=== PATIENT | male | born 1955 | race Two or more races ===

== ENCOUNTER 2024-05-13 08:08 | Outpatient (REF) | payer OTHER, SELFPAY ==
--- NOTE | 2024-05-13 08:13 | EMG_ITS ---
Bilateral median and ulnar motor and sensory studies were performed. Bilateral radial sensory study was performed and paraspinal muscles were tested with a needle. IMPRESSION: Mild bilateral ulnar neuropathy across cubital tunnel. There is no evidence of median neuropathy. MD RACHEL Herman/BENNY / [phone]
== END 2024-05-13 08:09 | disposition home or self-care (01) ==
LOC: HO.NEURO 08:08
PROVIDERS: PCP Internal Medicine; Visit Provider Internal Medicine
DX: Z13.89 Encounter for screening for other disorder (principal)

== ENCOUNTER 2024-07-16 10:49 | Outpatient (AMB) | payer OTHER, SELFPAY ==
--- NOTE | 2024-07-16 11:01 | HO.NEPHOV ---
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 Accompanied by: Self / Same As Patient Allergies azithromycin Allergy (Unknown, Verified 07/16/24 11:17) Rash levofloxacin Allergy (Unknown, Verified 07/16/24 11:17) rash metoprolol Allergy (Unknown, Verified 07/16/24 11:17) Rash penicillin G Allergy (Unknown, Verified 07/16/24 11:17) rash rifaximin [Xifaxan] Allergy (Unknown, Verified 07/16/24 11:17) Rash risperidone Allergy (Unknown, Verified 07/16/24 11:17) Rash Sulfacet-R Allergy (Unknown, Uncoded 07/16/24 11:17) Rash Medication List - Last Reviewed 07/16/24 by Mare Warner [place] apixaban (Eliquis) 5 mg PO BID divalproex ER 500 mg PO TID fluocinolone acetonide oil 0.01% drps otic (ears) lisinopril 40 mg PO DAILY lorazepam 1 mg PO DAILY PRN propranolol 60 mg PO BID quetiapine (Seroquel) 100 mg PO DAILY quetiapine mg PO DAILY rosuvastatin 20 mg PO BEDTIME HPI Comments Details: 68-year-old man with a history of hypertension has been referred for evaluation of hyponatremia. Few months ago he was hospitalized. He had diarrhea and was diagnosed with hypovolemic hyponatremia. Serum sodium was 121 at time admission. Subsequently improved to 131. Recent sodium was 132 and hence the referral. Of note he is on divalproex and lisinopril. He admits to drinking plenty of water. No specific urinary complaints. No polyuria polydipsia. History of renal cyst He has been followed by Dr. Durant. Underwent cystoscopy which was essentially unremarkable. [facility] Medical History GERD (gastroesophageal reflux disease) Polyp of colon Anxiety and depression Stenosis, cervical spine HLD (hyperlipidemia) H/O bipolar disorder Insomnia HTN (hypertension) Microscopic hematuria (~2016) Surgical History History of total knee replacement Family History Father CAD (coronary artery disease) Brother CAD (coronary artery disease) Review of Systems Const Denies fever(s) and Denies weight loss Card Denies chest pain Resp Denies cough and Denies hemoptysis GI Denies abdominal pain, Denies diarrhea and Denies nausea Musc Denies back pain Neuro Denies focal weakness Physical Exam Vital Signs: Last Vital Signs Pulse 60 07/16/24 11:15 BP 114/68 07/16/24 11:15 Pulse Ox 96 07/16/24 11:15 Oxygen Delivery Method Room Air 07/16/24 11:15 Const General: comfortable; No acute distress Orientation/consciousness: patient oriented x3 Eyes General: appearance normal, both eyes and all related structures Visual Red[place]: normal visual redding by confrontation Neck Neck: Yes supple and Yes no JVD Resp Effort & Inspection: normal respiratory effort and respiratory effort not decreased Auscultation: rhonchi Cardio Palpation: no palpable S3 and no palpable S4 Heart sounds: no rubs GI Inspection: Yes normal to inspection Palpation (GI): Soft to palpation Percussion: Yes normal to percussion Auscultation: normal bowel sounds General: Yes no CVA tenderness Back/Spine/Pelvis Back: no CVA tenderness Skin General skin exam: no petechiae and no purpura Neuro General: patient oriented x3 and no focal motor deficits Extrem General: No clubbing and No edema Results Reviewed Results Reviewed: Sodium 132 Magnesium 2.8 in 02/25/2024. Serum creatinine was 0.56 Nephrology Results: No Data to Display Assessment & Plan Assessment & Plan (1) HTN (hypertension): Code(s): I10 - Essential (primary) hypertension Category: Medical (2) Hyponatremia: Code(s): E87.1 - Hypo-osmolality and hyponatremia Category: Medical Plan 68-year-old man with history of hypertension and hyponatremia. Blood pressure is well controlled. Hyponatremia most likely due to decreased free water clearance. He has been drinking excess free water which could be a contributing factor. Both divalproex and lisinopril could be contributing to decreased free water clearance. I have initiated a workup for hyponatremia including urine studies. In the meantime encouraged him to limit free water intake. Switch lisinopril to valsartan and recheck serum sodium. Goal is to maintain serum sodium more than 130 millimoles. Magnesium was elevated in 02/25/2024. Recheck magnesium calcium phosphorus and PTH today. . Orders: Orders Creatinine Urine Today E87.1 - Hypo-osmolality and hyponatremia, I10 - Essential (primary) hypertension Osmolality, Serum Today E87.1 - Hypo-osmolality and hyponatremia, I10 - Essential (primary) hypertension Parathyroid Hormone Intact Today E87.1 - Hypo-osmolality and hyponatremia, I10 - Essential (primary) hypertension Basic Metabolic Panel Today E87.1 - Hypo-osmolality and hyponatremia, I10 - Essential (primary) hypertension TSH reflex Free T4 Today E87.1 - Hypo-osmolality and hyponatremia, I10 - Essential (primary) hypertension Sodium Urine Random Today E87.1 - Hypo-osmolality and hyponatremia, I10 - Essential (primary) hypertension Osmolality Urine Today E87.1 - Hypo-osmolality and hyponatremia, I10 - Essential (primary) hypertension Magnesium Today E87.1 - Hypo-osmolality and hyponatremia, I10 - Essential (primary) hypertension Phosphorus Today E87.1 - Hypo-osmolality and hyponatremia, I10 - Essential (primary) hypertension Medications: New valsartan 80 mg PO DAILY 30 tabs 1RF Coding Level of Care Code New Pt Level 4 (42145) Diagnoses HTN (hypertension) I10 Hyponatremia E87.1
[2024-07-16 11:15] VITALS: BP 114/68; PULSE 60; O2SAT 96
== END 2024-07-16 11:47 | disposition home or self-care (01) ==
PROVIDERS: PCP Internal Medicine; Referring Provider Internal Medicine; Visit Provider Internal Medicine Hypertension Specialist
DX: I10 Essential (primary) hypertension (principal); E87.1 Hypo-osmolality and hyponatremia
CPT/HCPCS: 99204

== ENCOUNTER → 2024-07-16 10:49 | Outpatient (BNVA) | payer OTHER, SELFPAY | PROVIDERS: PCP Internal Medicine; Referring Provider Internal Medicine; Visit Provider Internal Medicine Hypertension Specialist ==

== ENCOUNTER 2024-07-16 11:33 | Outpatient (REF) | payer OTHER, SELFPAY ==
[2024-07-16 18:47] LABS: Anion Gap 12 (12-20); Blood Urea Nitrogen 11 mg/dL (9-16); Calcium 9.6 mg/dL (8.4-10.2); Carbon Dioxide 27 mmol/L (22-29); Chloride 101 mmol/L (96-108); Estimated Glomerular Filt Rate > 60; Glucose Random 105 mg/dL (60-115); Magnesium 2.1 mg/dL (1.6-2.6); Potassium 4.6 mmol/L (3.3-5.1); Sodium 135 mmol/L (135-145); TSH reflex Free T4 1.19 uIU/mL (0.32-4.0)
[2024-07-16 18:53] LABS: Osmolality, Serum 281 mosm/kg (281-305)
[2024-07-16 19:01] LABS: Sodium Urine Random < 20.0 mmol/L
[2024-07-16 19:12] LABS: Osmolality Urine 628 mosm/kg (373-1093)
[2024-07-17 05:26] LABS: Parathyroid Hormone Intact 39.2 pg/mL (8.7-77.1)
== END 2024-07-16 11:34 | disposition home or self-care (01) ==
LOC: HO.HKASLDS 11:33
PROVIDERS: Visit Provider Internal Medicine Hypertension Specialist
DX: E87.1 Hypo-osmolality and hyponatremia (principal); I10 Essential (primary) hypertension
CPT/HCPCS: 36415; 80048; 82570; 83735; 83930; 83935; 83970; 84300; 84443; 99202

== ENCOUNTER 2024-07-30 09:18 | Outpatient (AMB) | payer OTHER, SELFPAY ==
[2024-07-30 09:32] VITALS: BP 122/66; PULSE 61; O2SAT 95; BMI 36.0
--- NOTE | 2024-07-30 09:32 | HO.NEPHOV ---
Vital Signs 07/30/24 09:32 Height 5 ft 6 in Weight 223 lb BMI 36.0 BP 122/66 Blood Pressure Location Lt brachial Position Sitting Pulse 61 Pulse Source Pulse Oximeter Pulse Oximetry (%) 95 Oxygen Delivery Method Room Air Intake Visit Reasons: 3 weeks follow up/ Conf Director Software Quality Assurance Required: No Accompanied by: Self / Same As Patient Allergies azithromycin Allergy (Unknown, Verified 07/30/24 09:36) Rash levofloxacin Allergy (Unknown, Verified 07/30/24 09:36) rash metoprolol Allergy (Unknown, Verified 07/30/24 09:36) Rash penicillin G Allergy (Unknown, Verified 07/30/24 09:36) rash rifaximin [Xifaxan] Allergy (Unknown, Verified 07/30/24 09:36) Rash risperidone Allergy (Unknown, Verified 07/30/24 09:36) Rash Sulfacet-R Allergy (Unknown, Uncoded 07/16/24 11:17) Rash Medication List - Last Reconciled 07/30/24 by Cyrus Messina MD apixaban (Eliquis) 5 mg PO BID divalproex ER 500 mg PO TID fluocinolone acetonide oil 0.01% drps otic (ears) lorazepam 1 mg PO DAILY PRN propranolol 60 mg PO BID quetiapine (Seroquel) 100 mg PO DAILY quetiapine mg PO DAILY rosuvastatin 20 mg PO BEDTIME valsartan 80 mg PO DAILY HPI Comments Details: 68-year-old man with a history of hypertension has been referred for evaluation of hyponatremia. Few months ago he was hospitalized. He had diarrhea and was diagnosed with hypovolemic hyponatremia. Serum sodium was 121 at time admission. Subsequently improved to 131. Recent sodium was 132 and hence the referral. Of note he is on divalproex and lisinopril. He admits to drinking plenty of water. No specific urinary complaints. No polyuria polydipsia. History of renal cyst He has been followed by Dr. Durant. Underwent cystoscopy which was essentially unremarkable. [facility] Medical History (Updated 07/16/24 @ 11:27 by Cyrus Messina MD) GERD (gastroesophageal reflux disease) Polyp of colon Anxiety and depression Stenosis, cervical spine HLD (hyperlipidemia) H/O bipolar disorder Insomnia HTN (hypertension) Microscopic hematuria (~2016) Surgical History History of total knee replacement Family History Father CAD (coronary artery disease) Brother CAD (coronary artery disease) Physical Exam Vital Signs: Last Vital Signs Pulse 61 07/30/24 09:32 BP 122/66 07/30/24 09:32 Pulse Ox 95 07/30/24 09:32 Oxygen Delivery Method Room Air 07/30/24 09:32 BMI result Body Mass Index 36.0 Const General: comfortable; No acute distress Orientation/consciousness: patient oriented x3 Eyes General: appearance normal, both eyes and all related structures Visual [place]: normal visual redding by confrontation Neck Neck: Yes supple and Yes no JVD Resp Effort & Inspection: normal respiratory effort and respiratory effort not decreased Auscultation: rhonchi Cardio Palpation: no palpable S3 and no palpable S4 Heart sounds: no rubs GI Inspection: Yes normal to inspection Palpation (GI): Soft to palpation Percussion: Yes normal to percussion Auscultation: normal bowel sounds General: Yes no CVA tenderness Back/Spine/Pelvis Back: no CVA tenderness Skin General skin exam: no petechiae and no purpura Neuro General: patient oriented x3 and no focal motor deficits Extrem General: No clubbing and No edema Results Reviewed Nephrology Results: Sodium 135 mmol/L (135-145) 07/16/24 Potassium 4.6 mmol/L (3.3-5.1) 07/16/24 Chloride 101 mmol/L (96-108) 07/16/24 Carbon Dioxide 27 mmol/L (22-29) 07/16/24 BUN 11 mg/dL (9-16) 07/16/24 Creatinine 0.66 mg/dL (0.5-1.4) 07/16/24 Calcium 9.6 mg/dL (8.4-10.2) 07/16/24 PTH Intact 39.2 pg/mL (8.7-77.1) 07/16/24 Urine Creatinine 158.50 mg/dL 07/16/24 Assessment & Plan Assessment & Plan (1) HTN (hypertension): Code(s): I10 - Essential (primary) hypertension Category: Medical (2) Hyponatremia: Code(s): E87.1 - Hypo-osmolality and hyponatremia Category: Medical Plan 68-year-old man with history of hypertension and hyponatremia. Blood pressure is well controlled. Hyponatremia most likely due to decreased free water clearance. He has been drinking excess free water which could be a contributing factor. Both divalproex and lisinopril could be contributing to decreased free water clearance. In the meantime encouraged him to limit free water intake. Switched lisinopril to valsartan Tolerating well Goal is to maintain serum sodium more than 133 millimoles. . Orders: Orders Magnesium 6 Months E87.1 - Hypo-osmolality and hyponatremia Basic Metabolic Panel 6 Months E87.1 - Hypo-osmolality and hyponatremia Phosphorus 6 Months E87.1 - Hypo-osmolality and hyponatremia Coding Level of Care Code Est Pt Level 4 (17138) Diagnoses HTN (hypertension) I10 Hyponatremia E87.1
== END 2024-07-30 10:05 | disposition home or self-care (01) ==
PROVIDERS: PCP Internal Medicine; Visit Provider Internal Medicine Hypertension Specialist
DX: I10 Essential (primary) hypertension (principal); E87.1 Hypo-osmolality and hyponatremia
CPT/HCPCS: 99214

== ENCOUNTER → 2024-07-30 09:18 | Outpatient (BNVA) | payer OTHER, SELFPAY | PROVIDERS: PCP Internal Medicine; Visit Provider Internal Medicine Hypertension Specialist | DX: I10 Essential (primary) hypertension (principal); E87.1 Hypo-osmolality and hyponatremia | CPT/HCPCS: 99212 ==

== ENCOUNTER 2025-01-13 09:41 | Outpatient (AMB) | payer OTHER, SELFPAY ==
--- NOTE | 2025-01-13 10:14 | HO.NEPHOV ---
Vital Signs 01/13/25 10:16 Height 5 ft 6 in Weight 231 lb 4 oz BMI 37.3 BP 132/70 Blood Pressure Location Lt brachial Position Sitting Pulse 68 Pulse Source Pulse Oximeter Pulse Oximetry (%) 98 Oxygen Delivery Method Room Air Intake Visit Reasons: Dr Messina pt- Rt side pain Hand Ii Blocker Required: No Accompanied by: Self / Same As Patient Allergies azithromycin Allergy (Unknown, Verified 01/13/25 10:16) Rash levofloxacin Allergy (Unknown, Verified 01/13/25 10:16) rash metoprolol Allergy (Unknown, Verified 01/13/25 10:16) Rash penicillin G Allergy (Unknown, Verified 01/13/25 10:16) rash rifaximin [Xifaxan] Allergy (Unknown, Verified 01/13/25 10:16) Rash risperidone Allergy (Unknown, Verified 01/13/25 10:16) Rash Sulfacet-R Allergy (Unknown, Uncoded 07/16/24 11:17) Rash HPI Comments Details: I had the privilege of seeing Imer as an urgent visit . He is a 68-year-old man with a history of hypertension as well as H/O hyponatremia. He is on divalproex and lisinopril. He has been having right flank pain without radiation. He denies hematuria, dysuria, fever, nausea, vomiting or diarrhea. He has a history of renal cyst and has seen Dr. Durant. He had cystoscopy in the past and apparently had been essentially unremarkable. He denies fever or any other systemic complaints [facility] Medical History (Updated 01/13/25 @ 10:33 by Mook Paris MD) GERD (gastroesophageal reflux disease) Polyp of colon Anxiety and depression Stenosis, cervical spine HLD (hyperlipidemia) H/O bipolar disorder Insomnia HTN (hypertension) Microscopic hematuria (~2015) Surgical History History of total knee replacement Family History Father CAD (coronary artery disease) Brother CAD (coronary artery disease) Review of Systems Const All systems reviewed & are unremarkable except as noted in HPI and below Physical Exam Vital Signs: Last Vital Signs Pulse 68 01/13/25 10:16 BP 132/70 01/13/25 10:16 Pulse Ox 98 01/13/25 10:16 Oxygen Delivery Method Room Air 01/13/25 10:16 BMI result Body Mass Index 37.3 Const General: comfortable and no acute distress Orientation/consciousness: patient oriented x3 HEENT Head: Yes normocephalic Mouth: Normal oral and palatal mucosa present Eyes EOM: EOMs intact bilaterally Neck Neck: Yes supple Resp Auscultation: clear to auscultation bilaterally Cardio Jugular venous distension: no JVD Rate: regular rate GI Palpation (GI): Soft to palpation Auscultation: normal bowel sounds General: Yes no CVA tenderness Back/Spine/Pelvis Back: no CVA tenderness Skin General skin exam: no rashes or lesions noted Neuro General: patient oriented x3 and moves all extremities Extrem General: Yes no pedal edema Assessment & Plan Assessment & Plan (1) Acute flank pain: Code(s): R10.9 - Unspecified abdominal pain Category: Medical (2) HTN (hypertension): Code(s): I10 - Essential (primary) hypertension Category: Medical Qualifiers: Hypertension type: primary hypertension Qualified Code(s): I10 - Essential (primary) hypertension Plan Flank pain - acute- needs to R/O renal stone; USS/ Labs/Urine studies ordered Blood pressure is well controlled. Tolerating current BP medications Further management is pending data.Most of visit time spent-- -- discussing differential diagnosis and management strategies Answered all questions. Has a F/U with Dr Mayuri YOU Orders: Orders UA and rflx microscopic Today I10 - Essential (primary) hypertension, R10.9 - Unspecified abdominal pain Creatinine Today I10 - Essential (primary) hypertension, R10.9 - Unspecified abdominal pain US renal BI 1 Week I10 - Essential (primary) hypertension, R10.9 - Unspecified abdominal pain Blood Urea Nitrogen Today I10 - Essential (primary) hypertension, R10.9 - Unspecified abdominal pain Electrolytes Today I10 - Essential (primary) hypertension, R10.9 - Unspecified abdominal pain Calcium Today I10 - Essential (primary) hypertension, R10.9 - Unspecified abdominal pain Coding Level of Care Code Est Pt Level 4 (11927) Diagnoses Acute flank pain R10.9 Primary hypertension I10 Hypertension type: primary hypertension
[2025-01-13 10:16] VITALS: BP 132/70; PULSE 68; O2SAT 98; BMI 37.3
--- OUTSIDE RECORDS SUMMARY | 2025-01-13 11:03 | XMS_ITS | Data Portability ---
Author Organization [employer] [place] [employer] Address [address] [place] [phone] Care Team Providers Care Tube Repairer Name Role Phone MIRIAM BUCHANAN Primary Care Provider [phone] [facility] OTHER Assessment Encounter Date Assessment Date Assessment LastModified by Organization Details LastModified Time 05/23/2024 05/23/2024 service called for abd pain found 68 yom with hx GERD, HTN, DM, IBS, bipolar and asthma c/o > 6 months LLQ abd pain, sensation of bloating able continue regular PO solid and fluid intake no n/v/d able continue regular activities reports 4 month prior colonscopsy with polyp bx at , unsuccessful attempts to obtain records unable to visualize records of colonsopsy or biopsy via HIE function VSS +LLQ tendenress, no guarding/no rebound #Chronic LLQ Pain pt to continue f/up with outpatient evaluation attempt PHR access for records otherwise return to primary team vkudesia Not available 05/24/2024 00:30:59 Plan of Treatment Reminders Order Date Submit Date Provider Last Modified By Organization Details Last Modified Time Details Appointments None record ed. Lab None record ed. Referral None record ed. Procedures None record ed. Surgeries None record ed. Imaging None record ed. Medication Orders None record ed. Patient TargetsNo targets recorded. Patient InstructionsNo instructions recorded. Reason for Referral None Reported. Medical Equipment None Reported. Allergies Allergen ID Allergen Name Allergen Category Reaction Reaction Severity Criticality Documentation Date Start Date Code Code System Note Provider Name and Address Organization Details Recorded Time 7731 Product containin g penicilli n (product) medicatio n Not available Not available Not available 08/05/2024 71737 8001 SNOMED Not Available [facility] - production 03:39:25 7732 metoprolo l Not available Not available Not available Not available 08/05/2024 6918 RxNorm Not Available [facility] - production 4 03:39:25 Medications Name Sig Start Date Stop Date Status Note LastModified by Organization Details LastModified Time neomycin-polymy verónica-hydrocort 3.5 mg/mL-10,000 unit/mL-1 % ear solution active Not Available Not Available Not Available trazodone 50 mg tablet active Not Available Not Available Not Available sucralfate 100 mg/mL oral suspension active Not Available Not Available N ot Available prednisone 20 mg tablet active Not Available Not Available No t Available clindamycin HCl 150 mg capsule active Not Available Not Availab le Not Available propranolol 60 mg tablet active Not Available Not Available No t Available amlodipine 5 mg tablet active Not Available Not Available Not Available doxycycline monohydrate 100 mg tablet active Not Available Not Available No t Available triamcinolone acetonide 0.1 % topical cream active Not Available Not Availabl e Not Available oxycodone-aceta minophen 5 mg-325 mg tablet active Not Available Not Available Not Available cephalexin 500 mg capsule active Not Available Not Available N ot Available tacrolimus 0.1 % topical ointment active Not Available Not Available Not Available prednisone 50 mg tablet TAKE 1 TABLET BY MOUTH EVERY DAY FOR 5 DAYS active Not Available Not Available No t Available divalproex ER 500 mg tablet,extended release 24 hr active Not Available Not Availabl e Not Available lorazepam 1 mg tablet active Not Available Not Available Not Available albuterol sulfate HFA 90 mcg/actuation aerosol inhaler INHALE 2 PUFFS BY MOUTH EVERY 4 TO 6 HOURS NEEDED FOR DYSPNEA active Not Available Not Available No t Available lisinopril 40 mg tablet active Not Available Not Available No t Available fluticasone propionate 50 mcg/actuation nasal spray,suspensio n active Not Available Not Available Not Available clotrimazole 1 % topical cream APPLY TWO TIMES A DAY FOR 14 DAYS active Not Available Not Available No t Available neomycin 3.5 mg/g-polymyxin B 10,000 unit/g-dexameth 0.1 % eye oint APPLY TO THE RIGHT EYE TWICE DAILY FOR 7 DAYS active Not Available Not Available No t Available Allergy Relief (loratadine) 10 mg tablet active Not Available Not Available No t Available ciprofloxacin 0.3 %-dexamethasone 0.1 % ear drops,suspensio n active Not Available Not Available Not Available rosuvastatin 20 mg tablet active Not Available Not Available No t Available alfuzosin ER 10 mg tablet,extended release 24 hr active Not Available Not Availabl e Not Available fluocinolone acetonide oil 0.01 % ear drops active Not Available Not Available Not Available quetiapine 50 mg tablet active Not Available Not Available No t Available Vitals Date Recorded Heart rate Oxygen saturation Oxygen saturation in Arterial blood by Pulse oximetry Body height Respiratory rate Body temperature Body weight Systolic blood pressure Diastolic blood pressure Provider Name and Address Organization Details Last Updated DateTime 4 72 /min 98 % 98 % 167.64 cm 16 /min 98.7 [degF] 958034. 16 g 138 mm[Hg] 88 mm[Hg] Not Available [facility] production 4 21:34:05 Social History None recorded. Functional Status None recorded. Mental Status None recorded. Family History Nothing Reported. Medical History No medical history recorded. Past Encounters Encounter ID Performer Location Encounter Start Date Encounter Closed Date Diagnosis/Indication Diagnosis SNOMED-CT Code Diagnosis ICD10 Code Diagnosis Note [id number] Marcin Alberto MD [facility] [address] [place] [phone] 05/23/2024 20:34:02 05/24/2024 18:49:08 Abdominal pain 94567066 R10.9 Health Concerns Section Related Observation LastModified by Organization Detai ls LastModified Time None Recorded Concern Status LastModified by Organization Details LastModified Time None Recorded Advance Directives Directive None Recorded Payers Encounter Date Sequence Insurance Name Policy Number Policy Michelle Covered Member ID Michelle Member ID Guarantor Name 05/23/2024 1 [facility] - DOS ON OR AFTER 2023 - DUAL ELIGIBLE - JAIL OPTIONS AND ONE CARE (MEDICARE REPLACEMENT/ADV ANTAGE - HMO) Imer Bennett [id number] Imer Bennett Notes Date Note Type Note Provider Name and Address Organization Details Recorded Time 05/23/2024 text/html HPI: PT's CP Mariah reporting abdominal pain.Members CP calling in to place a referral, member identified via name and . Per CP member has been up until about 2a with abdominal pain, BM x1 with blood noted on the toilet paper with wiping, no n/v, no bloating or tenderness, no fever/chills, no chest pain or sob, however, member reports that his legs are swollen. Member agreeable to an [facility] visit. ................... ................... ................... ................... ................... ................... ................... ........ [facility] Nurse Triage Notes (Elzbieta Mackenzie): Chief Complaints: Abdominal Pain PMH: Hypertension, Diabetes, COPD/Asthma Allergies: Penicillin, Metoprolol Other Allergies: PCN, metoprolol, risperdal, sulfa and levaquin Comments: [facility] RN did not require any additional information to process this visit. PMHx GERD, HTN, DM, IBS, bipolar and asthma. ALLERGIES- PCN, metoprolol, risperdal, sulfa and levaquin ................... ................... ................... ................... ................... ................... ................... ........ Conventional Mortgage Underwriter Note From Wellington Giles: [facility] makes pt contact, a 68 YO M w/ a CC of LLQ pain.PT explains a lengthy HX of pre existing illness. PT vitals obtained and WNL. PT describes 20 years ago began seeing blood w/ bowel movement. PTs doctor continually brushed him off over all the years. Eventually pt has a colonoscopy in january at [facility] where they found 2 polyps and took them for biopsy. PT explains he never received the results but his symptoms have been slowly getting worse. PT now has a new doctor, Dr. Patton in the [facility] who wants to repeat the colonoscopy and endoscopy but has no paperwork from the [facility]. [facility] contacts [facility] and explains the above mentioned. [facility] confirms that the pts medical documentation is fairly confusing. [facility] recommends PT somehow make a mychart account which would then give him access to the appropriate medical documents and then give them to to have the procedure done. [facility] explains [place] not have the means to immediately fix this issue with documentation. PT LLQ pain noted on palpation, although is recurring pain and symptoms of bloating. PT does have a prescribed stool softener that he explains works well but without it he would be in a lot of pain. [facility] confirms with PT the need for my chart to try and retrieve the documentation for his new [facility] doctor. [facility] explains if his pain gets suddenly worse or he cant have a bowel movement at all that he should seek a higher level of care. And to try and follow up with his PCP and . ................... ................... ................... ................... ................... ................... ................... ........ Disposition: Fulfilled Marcin Alberto MD [address] [facility], [place], [phone], [employer] 05/24/2024 00:31:11
--- OUTSIDE RECORDS SUMMARY | 2025-01-13 11:03 | XMS_ITS | Data Portability ---
Author Organization [place] [facility], Allergy Address [address] [address] Care Team Providers Care Burlap Spreader Name Role Phone MIRIAM BUCHANAN Primary Care Provider Assessment Encounter Date Assessment Date Assessment LastModified by Organization Details LastModified Time 11/25/2024 11/25/2024 Patient presents for evaluation of the left ear and the nose. Physical exam reveals intact TM with well-aerated middle ear space. Nasal mucosa is dry without evidence of bleeding. Agree with provider who recommended saline spray. Patient to use this QID. Also recommend saline gel at bedtime and a cool mist humidifier. Audiometric testing today reveals some advancement of his hearing loss on the left. Asymmetry previously worked up with MRI of IACs in 2019, which was reviewed today and was negative for acoustic neuroma. Suspect there is little utility in repeating the scan. Tympanometry today confirms no effusion. Maxillofacial sinus CT dated 10/24/24 reviewed today - no sinusitis. Reviewed with patient no evidence of infection in the ear or nose and no treatment required. Patient would like to return for nasal and throat evaluation, and this has been arranged. Also recommend he discuss this symptom with his PCP again and consider re-evaluation by pulmonology. We discussed that he should try not to clear the throat so forcefully. [email or web address] Not available 11/25/2024 10:27:10 01/01/2025 01/01/2025 69-year-old male presents for reevaluation of facial pain and blood-tinged mucus. Fiberoptic laryngoscopy today was benign and was without evidence of bleeding or purulence. Left upper dental extraction site is erythematous, but no alejandro purulence. We discussed that his symptoms are likely due to underlying dental infection. He had a CT maxilloface with contrast 10/24/2024 at [facility] which was personally reviewed. CT did not show any evidence of sinusitis. Incidental finding of right mucous retention cyst in the right maxillary sinus. There is also a small periapical lucency in the left cuspid differential including apical periodontitis, small periapical abscess, or cyst. I recommended that he follow-up with his dentist, but patient reports that he has followed-up with several dentists and this has not been beneficial. We discussed consult with an oral surgeon which he is very eager to proceed with. Referral was placed. I also recommended treatment for dental infection with antibiotics which patient declined. He may follow up with our office as needed. Patient with epistaxis. We discussed basic epistaxis precautions including avoidance of nose blowing, nose picking, straining, heavy lifting, exertion, bending forward, and sneezing with the mouth open for 1-2 weeks. I recommended use of nasal saline spray 5-6 times daily and a water-based lubricant, such as KY Jelly, intranasally 3 times a day. If the bleeding continues or worsens, the patient was instructed to call the office for reevaluation. [email or web address] Not available 01/01/2025 16:49:50 Plan of Treatment Reminders Order Date Submit Date Provider Last Modified By Organization Details Last Modified Time Details Appointments None recorded. Lab None recorded. Referral oral surgery/d entist referral 2024 025 [facility], [address] [place], [address], 08:54:37 Procedures None recorded. Surgeries None recorded. Imaging None recorded. Medication Orders None recorded. Patient TargetsNo targets recorded. Patient InstructionsNo instructions recorded. Reason for Referral Oral Surgery/dentist Referra l for Infection of tooth Referring Physician: Neri Pierce, Otolaryngology, Encounter Date: 01/01/2025 Results Created Date Observation Date Name Description Value Unit Range Abnormal Flag Note LastModifiedBy Organization Detail LastModifiedTime 11/25/19 audio gram No observ ation record ed. BARCODE Not Available 2024 11:27:09 01/03/2010/24/2024 CT, maxil lofac ial, w/ contr ast No observ ation record ed. Not Available 12/07 13:45:34 Result Notes None recorded. Problems Name Problem SNOMED Code Status Onset Date Resolution Date Notes Provider Name and Address Organization Details Recorded Time Bilateral tinnitus [id number] 02 Active 2018 Tinnitus, bilateral ; Note: Date Diagnosed : 07/09/2019 3:39 PM (H93.13) Not Available [facility] 4 02:25:38 Deviated nasal septum 038030549 Active 2015 Deviated nasal septum; Note: Date Diagnosed : 09/15/2016 3:35 PM (J34.2) Not Available [facility] 4 02:25:38 Obstructi ve sleep apnea syndrome 90601786 Active 2018 Obstructi ve sleep apnea (adult) (pediatri c); Note: Date Diagnosed : 07/09/2019 3:39 PM (G47.33) Not Available [facility] 4 02:25:29 Hypertrop hy of nasal turbinate s 72843716 Active 2015 Hypertrop hy of nasal turbinate s; Note: Date Diagnosed : 09/15/2016 3:40 PM (J34.3) Not Available [facility] 4 02:25:22 Pain of left temporoma ndibular joint 95143485029 814733 Active 2018 Arthralgi a of left temporoma ndibular joint; Note: Date Diagnosed : 11/05/2018 3:34 PM (M26.622) Not Available [facility] 4 02:25:24 Impacted cerumen in left ear 05083076817 96910 Active 2019 Impacted cerumen, left ear; Note: Date Diagnosed : 05/03/2020 10:11 AM (H61.22) Not Available [facility] 4 02:25:38 Impacted cerumen of bilateral ears 76316769812 62805 Active 2017 Impacted cerumen, bilateral ; Note: Date Diagnosed : 8 11:12 AM (H61.23) Not Available [facility] 4 02:25:33 Allergic rhinitis 55068581 Active 2017 Perennial allergic rhinitis; Note: Date Diagnosed : 09/09/2018 12:47 PM (J30.89) Not Available [facility] 4 02:25:32 Otalgia of left ear 3161352034 Active 2018 Otalgia, left ear; Note: Date Diagnosed : 11/05/2018 3:34 PM (H92.02) Not Available [facility] 4 02:25:20 Tinnitus of left ear 77447916018 06 Active 2017 Tinnitus, left ear; Note: Date Diagnosed : 8 11:28 AM (H93.12) Not Available [facility] 4 02:25:30 Nasal congestio n 01027017 Active 2015 Nasal congestio n; Note: Date Diagnosed : 09/15/2016 3:35 PM (R09.81) Not Available [facility] 4 02:25:29 Hemoptysi s 00442436 Active 2018 Hemoptysi s; Note: Date Diagnosed : 11/22/2018 12:51 PM (R04.2) Not Available [facility] 4 02:25:36 Sensorine ural hearing loss of bilateral ears 061646515 Active 2017 Sensorine ural hearing loss, bilateral ; Note: Date Diagnosed : 8 11:28 AM (H90.3) Not Available [facility] 4 02:25:42 Non-toxic uninodula r goiter 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 Active 2018 Nontoxic uninodula r goiter; Note: Date Diagnosed : 9 3:26 PM (E04.1) Not Available [facility] 4 02:25:39 Bleeding from nose 374376761 Active 2024 BINTA BADILLO PA-C [address] [facility] [address], [place], [address] , [place] [facility] 5 10:27:14 Nasal mucosa dry 56551086 Active 2024 BINTA BADILLO PA-C [address], [facility] [place] [place], [address] , [place] - [facility] 10:27:27 Infection of tooth 244630586 Active 2024 NERI PIERCE PA-C [address], [facility] [place] [place], [address] , [place] - [facility] 16:39:52 Pain in face 51921578 Active 2024 NERI PIERCE PA-C [address], [facility] [place] [place], [address] , [place] [facility] 16:39:57 Atypical facial pain 43506666 Active 2024 NERI PIERCE PA-C [address], [facility] [place], [address] , [place] - [facility] 16:40:10 Anterior epistaxis 589821809 Active 2024 NERI PIERCE PA-C [address], [facility] [place] [place], [address] , [place] - [facility] 16:40:20 Problem Notes None recorded. Procedures Surgical History Date Name Laterality Status Provider Name and Address Organization Details Recorded Time 01/01/2025 FOL_DP completed NERI PIERCE [facility]C [address] [facility] [address] [address], [place], [address], [place] - [facility] 01/01/2025 16:45:05 11/25/2024 Comp Audio with Tymps (20672 & 36148) completed Larry VALDERRAMA [address], [place], [address], [place] - [facility] 11/25/2024 09:59:04 Imaging Results Imaging Date Name Status LastModified by Organiz ation Details LastModified Time 11/25/2024 audiogram completed BARCODE Information no t available 11/25/2024 11:27:09 10/24/2024 CT, maxillofacial, w/ contrast completed [email or web address] Information not available 01/02/2025 13:45:34 Procedure Notes None recorded. Medical Equipment None Reported. Allergies Allergen ID Allergen Name Allergen Category Reaction Reaction Severity Criticality Documentation Date Start Date Code Code System Note Provider Name and Address Organization Details Recorded Time 30636 levofloxa demetria medicatio n other Not available Not available 02/19/2024 60830 RxNorm React ion: unkno wn, unspe cifie d;; Not Available [facility] 4 00:55:46 19988 penicilli n V potassium medicatio n other Not available Not available 02/19/2024 60540 5 RxNorm React ion: unkno wn, unspe cifie d;; Not Available [facility] 4 00:55:48 35812 Substance with sulfonami de structure and antibacte rial mechanism of action (substanc e) medicatio n other Not available Not available 02/19/2024 77203 8003 SNOMED React ion: unkno wn, unspe cifie d;; Not Available [facility] 4 00:55:54 Medications Name Sig Start Date Stop Date Status Note LastModified by Organization Details LastModified Time quetiapin e 25 mg tablet 11/25 completed Medicati on ID: [id number] D uration Value: 90 Brand Name: quetiapi ne Send Method: E-Prescr ibed Sub s Allowed: subs OK Medic ationGen ericName : quetiapi ne Not Available Not Available Not Available amoxicill in 500 mg capsule 11/25 completed Not Available Not Available Not Available neomycin- polymyxin -hydrocor t 3.5 mg/mL-10, 000 unit/mL-1 % ear solution 05/03 completed Medicati on ID: [id number] D uration Value: 10 Reason: () Brand Name: neomycin -polymyx in-HC Se nd Method: E-Prescr ibed Sub s Allowed: subs OK Medic ationGen ericName : neomycin -polymyx in-HC Not Available Not Available Not Available acetic acid 2 % ear solution 11/25 completed Not Available Not Available Not Available prednison e 10 mg tablet 12/08 completed Medicati on ID: [id number] D uration Value: 5 Brand Name: predniso ne Send Method: E-Prescr ibed Sub s Allowed: subs OK Medic ationGen ericName : predniso ne Not Available Not Available Not Available doxycycli ne hyclate 100 mg capsule 09/15 completed Medicati on ID: [id number] D uration Value: 10 Brand Name: doxycycl ine hyclate Send Method: E-Prescr ibed Sub s Allowed: subs OK Medic ationGen ericName : doxycycl ine hyclate Not Available Not Available Not Available cefuroxim e axetil 250 mg tablet 05/03 completed Medicati on ID: [id number] D uration Value: 10 Reason: () Brand Name: cefuroxi me axetil S end Method: E-Prescr ibed Sub s Allowed: subs OK Medic ationGen ericName : cefuroxi me axetil Not Available Not Available Not Available clindamyc in HCl 300 mg capsule 11/25 completed Not Available Not Available Not Available Vitamin C 500 mg tablet 2018 active Medicati on ID: [id number] D uration Value: 100 Brand Name: Vitamin C Send Method: E-Prescr ibed Sub s Allowed: subs OK Medic ationGen ericName : Vitamin C Not Available Not Available Not Available trazodone 50 mg tablet active Not Available Not Available Not Available ibuprofen 800 mg tablet active Not Available Not Available Not Available sucralfat e 100 mg/mL oral suspensio n active Not Available Not Available Not Available prednison e 20 mg tablet 11/25 completed Not Available Not Available Not Available quetiapin e 200 mg tablet active Not Available Not Available Not Available clonazepa m 1 mg tablet 05/03 completed Medicati on ID: [id number] P rescribe d By Name: Mateusz Dowell nd Name: clonazep am Send Method: E-Prescr ibed Sub s Allowed: subs OK Speci al Instruct ion: Take 1 tablet 1 hour prior to MRI, may take second one if needed M edicatio nGeneric Name: clonazep am Not Available Not Available Not Available clindamyc in HCl 150 mg capsule active Not Available Not Available Not Available valsartan 80 mg tablet active Not Available Not Available Not Available Zyrtec 10 mg tablet 10/20/ 2020 active Medicati on ID: [id number] D uration Value: 90 Prescri bed By Name: Tarun richey M.D. Bra nd Name: Zyrtec S end Method: E-Prescr ibed Sub s Allowed: subs OK Speci al Instruct ion: TAKE 1 TABLET BY MOUTH EVERY DAY Medi cationGe nericNam e: Zyrtec Not Available Not Available Not Available propranol ol 60 mg tablet active Not Available Not Available Not Available quetiapin e 100 mg tablet 11/29 completed Medicati on ID: [id number] D uration Value: 30 Reason: () Brand Name: quetiapi ne Send Method: E-Prescr ibed Sub s Allowed: subs OK Medic ationGen ericName : quetiapi ne Not Available Not Available Not Available alprazola m 0.5 mg tablet 05/03 completed Medicati on ID: [id number] D uration Value: 1 Reason: () Brand Name: alprazol am Send Method: E-Prescr ibed Sub s Allowed: subs OK Medic ationGen ericName : alprazol am Not Available Not Available Not Available lorazepam 0.5 mg tablet 2018 active Medicati on ID: [id number] D uration Value: 30 Brand Name: lorazepa m Send Method: E-Prescr ibed Sub s Allowed: subs OK Medic ationGen ericName : lorazepa m Not Available Not Available Not Available trazodone 100 mg tablet 11/25 completed Not Available Not Available Not Available Ponaris nasal solution 2 puff into both nostrils 11/25 completed Medicati on ID: [id number] B rand Name: Ponaris Send Method: E-Prescr ibed Sub s Allowed: subs OK Medic ationGen ericName : Ponaris Not Available Not Available Not Available triamcino lone acetonide 0.1 % topical ointment 11/25 completed Not Available Not Available Not Available clotrimaz ole-betam ethasone 1 %-0.05 % topical cream 12/08 completed Medicati on ID: [id number] D uration Value: 15 Brand Name: clotrima zole-bet amethaso ne Send Method: E-Prescr ibed Sub s Allowed: subs OK Medic ationGen ericName : clotrima zole-bet amethaso ne Not Available Not Available Not Available divalproe x ER 500 mg tablet,ex tended release 24 hr active Not Available Not Available Not Available omeprazol e 20 mg capsule,d elayed release 11/25 completed Medicati on ID: [id number] D uration Value: 30 Brand Name: omeprazo le Send Method: E-Prescr ibed Sub s Allowed: subs OK Medic ationGen ericName : omeprazo le Not Available Not Available Not Available gabapenti n 100 mg capsule 12/08 completed Medicati on ID: [id number] D uration Value: 90 Brand Name: gabapent in Send Method: E-Prescr ibed Sub s Allowed: subs OK Medic ationGen ericName : gabapent in Not Available Not Available Not Available lorazepam 1 mg tablet active Not Available Not Available Not Available azelastin e 137 mcg (0.1 %) nasal spray 2 spray into both nostrils 12/08 completed Medicati on ID: [id number] P marline d By Name: Mateusz Le nd Name: azelasti ne Send Method: E-Prescr ibed Sub s Allowed: subs OK Medic ationGen ericName : azelasti ne Not Available Not Available Not Available ibuprofen 600 mg tablet 11/25 completed Not Available Not Available Not Available polyethyl abena glycol 3350 17 gram/dose oral powder active Not Available Not Available Not Available lisinopri l 40 mg tablet active Not Available Not Available Not Available ondansetr on 4 mg disintegr ating tablet DISSOLVE 1 TABLET ON THE TONGUE EVERY 8 HOURS NEEDED FOR NAUSEA AND VOMITING 11/25 completed Not Available Not Available Not Available fluticaso ne propionat e 50 mcg/actua tion nasal spray,jamarcus pension 2 puff once a day active Not Available Not Available No t Available dicyclomi ne 10 mg capsule 05/03 completed Medicati on ID: [id number] D uration Value: 30 Reason: () Brand Name: dicyclom ine Send Method: E-Prescr ibed Sub s Allowed: subs OK Medic ationGen ericName : dicyclom ine Not Available Not Available Not Available ipratropi um bromide 21 mcg (0.03 %) nasal spray 2 spray into both nostrils 05/03 completed Medicati on ID: [id number] P marline [place] By Name: Mateusz Le nd Name: ipratrop ium bromide Send Method: E-Prescr ibed Sub s Allowed: subs OK Medic ationGen ericName : ipratrop ium bromide Not Available Not Available Not Available naproxen 500 mg tablet 11/25 completed Not Available Not Available Not Available esomepraz ole magnesium 20 mg capsule,d elayed release active Not Available Not Available Not Available Allergy Relief (loratadi ne) 10 mg tablet 11/25 completed Not Available Not Available Not Available rosuvasta tin 20 mg tablet active Not Available Not Available Not Available alfuzosin ER 10 mg tablet,ex tended release 24 hr active Not Available Not Available Not Available chlorhexi dine gluconate 0.12 % mouthwash active Not Available Not Available No t Available fluocinol one acetonide oil 0.01 % ear drops INSTILL 5 DROPS INTO AFFECTED EAR TWICE A DAY FOR 7 DAYS active Not Available Not Available No t Available quetiapin e 50 mg tablet 11/25 completed Not Available Not Available Not Available peg 3350 240 gram-elec trolytes 22.72 gram-6.72 g-5.84 g powdr kendra wade 2018 active Medicati on ID: [id number] D uration Value: 1 Brand Name: peg 3350-charlette ctrolyte s Send Method: E-Prescr ibed Sub s Allowed: subs OK Medic ationGen ericName : peg 3350-charlette ctrolyte s Not Available Not Available Not Available FeroSul 325 mg (65 mg iron) tablet 11/25 completed Medicati on ID: [id number] D uration Value: 100 Brand Name: ferrous sulfate Send Method: E-Prescr ibed Sub s Allowed: subs OK Medic ationGen ericName : ferrous sulfate Not Available Not Available Not Available diclofena c 1 % topical gel 05/03 completed Medicati on ID: [id number] D uration Value: 14 Reason: () Brand Name: diclofen ac sodium S end Method: E-Prescr ibed Sub s Allowed: subs OK Medic ationGen ericName : diclofen ac sodium Not Available Not Available Not Available GaviLyte- G 236 gram-22.7 4 gram-6.74 gram-5.86 gram oral solution 05/03 completed Medicati on ID: [id number] D uration Value: 1 Reason: () Brand Name: GaviLyte -G Send Method: E-Prescr ibed Sub s Allowed: subs OK Medic ationGen ericName : GaviLyte -G Not Available Not Available Not Available Xifaxan 550 mg tablet 12/08 completed Medicati on ID: [id number] D uration Value: 14 Brand Name: Xifaxan Send Method: E-Prescr ibed Sub s Allowed: subs OK Medic ationGen ericName : Xifaxan Not Available Not Available Not Available sodium,po tassium,m ag sulfates 17.5 gram-3.13 gram-1.6 gram oral soln active Not Available Not Available Not Available naproxen sodium 220 mg capsule 2 capsule by mouth 2018 active Medicati on ID: [id number] P marline d By Name: Mateusz Dowell nd Name: naproxen sodium S end Method: E-Prescr ibed Sub s Allowed: subs OK Medic ationGen ericName : naproxen sodium Not Available Not Available Not Available Allergy Relief (fexofena dine) 180 mg tablet 1 tablet by mouth active Not Available Not Available No t Available [facility] 60 mg tablet 1 tablet by mouth 11/25 completed Medicati on ID: [id number] D uration Value: 30 Brand Name: [facility]ha [facility]ergy Send Method: E-Prescr ibed Sub s Allowed: subs OK Medic ationGen ericName : [facility] Not Available Not Available Not Available Eliquis 5 mg tablet TAKE 2 TABLETS BY MOUTH TWO TIMES A DAY FOR 6 DAYS THEN DECREASE TO 1 TABLET TWO TIMES A DAY THEREAFT ER active Not Available Not Available No t Available Eliquis 2.5 mg tablet active Not Available Not Available Not Available Vitals Date Recorded Body height Body mass index (BMI) Body weight Provider Name and Address Organization Details Last Updated DateTime 01/01/2025 167.64 cm 36.8 kg/m2 100729.06 g Miguel Katie [place] [facility] 01/01/2025 14:36:35 Date Recorded Body height Body mass index (BMI) Body weight Provider Name and Address Organization Details Last Updated DateTime 11/25/2024 167.64 cm 36.8 kg/m2 370772.06 g Sienna Ortiz [facility] 11/25/2024 09:17:02 Social History None recorded. Functional Status None recorded. Mental Status None recorded. Family History Nothing Reported. Medical History No medical history recorded. Past Encounters Encounter ID Performer Location Encounter Start Date Encounter Closed Date Diagnosis/Indication Diagnosis SNOMED-CT Code Diagnosis ICD10 Code Diagnosis Note [id number] PALAK BUCHANAN MD [facility] [address] [address] 11/25/2024 09:05:46 11/25/2024 10:17:30 Sensorineural hearing loss of bilateral ears [id number] H90.3 Audiologic al evaluation results: Right ear: {{Normal N ormal through 2 kHz Mild* Moderate M oderately- severe Sev ere Profou nd}} {{hearing sloping to a mild slopi ng to a moderate s loping to moderately severe slo ping to severe slo ping to profound f lat high frequency* low frequency mid frequency cookie bite garcia curve}} {{with sen sorineural hearing loss with* cond uctive hearing loss with mixed hearing loss with}} {{excellen t* good fa ir poor no measurable }} word recognitio n. Left ear: {{Normal N ormal through 2 kHz Mild M oderate Mo derately-s evere* Sev ere Profou nd}} {{hearing sloping to a mild slopi ng to a moderate s loping to moderately severe slo ping to severe slo ping to profound f lat high frequency* low frequency mid frequency cookie bite garcia curve}} {{with sen sorineural hearing loss with* cond uctive hearing loss with mixed hearing loss with}} {{excellen t* good fa ir poor no measurable }} word recognitio n. Tympanomet ry: Right Ear:{{Type A* Type As Type Ad Type C Type C, shallow & rounded Ty pe B Type B with large volume Cou ld not maintain a hermetic seal}} Left Ear:{{Type A* Type As Type Ad Type C Type C, shallow & rounded Ty pe B Type B with large volume Cou ld not maintain a hermetic seal}} Bleeding from nose 25427 6005 R04.0 Nasal mucosa dry 7770506 2 J34.89 [id number] BRENDON ROSSI MD [facility] [address] [address] 01/01/2025 14:23:08 01/01/2025 15:19:01 Infection of tooth 869312553 K04.7 Atypical facial pain 713 46267 G50.1 Anterior epistaxis 65282 4002 R04.0 Health Concerns Section Related Observation LastModified by Organization Detai ls LastModified Time None Recorded Concern Status LastModified by Organization Details LastModified Time None Recorded Advance Directives Directive None Recorded Payers Encounter Date Sequence Insurance Name Policy Number Policy Michelle Covered Member ID Michelle Member ID Guarantor Name 11/25/2024 1 [facility] - DOS ON OR AFTER 2023 - ALF OPTIONS AND ONE CARE (MEDICARE REPLACEMENT/ADV ANTAGE - PPO) Imer Bennett [id number] Imer Bennett 01/01/2025 1 [facility] - DOS ON OR AFTER 2023 - DUAL ELIGIBLE - ALF OPTIONS AND ONE CARE (MEDICARE REPLACEMENT/ADV ANTAGE - HMO) Imer Bennett [id number] Imer Bennett Notes Date Note Type Note Provider Name and Address Organization Details Recorded Time 11/25/2024 text/html 69 year old male presents for evaluation of ears. Reports 3-4 weeks ago he was diagnosed with a dental infection. He now feels he has an infection in the nose and the left ear. He was given a course of clindamycin, which he completed. Currently he reports pain at the upper aspect of both maxillary sinuses, and the left ear. He is unable to tell me whether his hearing seems changed or whether his nasal drainage is purulent. He does note that he gets some blood from the nose when he blows forcefully or uses tissue inside the nose. No alejandro epistaxis. Saw urgent care for this several days ago and was advised to use saline spray, cannot tell me whether he has had bleeding since then. Also reports coughing up blood when he clears the throat forcefully. This has been ongoing for years. He has previously seen disability representative. PALAK BUCHANAN MD [address] [place] [address], [phone], [facility] 11/25/2024 21:43:24 01/01/2025 text/html 69-year-old male presents for reevaluation of facial pain. He recently had root canal about a month ago. He has been having left upper dental pain radiating to the face and ear. He reports he has been on several rounds of antibiotics. He reports that he coughs up blood and notes blood from the extracted tooth site. He also notes blood-tinged mucus from the nose. He is on Eliquis. Has been using saline spray. He was seen by pulmonology for hemoptysis but was started on clindamycin for concern about sinusitis and referred back to our practice for further evaluation. He did not take the clindamycin. Patient is quite frustrated as he has been evaluated by several dentists and reports it is unclear if he has a persistent dental infection or if the infection has resolved. He reports recent CT scan at [facility]. BRENDON ROSSI MD [address] [place] [address],[address], [phone], [facility] 01/01/2025 17:12:27
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
--- OUTSIDE RECORDS SUMMARY | 2025-01-13 11:03 | XMS_ITS | Clinical Summary ---
Author Organization [facility] Address [address] [place] [address] Care Team Providers Care Range Ecologist Name Role Phone Unavailable Primary Care Provider Unavailabl e Social History Tobacco Use Types Packs/Day Years Used Date Smoking Tobacco: Never Assessed Sex and Gender Information Value Date Recorded Sex Assigned at Not on file Legal Sex Male 7:27 AM EDT Gender Identity Not on file Sexual Orientation Not on file Plan of Treatment Health Maintenance Due Date Last Done Comments Hepatitis C Screening 1955 DTaP/Tdap/Td (1 - Tdap) 1973 Pneumococcal 50+ years (1 of 1 - PCV) 2005 Zoster (Shingrix) (1 of 2) 2005 COVID-19 Vaccine ( - 2023-2 5 season) 2024 Influenza (#1) 2024 RSV (1 - 1-dose 75+ series) 2030 Abdominal Aorta Imaging Discontinued HPV Vaccine Aged Out No longer eligi ble based on patient's age to complete this topic Hep A Aged Out No longer eligi ble based on patient's age to complete this topic Hep B Aged Out No longer eligi ble based on patient's age to complete this topic Hib Aged Out No longer eligi ble based on patient's age to complete this topic Meningococcal ACWY Aged Out No longer eligible based on patient's age to complete this topic Zoster (Zostavax) Discontinued
--- OUTSIDE RECORDS SUMMARY | 2025-01-13 11:03 | XMS_ITS | Clinical Summary ---
Author Organization [facility] Address [address] [place] [address] Care Team Providers Care Riveter Pneumatic Name Role Phone Ezequiel Mena DO Primary Care Provider [phone] Allergies Active Allergy Reactions Criticality Noted Date Comments Azithromycin 12/27/2018 Metoprolol 11/27/2017 Penicillins 11/27/2017 Sulfa Antibiotics 11/27/2017 Medications Medication Sig Dispensed Refills Start Date End Date Status rosuvastatin (CRESTOR) tablet 20 mg Take 1 tablet (20 mg total) by mouth daily. 0 Active propranolol (INDERAL LA) 60 MG 24 hr capsule Take 1 capsule (60 mg total) by mouth 2 (two) times a day. 0 Active Multiple Vitamin (MULTI VITAMIN DAILY PO) Take by mouth. 0 Active QUEtiapine (SEROQUEL) 25 MG tabletIndications:5 0 am and 100 in pm Take 6 tablets (150 mg total) by mouth. 50 mg afternoon, 100 mg nightime 0 Active Loratadine (CLARITIN) 10 MG CAPS Take by mouth. 0 Active divalproex (DEPAKOTE) 500 MG EC tablet Take 1 tablet (500 mg total) by mouth. 500mg in am/1000mg in pm 0 Active alfuzosin (UROXATRAL) 10 MG 24 hr tablet Take 1 tablet (10 mg total) by mouth daily. 0 Active lisinopril (PRINIVIL,ZESTRIL) tablet 10 mg Take 4 tablets (40 mg total) by mouth daily. 0 Active Glucosamine-Chondro itin (GLUCOSAMINE CHONDR COMPLEX PO) Take by mouth. 0 Ac tive clindamycin (CLEOCIN) 150 MG capsule Take 1 capsule (150 mg total) by mouth continuous prn. 0 Active apixaban (ELIQUIS) 2.5 MG TABS tablet Take 1 tablet (2.5 mg total) by mouth every 12 (twelve) hours. 60 tablet 9 07/09/2024 Active Active Problems No known active problems Family History Medical History Relation Name Comments Cancer Father Relation Name Status Comments Father Social History Tobacco Use Types Packs/Day Years Used Date Smoking Tobacco: Never Smokeless Tobacco: Never Tobacco Cessation:Counseling Given: Not Answered Alcohol Use Standard Drinks/Week Comments Not Currently 0 (1 standard drink = 0.6 oz pur e alcohol) Sex and Gender Information Value Date Recorded Sex Assigned at Male 05/01/2024 12:27 PM EDT Gender Identity Not on file Sexual Orientation Not on file Job Start Date Occupation Industry Not on file Not on file Not on file Last Filed Vital Signs Vital Sign Reading Time Taken Comments Blood Pressure 141/75 07/09/2024 10:01 AM EDT Pulse 70 07/09/2024 10:01 AM EDT Temperature 36.5 ??C (97.7 ??F) 07/09/2024 1 0:01 AM EDT Respiratory Rate - - Oxygen Saturation 99% 07/09/2024 10: 01 AM EDT Inhaled Oxygen Concentration - - Weight 103.2 kg (227 lb 9.6 oz) 024 10:01 AM EDT Height 167.6 cm (5' 6 ) 05/20/2024 1:32 PM EDT Body Mass Index 36.74 05/20/2024 1:32 PM EDT Plan of Treatment Health Maintenance Due Date Last Done Comments Hepatitis C Screening 1955 Depression Screening 1967 BMI Counseling 1973 Preventative Health Evaluation 1973 DTap / Tdap / Td (1 - Tdap) 1974 Colon Cancer Screening (Colonoscopy) 2000 Shingrix-Zoster Vaccine (1 o f 2) 2005 Fall Risk Assessment 2020 Pneumococcal Vaccine (2 of 2 - PCV) 2020 02/06/2019, 05/07/2009 COVID-19 Vaccine (3 - 2023-2 5 season) 2024 02/15/2021, 01/25/2021 Influenza Vaccine (#1) 2024 08/06/2018 RSV Adult > 60+ Yrs or (1 - 1-dose 75+ series) 2030 Hepatitis B Vaccines Aged Out No long er eligible based on patient's age to complete this topic RSV Ped < 20 months Aged Out No longe r eligible based on patient's age to complete this topic Care Teams Riveter Pneumatic Relationship Specialty Start Date End Date Ezequiel Mena DO [address] [place] [address] [address] [place] [address] PCP - General Internal Medicine 05/01/24
--- OUTSIDE RECORDS SUMMARY | 2025-01-13 11:03 | XMS_ITS | Encounter Summary ---
Author Organization [facility] Address [address] [place] [address] Care Team Providers Care High School Academic Coach Name Role Phone Ezequiel Mena DO Primary Care Provider [phone] Encounter Details Date Type Department Care Team ([facility] st Contact Info) Description 07/09/2024 9:29 AM EDT Hospital Encounter TH HISTORIC ENCOUNTERS [facility]AST[facility] CONVERSION ONLY Zia Dunn MD [address] [place] [id number] Social History Tobacco Use Types Packs/Day Years [...] is a 68 y.o. male. HPI: 68-year-old English speaking man, who initially had pulmonary embolism [...] thrombosis (HCC) RECURRENT DEEP VEIN THROMBOSIS 68-year-old English speaking man, who has multiple medical issues, [...] documented in this encounter Plan of Treatment Not on file documented as of this encounter Procedures Procedure Name Priority Date/Time Associated Diagnosis Comments ..MISCELLANEOUS REFERENCE LAB TEST 07/09/2024 ..MISCELLANEOUS REFERENCE LAB TEST 07/09/2024 ..MISCELLANEOUS REFERENCE LAB TEST 07/09/2024 documented in this encounter Results * Miscellaneous reference lab test (07/09/2024) us Provider Onbase MD LAB BLOOD ORDERABLES Final Re sult * Miscellaneous reference lab test (07/09/2024) us Provider Onbase MD LAB BLOOD ORDERABLES Final Re sult * Miscellaneous reference lab test (07/09/2024) us Provider Onbase MD LAB BLOOD ORDERABLES Final Re sult documented in this encounter Visit Diagnoses Not on filedocumented in this encounter Care Teams High School Academic Coach Relationship Specialty Start Date End Date Ezequiel Mena DO [address] [place] [id number] PCP - General Internal Medicine 12/27/20 documented as of this encounter
== END 2025-01-13 10:35 | disposition home or self-care (01) ==
LOC: HO.HKAS 09:41
PROVIDERS: PCP Internal Medicine; Visit Provider Internal Medicine Nephrology
DX: R10.9 Unspecified abdominal pain (principal); I10 Essential (primary) hypertension
CPT/HCPCS: 99214

== ENCOUNTER → 2025-01-13 09:41 | Outpatient (BNVA) | payer OTHER, SELFPAY | PROVIDERS: PCP Internal Medicine; Visit Provider Internal Medicine Nephrology | DX: R10.9 Unspecified abdominal pain (principal); I10 Essential (primary) hypertension | CPT/HCPCS: 99212 ==

== ENCOUNTER 2025-01-21 09:17 | Outpatient (REF) | payer OTHER, SELFPAY ==
--- NOTE | ~2025-01-21 | US_ITS ---
EXAMINATION: US KIDNEY BILATERAL HISTORY: R10.9 - Unspecified abdominal pain TECHNIQUE: Real-time grayscale ultrasound imaging of the kidneys was performed and images were reviewed. COMPARISON: There are no prior studies for comparison. FINDINGS: Right kidney: The right kidney measures 12.8 x 6.7 x 6.3 cm. Renal parenchymal echotexture and thickness are normal. There are no masses. There is no hydronephrosis or renal calculi. Left Kidney: The left kidney measures 13.4 x 6.7 x 6.6 cm. Renal parenchymal echotexture and thickness are normal. There is a 3.9 x 3.1 x 3.4 cm cyst at the upper pole. There is no hydronephrosis or renal calculi. US/US renal BI IMPRESSION: 3.9 x 3.1 x 3.4 cm left upper pole renal cyst. Otherwise unremarkable renal ultrasound. Electronically signed by: Arnoldo Mcneill MD 01/21/2025 09:46 AM EDT
--- OUTSIDE RECORDS SUMMARY | 2025-01-21 10:08 | XMS_ITS | Clinical Summary ---
Author Organization [facility] Address [address] [place] [address] Care Team Providers Care Dielectric Machine Operator Name Role Phone Unavailable Primary Care Provider [...]
--- OUTSIDE RECORDS SUMMARY | 2025-01-21 10:08 | XMS_ITS | Clinical Summary ---
Author Organization [facility] Address [address] [id number] Care Team Providers Care Clinical Specialist Vascular Name Role Phone Ezequiel Mena DO Primary Care Provider [phone] Allergies Active Allergy Reactions Criticality Noted Date [...] age to complete this topic Care Teams Clinical Specialist Vascular Relationship Specialty Start Date End Date Ezequiel Mena DO [address] [place] [address] [address] [place] [address] PCP - General Internal Medicine 05/01/24
--- OUTSIDE RECORDS SUMMARY | 2025-01-21 10:08 | XMS_ITS | Continuity of Care Document ---
Author Organization [facility] Address [address] [place] [id number] Care Team Providers Care Tile Mason Name Role Phone MIRIAM BUCHANAN Primary Care Provider HIM [facility] OTHER Assessment Encounter Date Assessment Date Assessment LastModified by Organization Details LastModified Time 01/19/2025 01/19/2025 As noted, we were called to see this patient regarding concerns of dental pain. Evaluation in the field was performed by my textile cutting machine operator colleague, as noted above, I provided real-time direction and supervision for this visit. The evaluation revealed a 69 y/o male with hx of dental problems. Pt has hx of dental infections and gingivitis. No fever or SOB. Pt says he has been treated by a dentist in the past with multiple rounds of clindamycin. Pt declined Clindamycin. On exam pt has redness and swelling to the Gingiva Impression: acute gingivitis Plan: 1) Chlorhexadine mouth wash sent to the pharmacy 2) f/u with dentist Primary care, consider make sure he sees his dentist Disposition: stay at home We discussed the diagnostic uncertainty of home visits and the risk associated with this. In this case, the patient and I felt this to be an acceptable and reasonable amount of risk given the benefit of avoiding an ED visit. We discussed the need to seek care urgently/emergen tly in the setting of any new or worsening serious symptoms, particularly fever, worsening pain [id number] Not available 01/19/2025 18:41:57 Plan of Treatment Reminders Order Date Submit Date Provider Last Modified By Organization Details Last Modified Time Details Appointments None recorded. Lab None recorded. Referral None recorded. Procedures None recorded. Surgeries None recorded. Imaging None recorded. Medication Orders chlorhexidi ne gluconate 0.12 % mouthwash 2024 025 [facility], [address] [place] [address], [address], [place], [address], 5 18:25:09 Patient TargetsNo targets recorded. Patient InstructionsNo instructions recorded. Reason for Referral None Reported. Medical Equipment None Reported. Allergies Allergen ID Allergen Name Allergen Category Reaction Reaction Severity Criticality Documentation Date Start Date Code Code System Note Provider Name and Address Organization Details Recorded Time 7731 Product containin g penicilli n (product) medicatio n Not available Not available Not available 08/05/2024 91952 8001 SNOMED Not Available [facility] - production 4 03:39:25 7732 metoprolo l Not available Not available Not available Not available 08/05/2024 6918 RxNorm Not Available [facility] - production 4 03:39:25 Medications Name Sig Start Date Stop Date Status Note LastModified by Organization Details LastModified Time neomycin-polym yxin-hydrocort 3.5 mg/mL-10,000 unit/mL-1 % ear solution active Not Available Not Available Not Available trazodone 50 mg tablet active Not Available Not Available No t Available sucralfate 100 mg/mL oral suspension active Not Available Not Available N ot Available prednisone 20 mg tablet active Not Available Not Available No t Available clindamycin HCl 150 mg capsule active Not Available Not Available Not Available propranolol 60 mg tablet active Not Available Not Available No t Available amlodipine 5 mg tablet active Not Available Not Available No t Available doxycycline monohydrate 100 mg tablet active Not Available Not Availabl e Not Available triamcinolone acetonide 0.1 % topical cream active Not Available Not Available Not Available oxycodone-acet aminophen 5 mg-325 mg tablet active Not Available Not Available Not Available cephalexin 500 mg capsule active Not Available Not Available N ot Available tacrolimus 0.1 % topical ointment active Not Available Not Available Not Available prednisone 50 mg tablet TAKE 1 TABLET BY MOUTH EVERY DAY FOR 5 DAYS active Not Available Not Available No t Available divalproex ER 500 mg tablet,extende d release 24 hr active Not Available Not Available Not Available lorazepam 1 mg tablet active Not Available Not Available Not Available albuterol sulfate HFA 90 mcg/actuation aerosol inhaler INHALE 2 PUFFS BY MOUTH EVERY 4 TO 6 HOURS NEEDED FOR DYSPNEA active Not Available Not Available No t Available lisinopril 40 mg tablet active Not Available Not Available No t Available fluticasone propionate 50 mcg/actuation nasal spray,suspensi on active Not Available Not Available Not Available clotrimazole 1 % topical cream APPLY TWO TIMES A DAY FOR 14 DAYS active Not Available Not Available No t Available neomycin 3.5 mg/g-polymyxin B 10,000 unit/g-dexamet h 0.1 % eye oint APPLY TO THE RIGHT EYE TWICE DAILY FOR 7 DAYS active Not Available Not Available No t Available Allergy Relief (loratadine) 10 mg tablet active Not Available Not Available Not Available ciprofloxacin 0.3 %-dexamethason e 0.1 % ear drops,suspensi on active Not Available Not Available Not Available rosuvastatin 20 mg tablet active Not Available Not Available Not Available alfuzosin ER 10 mg tablet,extende d release 24 hr active Not Available Not Available Not Available chlorhexidine gluconate 0.12 % mouthwash Place 15 mL twice a day by mucous membrane route. 2024 active Not Available Not Available Not Avai lable fluocinolone acetonide oil 0.01 % ear drops active Not Available Not Available Not Available quetiapine 50 mg tablet active Not Available Not Available No t Available Vitals Date Recorded Respiratory rate Body temperature Oxygen saturation Oxygen saturation in Arterial blood by Pulse oximetry Heart rate Systolic blood pressure Diastolic blood pressure Provider Name and Address Organization Details Last Updated DateTime 16 /min 98.6 [degF] 98 % 98 % 72 /min 163 mm[Hg] 88 mm[Hg] Not Available [facility] 18:10:56 Social History None recorded. Functional Status None recorded. Mental Status None recorded. Family History Nothing Reported. Medical History No medical history recorded. Past Encounters Encounter ID Performer Location Encounter Start Date Encounter Closed Date Diagnosis/Indication Diagnosis SNOMED-CT Code Diagnosis ICD10 Code Diagnosis Note [id number] CHRISTINE OLMOS MD [facility] [address] [place] [phone] 01/19/2025 18:10:52 01/19/2025 19:02:13 Infection of tooth 472266692 K04.7 Acute gingivitis 5603085 5 K05.00 Health Concerns Section Related Observation LastModified by Organization Detai ls LastModified Time None Recorded Concern Status LastModified by Organization Details LastModified Time None Recorded Payers Encounter Date Sequence Insurance Name Policy Number Policy Michelle Covered Member ID Michelle Member ID Guarantor Name 01/19/2025 1 [facility] - DOS ON OR AFTER 2023 - DUAL ELIGIBLE - USP OPTIONS AND ONE CARE (MEDICARE REPLACEMENT/ADV ANTAGE - HMO) Imer Bennett [id number] Imer Bennett Notes Date Note Type Note Provider Name and Address Organization Details Recorded Time 01/19/2025 text/html [facility] Nurse Triage Notes (Cristhian Guerra): Reason For Request: Patient feels confused, and just in general feels bad every day, wants checked out. Mouth and maybe teeth pain. Denies: Sudden onset of dental pain, unable to manage own secretions Nosebleed lasting longer than one hour; unable to stop bleeding Throat swelling/difficult swallowing Dental pain and fever, able to maintain secretions Sinus infection Conjunctivitis External Ear concerns Chief Complaints: Dental Complaint PMH: Hypertension, COPD/Asthma PMH Reviewed at 01/19/2025:41 Allergies Reviewed at 01/19/2025:41 Comments: 69 y.o male with dental pain Pt reports feeling unwell - To many problems and I don't feel well. Mouth and teeth pain - Upper left/right teeth pain - Infection. No dental provider in place - Facial swelling - Denies fever - Recent blood work shows an infection in number 11. Seen by the dentist 2 months ago. Denies taking over the counter medication. Wellness check requested. Vague responses - even with redirection I provided information on the mobile health provider response time and advised the patient and/or caregiver to monitor reported signs and symptoms. I discussed the warning signs of when to seek emergency care. ................... ................... ................... ................... ................... ................... ................... ........ Car Whacker Note From Meng Wilkes: This 69-year-old male with a history including but not limited to HTN, COPD, DVT requested a visit today to address ongoing dental issues. Patient states is been to a variety of different dentists over the past year and believes they have removed the wrong teeth and caused him significant amount of stress. Patient states he last had upper left tooth extracted six or seven weeks ago and believes he now has an infection. Patient denies any severe pain, fevers, nausea, vomiting, diarrhea. Patient presents awake and alert, very anxious, in no acute distress and speaking full sentences. His vital signs are reasonably stable and he is afebrile. Nonfocal neurological exam. Normal gait. Pictures of his mouth and gums are uploaded, top gums appear red and swollen. Tenderness to palpation on left maxilla. We discussed the diagnostic uncertainty of home visits and the risk associated with this. In this case, the patient and I felt this to be an acceptable and reasonable amount of risk given the benefit of avoiding an ED visit. I advised him that we can prescribe clindamycin and chlorhexidine mouthwash, patient states he is tried clindamycin many times and it never works and he already has chlorhexidine mouthwash. I provided education that this is the treatment for his symptoms but he states his stomach cannot handle more clindamycin. I advised him that we are sending more chlorhexidine mouth rinse to his pharmacy. I recommend he follows up with a dentist and present to the emergency department for any new or worsening severe symptoms such as severe pain, high fever, altered mental status. The patient was given the opportunity to ask questions. ................... ................... ................... ................... ................... ................... ................... ........ [facility] [place] Consulted: Christine Olmos ................... ................... ................... ................... ................... ................... ................... ........ Disposition: Fulfilled CHRISTINE OLMOS MD [address] [facility],[address], [place], [phone], RO - LAMAR DAVIS 01/19/2025 18:43:05
--- OUTSIDE RECORDS SUMMARY | 2025-01-21 10:08 | XMS_ITS | Clinical Summary ---
Author Organization [facility] [address] [facility] Address [address] [place] [address] Phone Care Team Providers Care Autocutter Name Role Phone Ezequiel Mena DO Primary Care Provider [phone] Allergies Active Allergy Reactions Criticality Noted Date Comments Albuterol 12/23/2020 Azithromycin 12/27/2018 Cefuroxime 12/23/2020 Levofloxacin Other 12/13/2010 Metoprolol 11/27/2017 Penicillins 03/26/2015 Prednisone 12/23/2020 Rifaximin 12/23/2020 Risperidone 01/01/2019 Sulfa (Sulfonamide Antibiotics) 11/09 Triazolam Itching 12/13/2010 Medications glucosamine-cho ndroitin 500-400 mg capsule Take by mouth 1 (one) time each day. Active lisinopriL (PRINIVIL,ZESTR IL) 10 mg tablet Take 1 tablet (10 [...] by mouth 1 (one) time each day. 5 Active nizatidine (AXID) 150 mg capsule Take 1 capsule (150 mg total) by mouth 2 (two) times a day. 2 Active rosuvastatin (CRESTOR) 20 mg tablet Take 1 tablet (20 mg total) by mouth 1 (one) time each day. 4 Active sucralfate (CARAFATE) 100 mg/mL suspension Take 10 mL (1 g total) by mouth 4 (four) times a day. 3 Active traZODone (DESYREL) 50 mg tablet Take 1 tablet (50 mg total) by mouth at bedtime. 5 Active zinc oxide (BALMEX) 11.3 % cream cream Apply topically 2 (two) times a day. 8 Active fexofenadine (HAKEEM) 180 mg tablet Active QUEtiapine (SEROquel) 100 mg tablet Active QUEtiapine (SEROquel) 50 mg tablet 4 Active apixaban (ELIQUIS) 2.5 mg tablet Take 1 tablet (2.5 mg total) by mouth. 4 Active Active Problems Problem Noted Date Diagnosed Date [...] sleep apnea 12/25/2013 Overview (12/17/2023): Comments: dx'ed 2008 Bipolar 1 disorder (CMS/HCC V24, CMS/HCC V28) Hemorrhoids 12/11/2013 Microscopic hematuria 12/11/2013 Pulmonary nodule [...] Description 12/22/2024 11:15 AM EDT Office Visit [facility] Hematology Oncology [address] [place] [phone] Zia Dunn MD Recurrent deep venous thrombosis (CMS/HCC V24, CMS/HCC V28) (Primary Dx) 12/16/2024 Telephone [facility] Hematology Oncology [address] [place] [phone] Zia Dunn MD 12/01/2024 3:30 PM EST Office Visit Endocrinology - [address] [phone] Jyoti Iqbal MD Thyroid nodule (Primary Dx) 11/26/2024 4:39 PM EST - 11/26/2024 11:59 PM EST Hospital Encounter Radiology Department - [address] [phone] Thyroid nodule Discharge Disposition: Home or Self Care 11/26/2024 9:00 AM EST Office Visit Endocrinology - [address] [phone] Jyoti Iqbal MD Thyroid nodule (Primary Dx) 10/28/2024 Telephone [facility] Hematology Oncology [address] [place] [phone] Zia Dunn MD from Last 3 Months [...] initis Anxiety 03/26/2015 DX:Anxiety Bipolar 1 disorder (CMS/HCC V24, CMS/HCC V28) 12/11/2013 DX:Bipolar 1 disorder ([facility]) BPH without obstruction/lowe r urinary tract symptoms [...] DX:Obstr uctive sleep apnea; COMMENT: Comments: dx'ed 2008 Patent foramen ovale 12/13/2010 DX:Patent f oramen [...] Comments Zoster Vaccines (1 of 2) 2005 RSV Immunization Adult Patients (1 - Risk 60-74 years 1-dose series) 2015 Pneumococcal Vaccine: 50+ Years (2 of 2 - PCV) 02/07/2020 02/06/2019, 05/07/2009 Depression Screening 09/16/2022 Falls Risk Assessment 09/16/2022 Hepatitis C Screening 09/16/2022 Medicare Annual Wellness Visit 09/16/2022 Social Influencers of Health Screening 09/16/2022 COVID-19 Vaccine ( season) 2024 01/25/2022, 09/14/2021, 02/15/2021, Additional history exists Hypertension/CHF/CAD Annual BMP Blood Test 01/13/2026 01/13/2025, 01/20/2022, 01/16/2022 Cholesterol Screening (Lipid Panel) 07/27/2028 07/27/2023 Colorectal Cancer Screening: Colonoscopy 06/01/2030 06/01/2020 DTaP,Tdap,and Td Vaccines (3 - Td or [...] Procedure Name Priority Date/Time Associated Diagnosis Comments URINALYSIS WITH REFLEX MICROSCOPIC Routine 01/13/2025 10:57 AM EDT Stomach discomfort Essential hypertension, benign CALCIUM Routine 01/13/2025 10:57 AM EDT Stomach discomfort Essential hypertension, benign ELECTROLYTE PANEL Routine 01/13/2025 10: 57 AM EDT Stomach discomfort Essential hypertension, benign BUN Routine 01/13/2025 10:57 AM EDT Stomach discomfort Essential hypertension, benign CREATININE, SERUM Routine 01/13/2025 10: 57 AM EDT Stomach discomfort Essential hypertension, benign URINALYSIS WITH REFLEX MICROSCOPIC Routine 01/13/2025 10:57 AM EDT Stomach discomfort Essential hypertension, benign ANTITHROMBIN III ANTIGEN Routine 12/23/2024 1:10 PM EDT Numbness PROTEIN, TOTAL Routine 12/23/2024 1:10 PM EDT Numbness VITAMIN B12 Routine 12/23/2024 1:10 PM EDT Numbness CBC WITH AUTO DIFFERENTIAL Routine 12/22/2024 11:43 AM EDT Recurrent deep venous thrombosis (CMS/HCC V24, CMS/HCC V28) LACTATE DEHYDROGENASE Routine 12/22/2024 11:43 AM EDT Recurrent deep venous thrombosis (CMS/HCC V24, CMS/HCC V28) CBC AND DIFFERENTIAL Routine 12/22/2024 11:43 AM EDT Recurrent deep venous thrombosis (CMS/HCC V24, CMS/HCC V28) US HEAD NECK SOFT TISSUE Routine 11/26/2024 4:57 PM EST Thyroid nodule from Last 3 Months Results * Urinalysis with reflex microscopic (01/13/2025 10:57 AM EDT) Specific [place] Urine 1.004 1.003 - 1.030 LAB URINALYSIS - AUTOMATED METHOD 01/13/2025 1:01 PM [facility] pH, Urine 8.0 5.0 - 8.0 pH LAB URINALYSIS - AUTOMATED METHOD 01/13/2025 1:01 PM [facility] Leukocytes, Urine Negative Negative LAB URINALYSIS - AUTOMATED METHOD 01/13/2025 1:01 PM [facility] Nitrite, Urine Negative Negative LAB URINALYSIS - AUTOMATED METHOD 01/13/2025 1:01 PM [facility] Protein, Urine Negative <=Trace mg/dL LAB URINALYSIS - AUTOMATED METHOD 01/13/2025 1:01 PM EDT [facility] Glucose, Urine Negative Negative mg/dL LAB URINALYSIS - AUTOMATED METHOD 01/13/2025 1:01 PM EDT [facility] Ketones, Urine Negative Negative mg/dL LAB URINALYSIS - AUTOMATED METHOD 01/13/2025 1:01 PM EDT [facility] Urobilinogen, Urine 0.2 0.2 - 1.0 mg/dL LAB URINALYSIS - AUTOMATED METHOD 01/13/2025 1:01 PM EDT [facility] Bilirubin, Urine Negative Negative LAB URINALYSIS - AUTOMATED METHOD 01/13/2025 1:01 PM EDT [facility] Blood, Urine Negative Negative LAB URINALYSIS - AUTOMATED METHOD 01/13/2025 1:01 PM EDT [facility] Urine Urine specimen obtained by clean catch procedure / Unknown Non-blood Collection / Unknown 01/13/2025 10:57 AM EDT 01/13/2025 12:44 PM EDT us Mook Paris MD LAB URINE ORDERABLES Final Resul t [facility] [address] [place] [address], * (ABNORMAL) Creatinine (01/13/2025 10:57 AM EDT) Creatinine 0.50(L) 0.70 - 1.30 mg/dL LAB CHEMISTRY METHOD 01/13/2025 1:53 PM EDT [facility] eGFR 110 >=60 mL/min/1. 73m2 LAB CHEMISTRY METHOD 01/13/2025 1:53 PM EDT [facility] Comment:Calculation based on the??Chronic Kidney Disease Epidemiology Collaboration (CKD-EPI) equation refit??without adjustment for race. Blood Venous blood specimen / Unknown Venipuncture / Unknown 01/13/2025 10:57 AM EDT 01/13/2025 12:42 PM EDT us Mook Paris MD LAB BLOOD ORDERABLES Final Resul t Performing Organization Address [facility] Co de Phone Number [facility] [address] [place] [address], [place] [phone] * BUN (01/13/2025 10:57 AM EDT) BUN 9 5 - 25 mg/dL LAB CHEMISTRY METHOD 01/13/2025 1:53 PM EDT [facility] Blood Venous blood specimen / Unknown Venipuncture / Unknown 01/13/2025 10:57 AM EDT 01/13/2025 12:42 PM EDT us Mook Paris MD LAB BLOOD ORDERABLES Final Resul t Performing Organization Address [facility] de Phone Number [facility] [address] [place] [address], [place] [phone] * Calcium (01/13/2025 10:57 AM EDT) Calcium 9.7 8.5 - 10.5 mg/dL LAB CHEMISTRY METHOD 01/13/2025 1:53 PM EDT [facility] Blood Venous blood specimen / Unknown Venipuncture / Unknown 01/13/2025 10:57 AM EDT 01/13/2025 12:42 PM EDT us Mook Paris MD LAB BLOOD ORDERABLES Final Resul t Performing Organization Address City/[facility]/ZIP Co de Phone Number [facility] [address] [place] [address], [place] [phone] * Electrolyte panel (01/13/2025 10:57 AM EDT) Sodium 134 133 - 145 mmol/L LAB CHEMISTRY METHOD 01/13/2025 1:53 PM EDT [facility] Potassium 4.4 3.5 - 5.5 mmol/L LAB CHEMISTRY METHOD 01/13/2025 1:53 PM EDT [facility] Chloride 100 96 - 110 mmol/L LAB CHEMISTRY METHOD 01/13/2025 1:53 PM EDT [facility] CO2 29 21 - 32 mmol/L LAB CHEMISTRY METHOD 01/13/2025 1:53 PM EDT [facility] Anion Gap 5 3 - 11 LAB CHEMISTRY METHOD 01/13/2025 1:53 PM EDT [facility] Blood Venous blood specimen / Unknown Venipuncture / Unknown 01/13/2025 10:57 AM EDT 01/13/2025 12:42 PM EDT Mook Paris MD LAB BLOOD ORDERABLES Final Resul t [facility] [address] [place] [address], * Antithrombin III antigen (12/23/2024 1:10 PM EDT) [facility] Antithrombin III Antigen 90 80 - 120 % 12/26/2024 9:01 AM EDT [facility] Comment: Test performed at [facility], [address] , [place], [place] ??[address] ? [phone] Yenny Mariscal MD, PhD - Band Sewer Blood Venous blood specimen / Unknown Venipuncture / Unknown 12/23/2024 1:10 PM EDT 12/23/2024 2:28 PM EDT Gabriel WATERMAN LAB BLOOD ORDERABLES Final Result [facility] [address] [place] [address] * Protein, total (12/23/2024 1:10 PM EDT) [facility] Total Protein 6.8 6.0 - 8.0 g/dL LAB CHEMISTRY METHOD 12/23/2024 3:54 PM EDT [facility] Blood Venous blood specimen / Unknown Venipuncture / Unknown 12/23/2024 1:10 PM EDT 12/23/2024 2:28 PM EDT Gabriel WATERMAN LAB BLOOD ORDERABLES Final Result [facility] [address] [place] [address], [place] [phone] * Vitamin B12 (12/23/2024 1:10 PM EDT) [facility] Vitamin B-12 392 250 - 900 pcg/mL LAB CHEMISTRY METHOD 12/23/2024 3:54 PM EDT [facility] Blood Venous blood specimen / Unknown Venipuncture / Unknown 12/23/2024 1:10 PM EDT 12/23/2024 2:28 PM EDT Gabriel WATERMAN LAB BLOOD ORDERABLES Final Result [facility] [address] [place] [address], [place] [phone] * (ABNORMAL) CBC auto differential (12/22/2024 11:43 AM EDT) [facility] WBC 8.0 4.8 - 10.8 [facility] HEMET[facility]Y METHOD 12/22/2024 1:49 PM EDT [facility] RBC 4.70 4.50 - 5.50 [facility] HEMETOLOGY METHOD 12/22/2024 1:49 PM EDT [facility] Hemoglobin 15.0 13.5 - 17.5 g/dL LAB HEMETOLOGY METHOD 12/22/2024 1:49 PM EDT [facility] Hematocrit 44.7 42.0 - 54.0 % LAB HEMETOLOGY METHOD 12/22/2024 1:49 PM EDT [facility] MCV 94.3 79.0 - 98.0 FL LAB HEMETOLOGY METHOD 12/22/2024 1:49 PM EDT [facility] MCH 31.6 27.0 - 32.0 pcg LAB HEMETOLOGY METHOD 12/22/2024 1:49 PM EDT [facility] MCHC 33.6 32.0 - 37.0 g/dL LAB HEMETOLOGY METHOD 12/22/2024 1:[facility] RDW 13.0 11.0 - 15.0 % LAB HEMETOLOGY METHOD 12/22/2024 1:49 PM EDT [facility] Platelets 177 130 - 400 K/mcL LAB HEMETOLOGY METHOD 12/22/2024 1:49 [facility] MPV 12.6(H) 7.0 - 11.0 FL LAB HEMETOLOGY METHOD 12/22/2024 1:49 [facility] NRBC 0.0 <1.0 % LAB HEMETOLOGY METHOD 12/22/2024 1:49 PM EDT [facility] NRBC Absolute 0.00 <0.10 K/mcL LAB HEMETOLOGY METHOD 12/22/2024 1:49 PM EDT [facility] Neutrophils Relative 63.1 % LAB HEMETOLOGY METHOD 12/22/2024 1:49 PM EDT [facility] Lymphocytes Relative 25.1 % LAB HEMETOLOGY METHOD 12/22/2024 1:49 PM EDT [facility] Monocytes Relative 8.9 % LAB HEMETOLOGY METHOD 12/22/2024 1:49 PM EDT [facility] Eosinophils Relative 1.8 % LAB HEMETOLOGY METHOD 12/22/2024 1:49 PM EDT [facility] Basophils Relative 0.6 % LAB HEMETOLOGY METHOD 12/22/2024 1:49 PM EDT [facility] Immature Granulocytes Relative 0.5 % LAB HEMETOLOGY METHOD 12/22/2024 1:49 PM EDT [facility] Neutrophils Absolute 5.03 1.50 - 7.00 K/mcL LAB HEMETOLOGY METHOD 12/22/2024 1:49 PM EDT [facility] Lymphocytes Absolute 2.00 1.00 - 5.00 K/mcL LAB HEMETOLOGY METHOD 12/22/2024 1:49 PM EDT [facility] Monocytes Absolute 0.71 0.20 - 1.00 K/mcL LAB HEMETOLOGY METHOD 12/22/2024 1:49 PM EDT [facility] Eosinophils Absolute 0.14 0.00 - 0.50 K/mcL LAB HEMETOLOGY METHOD 12/22/2024 1:49 PM EDT [facility] Basophils Absolute 0.05 0.00 - 0.20 K/mcL LAB HEMETOLOGY METHOD 12/22/2024 1:49 PM EDT [facility] Immature Granulocytes Absolute 0.04(H) 0.00 - 0.03 K/mcL LAB HEMETOLOGY METHOD 12/22/2024 1:49 PM EDT [facility] Blood Venous blood specimen / Unknown Venipuncture / Unknown 12/22/2024 11:43 AM EDT 12/22/2024 1:36 PM EDT us Zia Dunn MD LAB BLOOD ORDERABLES Final R esult [facility] [address] [place] [address], [place] [phone] * Lactate dehydrogenase (12/22/2024 11:43 AM EDT) LDH 132 120 - 246 unit/L LAB CHEMISTRY METHOD 12/22/2024 3:11 PM EDT [facility] Blood Venous blood specimen / Unknown Venipuncture / Unknown 12/22/2024 11:43 AM EDT 12/22/2024 1:37 PM EDT us Zia Dunn MD LAB BLOOD ORDERABLES Final R esult [facility] ([facility]) [facility] [address] [place] [address], [place] [phone] * US Head Neck Soft Tissue (11/26/2024 [...] Signed Date: 11/26/2024 22:29 ET Workstation ID: [id number] Transcribed By: Self Edit Transcribed Date: 11/26/2024 [...] Signed Date: 11/26/2024 22:29 ET Workstation ID: [id number] Transcribed By: Self Edit Transcribed Date: 11/26/2024 22:27 ET us Jyoti Iqbal MD IMG US PROCEDURES Final Result from Last 3 Months Insurance [facility] [employer] [employer]IC[employer] Member Subscriber Plan / Payer (Ef fective 2021-Present) Name:Imer Bennett Relation to Subscriber:Self Name:Imer Bennett Payer ID:[id number] Group ID:[id number] Type:Not on file Address: [place] [address] [address] [id number] Care Teams Autocutter Relationship Specialty Start Date End Date Ezequiel Mena DO [address] [place] [phone] PCP - General Internal Medicine 12/27/20
--- OUTSIDE RECORDS SUMMARY | 2025-01-21 10:08 | XMS_ITS | Data Portability ---
Author Organization [facility], Ama Outpatient Address [address] [place] [address] Care Team Providers Care Management Professor Name Role Phone MIRIAM BUCHANAN Primary Care Provider Assessment Encounter Date Assessment Date Assessment LastModified by Organization Details LastModified Time 03/31/2022 03/31/2022 66-year-old male with osteoarthritis of the left knee and ankle. - Xray Knee 3 views demonstrate severe tibofemoral and patellofemoral disease with joint space narrowing and subchondral sclerosis consistent with osteoarthritis. There are several osteophytes throughout the joint. - X-ray imaging of the left ankle was obtained and reviewed today in clinic. There is mild degenerative disease throughout the foot and ankle without any evidence of acute fracture or dislocation. The ankle mortise is well aligned and the joint space is largely preserved. - The patient has requested a knee aspiration as this has helped him in the past. This was performed at today's visit without complication. His synovial fluid was sent for lab work. -He will follow-up with Dr. Alfaro for his ankle. Total visit time was 44 minutes in length including llzv-mh-axjq and wbe-perp-sd-face time. Not available 03/31/2022 13:06:26 03/13/2023 03/13/2023 Impression: 66-year-old male with osteoarthritis of the left knee and bilateral pes planus with left ankle pain. He has elected to proceed with knee aspiration but does not want to proceed with corticosteroid as he was told previously never to get a corticosteroid injection as it could elevate his blood sugar. He is not diabetic and does not have glycemic control issues, however, has elected to continue with this plan. As far as his ankle is concerned, he has pes planus bilaterally which is certainly contributing to his ankle pain. I would recommend custom insoles. He would like to proceed with a corticosteroid injection of his ankle at today's visit. - Xray Knee 3 views demonstrate severe tibofemoral and patellofemoral disease with joint space narrowing and subchondral sclerosis consistent with osteoarthritis. There are several osteophytes throughout the joint. - X-ray imaging of the left ankle was obtained and reviewed today in clinic. There is mild degenerative disease throughout the foot and ankle without any evidence of acute fracture or dislocation. The ankle mortise is well aligned and the joint space is largely preserved. Procedure: 1) Ultrasound-guided left knee aspiration. 2) Ultrasound guided left tibiotalar joint injection Plan: - Follow up with me as needed for his knee and ankle - Appointment scheduled with Marcella for custom orthotics. Pronation control shoes recommended to him. Total visit time was 45 minutes in length including thgt-fw-ayhf and frs-tnqc-up-face time. Not available 03/13/2023 16:08:39 Plan of Treatment Reminders Order Date Submit Date Provider Last Modified By Organization Details Last Modified Time Details Appointments None record ed. Lab None record ed. Referral None record ed. Procedures None record ed. Surgeries None record ed. Imaging XR, ankle, 3 or more view 022 03/31/[address], [address], [address], 2 14:43:17 XR, knee, 3 view 022 03/31/[address], [place] [address], [place], [address], 2 14:43:22 Medication Orders None record ed. Patient TargetsNo targets recorded. Patient InstructionsNo instructions recorded. Reason for Referral None Reported. Results Created Date Observation Date Name Description Value Unit Range Abnormal Flag Note LastModifiedBy Organization Detail LastModifiedTime 03/31/20 22 knee lt No observ ation record ed. [email or web address] [address], [address] 03/31/2022 11:17:38 03/31/20 22 XR, knee, 3 view No observ ation record ed. [email or web address] [address], [place], [address], 03/31/2022 11:17:07 03/31/20 22 XR, ankle , 3 or more view No observ ation record ed. [email or web address] [address], [place], [address], 03/31/2022 11:49:54 03/31/20 22 ankle lt No observ ation record ed. [email or web address] [address], [address] 03/31/2022 12:00:32 03/13/20 23 unk No observ ation record ed. [email or web address] [address], [address] 03/13/2023 16:56:04 Result Notes None recorded. Problems Name Problem SNOMED Code Status Onset Date Resolution Date Notes Provider Name and Address Organization Details Recorded Time Hypertens markel disorder 20297279 Active 2015 Recorded 6 11:43AM by Laura Navarro , Office Visit; Promoted; acuity set as * Not Available [facility] 7 02:18:13 Mood disorder Active 2015 Recorded 6 11:43AM by Laura Navarro , Office Visit; Promoted; acuity set as * Not Available [facility] 7 02:18:13 Clinical finding Active 2015 Recorded 6 11:43AM by Laura Navarro , Office Visit; Promoted; acuity set as * Not Available [facility] 7 02:18:13 Rheumatoi d arthritis 76456217 Active 2015 Recorded 6 11:43AM by Laura Navarro , Office Visit; Promoted; acuity set as * Not Available [facility] 7 02:18:13 Osteoarth ritis of knee 459338300 Active 2021 Reyna Stewart PA-C [address] [place], [address] , [facility] 2 13:05:25 Pain of left ankle joint 87591744731 444329 Active 2022 PAUL Tristan [place], [place], , [facility] 3 07:58:28 Acquired bilateral pes planus 51845015170 720988 Active 2022 PAUL Tristan [place], , [facility] 3 12:23:52 Problem Notes None recorded. Procedures Surgical History Date Name Laterality Status Provider Name and Address Organization Details Recorded Time 03/13/20 23 bc ultrasound guided arthrocentesis completed PAUL Tristan [place], , [facility] 03/13/2023 16:03:40 03/13/20 23 BC Ankle Injection completed PAUL Tristan [place], , [facility] 03/13/2023 16:03:08 03/31/20 22 PPE completed PAUL Tristan [place], , [facility] 03/31/2022 13:00:14 03/31/20 22 KANE- Knee Aspiration (right/left) completed PAUL Tristan [place], , [facility] 03/31/2022 13:01:19 total knee replacement completed Jaja Stevenson [facility] 03/13/2023 09:39:26 Imaging Results Imaging Date Name Status LastModified by Organiz ation Details LastModified Time 03/31/2022 knee lt completed [email or web address], [place], [address] 03/31/2022 11:17:38 03/31/2022 XR, knee, 3 view completed [email or web address] [facility] - [address], [place], [place], , 03/31/2022 11:17:07 03/31/2022 XR, ankle, 3 or more view completed [email or web address] [address], [place], [address], 03/31/2022 11:49:54 03/31/2022 ankle lt completed [email or web address] [facility] [address], [address] 03/31/2022 12:00:32 03/13/2023 unk completed [email or web address] [facility] [address], [address] 03/13/2023 16:56:04 Procedure Notes None recorded. Medical Equipment None Reported. Allergies Allergen ID Allergen Name Allergen Category Reaction Reaction Severity Criticality Documentation Date Start Date Code Code System Note Provider Name and Address Organization Details Recorded Time 680542 Product containin g penicilli n (product) medicatio n Not available Not available Not available 12/04/20162015 60803 8001 SNOMED Comme nt: Recor ded 06/19 11:43 AM by Shira Loves mith, Offic e Visit ; Promo lashell; Signi fican ce:*; Reaso n:Nelson giron aller gy; Not Available [facility] 7 21:53:33 553841 Substance with sulfonami de structure and antibacte rial mechanism of action (substanc e) medicatio n Not available Not available Not available 12/04/20162015 98984 8003 SNOMED Comme nt: Recor ded 06/19 11:43 AM by Shira Orellana mith, Offic e Visit ; Promo lashell; Signi fican ce:*; Reaso n:Nelson g aller gy; Not Available [facility] 7 21:53:33 222713 Levoxyl medicatio n Not available Not available Not available 12/04/20162015 43758 2 RxNorm Comme nt: Recor ded 06/19 11:43 AM by Shira Orellana mith, Offic e Visit ; Promo lashell; Signi fican ce:*; Reaso n:Nelson g aller gy; Not Available [facility] 7 21:53:34 028412 metoprolo l succinate medicatio n Not available Not available Not available 12/04/20162015 24538 4 RxNorm Comme nt: Recor ded 06/19 11:43 AM by Shira wesley, Offic e Visit ; Promo lashell; Shahzadi calli ce:*; Reaso n:Nelosn seth gy; Not Available [facility] 7 21:53:34 791544 doxycycli ne Not available Not available Not available Not available 03/13/2023 3640 RxNorm Sahar Graham valiente [facility] 3 09:43:38 520231 azithromy demetria medicatio n Not available Not available Not available 03/13/2023 03546 RxNorm Sahar Graham valiente [facility] 3 09:43:44 Medications Name Sig Start Date Stop Date Status Note LastModified by Organization Details LastModified Time neomycin- polymyxin -hydrocor t 3.5 mg/mL-10, 000 unit/mL-1 % ear solution 03/13 completed Not Available Not Available Not Available doxycycli ne hyclate 100 mg capsule TAKE 1 CAPSULE BY MOUTH TWICE A DAY 03/13 completed Not Available Not Available Not Available clindamyc in HCl 300 mg capsule active Not Available Not Available Not Available trazodone 50 mg tablet active Not Available Not Available Not Available cetirizin e 10 mg tablet active Not Available Not Available Not Available doxazosin 1 mg tablet active Not Available Not Available Not Available cimetidin e 400 mg tablet 03/13 completed Not Available Not Available Not Available sucralfat e 100 mg/mL oral suspensio n active Not Available Not Available Not Available meloxicam 15 mg tablet 03/13 completed Not Available Not Available Not Available prednison e 20 mg tablet active Not Available Not Available Not Available clindamyc in HCl 150 mg capsule active Not Available Not Available Not Available propranol ol 60 mg tablet active Not Available Not Available Not Available amlodipin e 5 mg tablet active Not Available Not Available Not Available aspirin 81 mg tablet,de layed release 03/13 completed Not Available Not Available Not Available doxycycli ne monohydra te 100 mg tablet 03/13 completed Not Available Not Available Not Available quetiapin e 100 mg tablet active Not Available Not Available Not Available triamcino lone acetonide 0.1 % topical cream 03/13 completed Not Available Not Available Not Available oxycodone -acetamin ophen 5 mg-325 mg tablet 03/13 completed Not Available Not Available Not Available terbinafi ne HCl 250 mg tablet 03/13 completed Not Available Not Available Not Available famotidin e 20 mg tablet 03/13 completed Not Available Not Available Not Available dicyclomi ne 20 mg tablet active Not Available Not Available Not Available desoximet asone 0.25 % topical ointment 03/13 completed Not Available Not Available Not Available hydrocort isone 1 % topical cream APPLY THREE TIMES DAILY FOR 7 DAYS 03/13 completed Not Available Not Available Not Available cephalexi n 500 mg capsule 03/13 completed Not Available Not Available Not Available tacrolimu s 0.1 % topical ointment 03/13 completed Not Available Not Available Not Available triamcino lone acetonide 0.1 % topical ointment active Not Available Not Available Not Available clotrimaz ole-betam ethasone 1 %-0.05 % topical cream 03/13 completed Not Available Not Available Not Available prednison e 50 mg tablet TAKE 1 TABLET BY MOUTH EVERY DAY FOR 5 DAYS 03/13 completed Not Available Not Available Not Available divalproe x ER 500 mg tablet,ex tended release 24 hr active Not Available Not Available Not Available triamcino lone acetonide 0.025 % topical ointment 03/13 completed Not Available Not Available Not Available betametha sone dipropion ate 0.05 % topical cream active Not Available Not Available Not Available omeprazol e 20 mg capsule,d elayed release 03/13 completed Not Available Not Available Not Available hydroxyzi ne HCl 25 mg tablet active Not Available Not Available No t Available mirtazapi ne 15 mg tablet 03/13 completed Not Available Not Available Not Available lorazepam 1 mg tablet active Not Available Not Available Not Available ibuprofen 600 mg tablet active Not Available Not Available Not Available polyethyl abena glycol 3350 17 gram/dose oral powder active Not Available Not Available Not Available albuterol sulfate HFA 90 mcg/actua tion aerosol inhaler INHALE 2 PUFFS BY MOUTH EVERY 4 TO 6 HOURS NEEDED FOR DYSPNEA 03/13 completed Not Available Not Available Not Available fluocinon alfred 0.05 % topical cream 03/13 completed Not Available Not Available Not Available lisinopri l 40 mg tablet active Not Available Not Available Not Available fluticaso ne propionat e 50 mcg/actua tion nasal spray,jamarcus pension active Not Available Not Available Not Available clotrimaz ole 1 % topical cream APPLY TWO TIMES A DAY FOR 14 DAYS 03/13 completed Not Available Not Available Not Available naproxen 500 mg tablet active Not Available Not Available Not Available neomycin 3.5 mg/g-poly myxin B 10,000 unit/g-de xameth 0.1 % eye oint APPLY TO THE RIGHT EYE TWICE DAILY FOR 7 DAYS 03/13 completed Not Available Not Available Not Available Allergy Relief (loratadi ne) 10 mg tablet active Not Available Not Available Not Available ciproflox acin 0.3 %-dexamet hasone 0.1 % ear drops,jamarcus pension 03/13 completed Not Available Not Available Not Available rosuvasta tin 20 mg tablet active Not Available Not Available Not Available alfuzosin ER 10 mg tablet,ex tended release 24 hr active Not Available Not Available Not Available Mucus Relief 400 mg tablet TAKE 1 TABLET BY MOUTH EVERY 4 HOURS 03/13 completed Not Available Not Available Not Available pregabali n 25 mg capsule active Not Available Not Available Not Available ibuprofen 03/13 completed Recorded 06/19/20 16 11:43AM by Jose Cruz ulloa, Office Visit Not Available Not Available Not Available gabapenti n 03/13 completed Recorded 06/19/20 16 11:43AM by Jose Cruz ulloa, Office Visit Not Available Not Available Not Available fluocinol one acetonide oil 0.01 % ear drops active Not Available Not Available Not Available quetiapin e 50 mg tablet active Not Available Not Available Not Available diclofena c 1 % topical gel 03/13 completed Not Available Not Available Not Available Allergy Relief (fexofena dine) 180 mg tablet active Not Available Not Available No t Available Vitals Date Recorded Body height Body mass index (BMI) Body weight Body temperature Provider Name and Address Organization Details Last Updated DateTime 03/31/2022 167.64 cm 37.4 kg/m2 453440.43 g 97 [degF] Rolando Aguilar [facility] 03/31/2022 11:26:19 Date Recorded Body height Body mass index (BMI) Body weight Pain severity - 0-10 verbal numeric rating [Score] - Reported Provider Name and Address Organization Details Last Updated DateTime 03/13/2023 167.64 cm 37.4 kg/m2 516988.43 g 9 Jaja Stevenson [facility] 03/13/2023 09:36:51 Social History None recorded. Functional Status None recorded. Mental Status None recorded. Family History Nothing Reported. Medical History Condition Response Coronary Artery Disease N Gout N Lung Disease N Depression N Pacemaker N Hearing Impairment N Anesthesia Complications N Headaches/Migraines N Deep Vein Thrombosis N Anxiety Disorder N Arthritis N Blood Clot N Acid Reflux (GERD) N Cancer N Stroke N Organ Transplant N Rheumatoid Arthritis N Fibromyalgia N Kidney Disease N Dyslipidemia N Artificial Joints N Thyroid Problems N Anemia N Back Pain N Heart Attack (NM) N Diabetes N Bleeding Disorder N Seizures/Epilepsy N Cardiac Stent N Tuberculosis N AIDS/HIV N Inflammatory Bowel Disease N Substance Abuse N Peripheral Vascular Disease N Asthma/COPD N Wears Glasses/Contacts N Hepatitis N Heart Disease N Pulmonary Embolism N Hypertension Y Stomach Ulcer N Osteoporosis N Past Encounters Encounter ID Performer Location Encounter Start Date Encounter Closed Date Diagnosis/Indication Diagnosis SNOMED-CT Code Diagnosis ICD10 Code Diagnosis Note [id number] PAUL Tristan [address] [place] [address] 03/31/2022 10:53:54 04/04/2022 15:52:15 Pain of left ankle joint 5661957308 1136825 M25.572 Osteoarthr itis of knee 126869777 M17.12 [id number] PAUL Tristan [place] [address] [place] [phone] 03/13/2023 09:32:51 03/15/2023 10:10:09 Pain of left ankle joint 2441718231 4625466 M25.572 Osteoarthr itis of knee 332221394 M17.12 Acquired b ilateral pes planus 3312806893 9665055 M21.41 M21.42 Health Concerns Section Related Observation LastModified by Organization Detai ls LastModified Time None Recorded Concern Status LastModified by Organization Details LastModified Time None Recorded Advance Directives Directive None Recorded Payers Encounter Date Sequence Insurance Name Policy Number Policy Michelle Covered Member ID Michelle Member ID Guarantor Name 03/31/2022 1 [facility] - DOS PRIOR TO 2023 - MEDICARE [place]VANTAGE [place] (MEDICARE REPLACEMENT/ADV ANTAGE - PPO) Imer Dnoald [id number] Imer Donald 03/13/2023 1 [facility] - DOS ON OR AFTER 2023 - ONE C[employer] (MEDICARE REPLACEMENT/ADV ANTAGE - HMO) Imer Bennett [id number] Imer Bennett Notes Date Note Type Note Provider Name and Address Organization Details Recorded Time 03/31/2022 text/html This is a 66-yea r-old male who presents to clinic for evaluation of left knee and ankle pain. He has chronic pain in both the knee and ankle with multiple aspirations of the knee in the past. He presents today with increasing ankle pain and swelling after he rolled the ankle causing pain and swelling. He has known primary osteoarthritis of the left knee. He has not had any treatment of the knee aside from aspiration. He is seeing a telemedicine physician per his report. He is a somewhat poor historian as there is a bit of a language barrier. He states that today his ankle is bothering him more than the knee. He is not currently taking anything PO for the pain. He has been prescribed voltaren gel in the past but is not using it. He would like the knee aspirated today but does not want any steroid or visco supplementation. He would also like to follow up with an ankle specialist. Reyna Stewart PA-C [address] [facility], [place], [address], [facility] 03/31/2022 13:07:26 03/13/2023 text/html Imer is a 66-year-old male who presents to clinic for follow up for his left knee and ankle. He continues to have pain in both. He has severe OA in his knee. He has elected to only have it aspirated in the past. He does not want corticosteroids nor a TKA due to a traumatic past experience with surgery. The ankle bothers him more than the knee. He has purchased soft OTC insoles which haven't helped him much. Most of the pain and swelling is over the medial part of the ankle. Reyna Stewart PA-C [address] [place] [address], [phone], [facility] 03/13/2023 16:09:39
--- OUTSIDE RECORDS SUMMARY | 2025-01-21 10:08 | XMS_ITS | Data Portability ---
Author Organization [place] - [facility], Allergy Address [address] [address] Care Team Providers Care Screening Nurse Name Role Phone MIRIAM BUCHANAN Primary Care Provider [phone] Assessment Encounter Date Assessment Date Assessment LastModified [...] a CT maxilloface with contrast 10/24/2024 at [facility] which was personally reviewed. CT did [...] Referral oral surgery/d entist referral 2024 025 [facility] Oral Surgery, [address] [place], [address], 08:54:37 Procedures None recorded. Surgeries None recorded. [...] contr ast No observ ation record ed. [email or web address] Not Available 12/07 13:45:34 Result Notes None recorded. Problems Name Problem SNOMED Code Status Onset Date Resolution Date Notes Provider Name and Address Organization Details Recorded Time Bilateral tinnitus 65685960239 02 Active 2018 Tinnitus, bilateral ; Note: Date Diagnosed : 07/09/2019 3:39 PM (H93.13) Not Available [facility] 4 02:25:38 Deviated nasal septum 844215837 Active 2015 Deviated nasal septum; Note: Date Diagnosed : 09/15/2016 3:35 PM (J34.2) Not Available [facility] 4 02:25:38 Obstructi ve sleep apnea syndrome 64423750 Active 2018 Obstructi ve sleep apnea (adult) (pediatri c); Note: Date Diagnosed : 07/09/2019 3:39 PM (G47.33) Not Available [facility] 4 02:25:29 Hypertrop hy of nasal turbinate s 25578960 Active 2015 Hypertrop hy of nasal turbinate s; Note: Date Diagnosed : 09/15/2016 3:40 PM (J34.3) Not Available [facility] 4 02:25:22 Pain of left temporoma ndibular joint 51240705826 963571 Active 2018 Arthralgi a of left temporoma ndibular joint; Note: Date Diagnosed : 11/05/2018 3:34 PM (M26.622) Not Available [facility] 4 02:25:24 Impacted cerumen in left ear 28192445978 77221 Active 2019 Impacted cerumen, left ear; Note: Date Diagnosed : 05/03/2020 10:11 AM (H61.22) Not Available [facility] 4 02:25:38 Impacted cerumen of bilateral ears 33501598320 98790 Active 2017 Impacted cerumen, bilateral ; Note: Date Diagnosed : 8 11:12 AM (H61.23) Not Available [facility] 4 02:25:33 Allergic rhinitis 73794781 Active 2017 Perennial allergic rhinitis; Note: Date Diagnosed : 09/09/2018 12:47 PM (J30.89) Not Available [facility] 4 02:25:32 Otalgia of left ear 0146774317 Active 2018 Otalgia, left ear; Note: Date Diagnosed : 11/05/2018 3:34 PM (H92.02) Not Available [facility] 4 02:25:20 Tinnitus of left ear 73765505146 06 Active 2017 Tinnitus, left ear; Note: Date Diagnosed : 8 11:28 AM (H93.12) Not Available [facility] 4 02:25:30 Nasal congestio n 23607368 Active 2015 Nasal congestio n; Note: Date Diagnosed : 09/15/2016 3:35 PM (R09.81) Not Available [facility] 4 02:25:29 Hemoptysi s 40665869 Active 2018 Hemoptysi s; Note: Date Diagnosed : 11/22/2018 12:51 PM (R04.2) Not Available [facility] 4 02:25:36 Sensorine ural hearing loss of bilateral ears 639007833 Active 2017 Sensorine ural hearing loss, bilateral ; Note: Date Diagnosed : 8 11:28 AM (H90.3) Not Available [facility] 4 02:25:42 Non-toxic uninodula r goiter 737534106 Active 2018 Nontoxic uninodula r goiter; Note: Date Diagnosed : 9 3:26 PM (E04.1) Not Available [facility] 4 02:25:39 Bleeding from nose 874914850 Active 2024 BINTA BADILLO PA-C 100 [facility] 100, [place], [address] , [place] - [facility] 5 10:27:14 Nasal mucosa dry 37731232 Active 2024 BINTA BADILLO PA-C [address], [place], [address] , [place] - [facility] 10:27:27 Infection of tooth 900097360 Active 2024 NERI PIERCE PA-C [address], [place], [address] , [place] - [facility] 16:39:52 Pain in face 33314252 Active 2024 NERI PIERCE PA-C [address] [facility], [place], [address] , [place] - [facility] 16:39:57 Atypical facial pain 00163911 Active 2024 NERI PIERCE PA-C [address] [facility] [address], [place], [address] , [place] - [facility] 16:40:10 Anterior epistaxis 790942787 Active 2024 NERI PIERCE PA-C [address] [facility] [address], [place], [address] , [place] - [facility] 16:40:20 Problem Notes None recorded. Procedures Surgical History Date Name Laterality Status Provider Name and Address Organization Details Recorded Time 01/01/2025 FOL_DP completed NERI PIERCE PA-C [address] [facility] [place] [address], [place], [address], [place] - [facility] 01/01/2025 16:45:05 11/25/2024 Comp Audio with Tymps (41111 & 18945) completed Larry VALDERRAMA [address], [place], [address], [place] - [facility] 11/25/2024 09:59:04 Imaging Results Imaging Date Name Status LastModified by Organiz ation Details LastModified Time 11/25/2024 audiogram completed BARCODE Information no t available 11/25/2024 11:27:09 10/24/2024 CT, maxillofacial, w/ contrast completed [email or web address] Information not available 01/02/2025 13:45:34 Procedure Notes None recorded. Medical Equipment None Reported. Allergies Allergen ID Allergen Name Allergen Category Reaction Reaction Severity Criticality Documentation Date Start Date Code Code System Note Provider Name and Address Organization Details Recorded Time 96243 levofloxa demetria medicatio n other Not available Not available 02/19/2024 11596 RxNorm React ion: unkno wn, unspe cifie d;; Not Available [facility] 4 00:55:46 02180 penicilli n V potassium medicatio n other Not available Not available 02/19/2024 15618 5 RxNorm React ion: unkno wn, unspe cifie d;; Not Available [facility] 4 00:55:48 40523 Substance with sulfonami de structure and antibacte rial mechanism of action (substanc e) medicatio n other Not available Not available 02/19/2024 32906 8003 SNOMED React ion: unkno wn, unspe cifie d;; Not Available [facility] 4 00:55:54 Medications Name Sig Start Date Stop Date Status Note LastModified by Organization Details LastModified Time quetiapin e 25 mg tablet 11/25 completed Medicati on ID: [id number] D uration Value: 90 Brand Name: quetiapi ne Send Method: E-Prescr ibed Sub s Allowed: subs OK Medic ationGen ericName : quetiapi ne Not Available Not Available Not Available amoxicill in 500 mg capsule 11/25 completed Not Available Not Available Not Available neomycin- polymyxin -hydrocor t 3.5 mg/mL-10, 000 unit/mL-1 % ear solution 05/03 completed Medicati on ID: [id number] D uration Value: 10 Reason: () Brand Name: neomycin -polymyx in-HC Se nd Method: E-Prescr ibed Sub s Allowed: subs OK Medic ationGen ericName : neomycin -polymyx in-HC Not Available Not Available Not Available acetic acid 2 % ear solution 11/25 completed Not Available Not Available Not Available prednison e 10 mg tablet 12/08 completed Medicati on ID: [id number] D uration Value: 5 Brand Name: predniso ne Send Method: E-Prescr ibed Sub s Allowed: subs OK Medic ationGen ericName : predniso ne Not Available Not Available Not Available doxycycli ne hyclate 100 mg capsule 09/15 completed Medicati on ID: [id number] D uration Value: 10 Brand Name: doxycycl ine hyclate Send Method: E-Prescr ibed Sub s Allowed: subs OK Medic ationGen ericName : doxycycl ine hyclate Not Available Not Available Not Available cefuroxim e axetil 250 mg tablet 05/03 completed Medicati on ID: [id number] D uration Value: 10 Reason: () Brand Name: cefuroxi me axetil S end Method: E-Prescr ibed Sub s Allowed: subs OK Medic ationGen ericName : cefuroxi me axetil Not Available Not Available Not Available clindamyc in HCl 300 mg capsule 11/25 completed Not Available Not Available Not Available Vitamin C 500 mg tablet 2018 active Medicati on ID: [id number] D uration Value: 100 Brand Name: Vitamin [...] mg tablet 05/03 completed Medicati on ID: [id number] P rescribe d By Name: Mateusz Dowell [...] tablet 10/20/ 2020 active Medicati on ID: [id number] D uration Value: 90 Prescri bed By [...] mg tablet 11/29 completed Medicati on ID: [id number] D uration Value: 30 Reason: () Brand Name: quetiapi ne Send Method: E-Prescr ibed Sub s Allowed: subs OK Medic ationGen ericName : quetiapi ne Not Available Not Available Not Available alprazola m 0.5 mg tablet 05/03 completed Medicati on ID: [id number] D uration Value: 1 Reason: () Brand Name: alprazol am Send Method: E-Prescr ibed Sub s Allowed: subs OK Medic ationGen ericName : alprazol am Not Available Not Available Not Available lorazepam 0.5 mg tablet 2018 active Medicati on ID: 339172 D uration Value: 30 Brand Name: lorazepa m Send Method: E-Prescr ibed Sub s Allowed: subs OK Medic ationGen ericName : lorazepa m Not Available Not Available Not Available trazodone 100 mg tablet 11/25 completed Not Available Not Available Not Available Ponaris nasal solution 2 puff into both nostrils 11/25 completed Medicati on ID: [id number] B rand Name: Ponaris Send Method: E-Prescr ibed Sub s Allowed: subs OK Medic ationGen ericName : Ponaris Not Available Not Available Not Available triamcino lone acetonide 0.1 % topical ointment 11/25 completed Not Available Not Available Not Available clotrimaz ole-betam ethasone 1 %-0.05 % topical cream 12/08 completed Medicati on ID: [id number] D uration Value: 15 Brand Name: clotrima zole-bet amethaso ne Send Method: E-Prescr ibed Sub s Allowed: subs OK Medic ationGen ericName : clotrima zole-bet amethaso ne Not Available Not Available Not Available divalproe x ER 500 mg tablet,ex tended release 24 hr active Not Available Not Available Not Available omeprazol e 20 mg capsule,d elayed release 11/25 completed Medicati on ID: [id number] D uration Value: 30 Brand Name: omeprazo le Send Method: E-Prescr ibed Sub s Allowed: subs OK Medic ationGen ericName : omeprazo le Not Available Not Available Not Available gabapenti n 100 mg capsule 12/08 completed Medicati on ID: [id number] D uration Value: 90 Brand Name: gabapent in Send Method: E-Prescr ibed Sub s Allowed: subs OK Medic ationGen ericName : gabapent in Not Available Not Available Not Available lorazepam 1 mg tablet active Not Available Not Available Not Available azelastin e 137 mcg (0.1 %) nasal spray 2 spray into both nostrils 12/08 completed Medicati on ID: [id number] P marline d By Name: Mateusz Le [...] mg capsule 05/03 completed Medicati on ID: [id number] D uration Value: 30 Reason: () Brand Name: dicyclom ine Send Method: E-Prescr ibed Sub s Allowed: subs OK Medic ationGen ericName : dicyclom ine Not Available Not Available Not Available ipratropi um bromide 21 mcg (0.03 %) nasal spray 2 spray into both nostrils 05/03 completed Medicati on ID: [id number] P marline [place] By Name: Mateusz Le [...] kendra wade 2018 active Medicati on ID: [id number] D uration Value: 1 Brand Name: peg 3350-charlette ctrolyte s Send Method: E-Prescr ibed Sub s Allowed: subs OK Medic ationGen ericName : peg 3350-charlette ctrolyte s Not Available Not Available Not Available FeroSul 325 mg (65 mg iron) tablet 11/25 completed Medicati on ID: [id number] D uration Value: 100 Brand Name: ferrous sulfate Send Method: E-Prescr ibed Sub s Allowed: subs OK Medic ationGen ericName : ferrous sulfate Not Available Not Available Not Available diclofena c 1 % topical gel 05/03 completed Medicati on ID: [id number] D uration Value: 14 Reason: () Brand Name: diclofen ac sodium S end Method: E-Prescr ibed Sub s Allowed: subs OK Medic ationGen ericName : diclofen ac sodium Not Available Not Available Not Available GaviLyte- G 236 gram-22.7 4 gram-6.74 gram-5.86 gram oral solution 05/03 completed Medicati on ID: [id number] D uration Value: 1 Reason: () Brand Name: GaviLyte -G Send Method: E-Prescr ibed Sub s Allowed: subs OK Medic ationGen ericName : GaviLyte -G Not Available Not Available Not Available Xifaxan 550 mg tablet 12/08 completed Medicati on ID: [id number] D uration Value: 14 Brand Name: Xifaxan Send Method: E-Prescr ibed Sub s Allowed: subs OK Medic ationGen ericName : Xifaxan Not Available Not Available Not Available sodium,po tassium,m ag sulfates 17.5 gram-3.13 gram-1.6 gram oral soln active Not Available Not Available Not Available naproxen sodium 220 mg capsule 2 capsule by mouth 2018 active Medicati on ID: [id number] P marline d By Name: Mateusz Dowell [...] by mouth 11/25 completed Medicati on ID: [id number] D uration Value: 30 Brand Name: Radha [...] Updated DateTime 01/01/2025 167.64 cm 36.8 kg/m2 160661.06 g Miguel Katie [place] - [facility] 01/01/2025 14:36:35 Date Recorded Body height Body mass index (BMI) Body weight Provider Name and Address Organization Details Last Updated DateTime 11/25/2024 167.64 cm 36.8 kg/m2 313294.06 g Sienna Ortiz [facility] 11/25/2024 09:17:02 Social History None recorded. Functional Status None recorded. Mental Status None recorded. Family History Nothing Reported. Medical History No medical history recorded. Past Encounters Encounter ID Performer Location Encounter Start Date Encounter Closed Date Diagnosis/Indication Diagnosis SNOMED-CT Code Diagnosis ICD10 Code Diagnosis Note [id number] PALAK BUCHANAN MD [facility] [address] [address] 11/25/2024 09:05:46 11/25/2024 10:17:30 Sensorineural hearing loss of bilateral ears 792333110 H90.3 Audiologic al evaluation results: Right ear: [...] maintain a hermetic seal}} Bleeding from nose 75681 6005 R04.0 Nasal mucosa dry 0653056 2 J34.89 [id number] BRENDON ROSSI MD [facility] [address] [address] 01/01/2025 14:23:08 01/01/2025 15:19:01 Infection of tooth 799765319 K04.7 Atypical facial pain 713 56051 G50.1 Anterior epistaxis 01436 4002 R04.0 Health Concerns Section Related Observation LastModified by Organization Detai ls LastModified Time None Recorded Concern Status LastModified by Organization Details LastModified Time None Recorded Advance Directives Directive None Recorded Payers Encounter Date Sequence Insurance Name Policy Number Policy Michelle Covered Member ID Michelle Member ID Guarantor Name 11/25/2024 1 [facility] - DOS ON OR AFTER 2023 - LONG-TERM OPTIONS AND ONE CARE (MEDICARE REPLACEMENT/ADV ANTAGE - PPO) Imer Bennett [id number] Imer Bennett 01/01/2025 1 [facility] - DOS ON OR AFTER 2023 - DUAL ELIGIBLE - LONG-TERM OPTIONS AND ONE CARE (MEDICARE REPLACEMENT/ADV ANTAGE - HMO) Imer Bennett [id number] Imer Bennett Notes Date Note Type Note [...] ongoing for years. He has previously seen flight surgeon. PALAK BUCHANAN MD [address] [place] [address], [address], [facility] - [facility] 11/25/2024 21:43:24 01/01/2025 text/html 69-year-old male [...] resolved. He reports recent CT scan at [facility]. BRENDON ROSSI MD [address] [place] [address],[address], [address], [facility] - [facility] 01/01/2025 17:12:27
--- OUTSIDE RECORDS SUMMARY | 2025-01-21 10:08 | XMS_ITS | Encounter Summary ---
Author Organization [facility] Address [address] [place] [address] Care Team Providers Care Hospice Care Sales Consultant Name Role Phone Ezequiel Mena DO Primary Care Provider [phone] Encounter Details Date Type Department Care Team ([facility] st Contact Info) Description 07/09/2024 9:29 AM EDT Hospital Encounter TH HISTORIC ENCOUNTERS EASTERN CONVERSION ONLY Zia Dunn MD [address] [place] [id number] Social History Tobacco Use Types Packs/Day Years [...] 10:00 AM EDT CHIEF COMPLAINT: Follow-up IDENTIFIER:Imer eBnnett is a 68 y.o. male. HPI: 68-year-old Sammarinese speaking man, who initially had pulmonary embolism [...] thrombosis (HCC) RECURRENT DEEP VEIN THROMBOSIS 68-year-old Sammarinese speaking man, who has multiple medical issues, [...] on filedocumented in this encounter Care Teams Hospice Care Sales Consultant Relationship Specialty Start Date End Date Ezequiel Mena DO [address] [place] [address] PCP - General Internal Medicine 12/27/20 documented as of this encounter
== END 2025-01-21 09:18 | disposition home or self-care (01) ==
LOC: HO.HMGCX 09:17
PROVIDERS: PCP Internal Medicine; Visit Provider Internal Medicine Nephrology
DX: R10.9 Unspecified abdominal pain (principal); I10 Essential (primary) hypertension
CPT/HCPCS: 76775

== ENCOUNTER → 2025-01-21 09:21 | Outpatient (BNV) | payer OTHER, SELFPAY | PROVIDERS: PCP Internal Medicine; Visit Provider Radiology Diagnostic Radiology | DX: R10.31 Right lower quadrant pain (principal) | CPT/HCPCS: 76775 ==

== ENCOUNTER 2025-01-28 08:38 | Outpatient (AMB) | payer OTHER, SELFPAY ==
[2025-01-28 08:42] VITALS: BP 124/78; PULSE 71; O2SAT 98; BMI 36.9
--- NOTE | 2025-01-28 08:42 | HO.NEPHOV_ITS ---
Vital Signs 01/28/25 08:42 Height 5 ft 6 in Weight 228 lb 6 oz BMI 36.9 BP 124/78 Blood Pressure Location Rt brachial Position Sitting Pulse 71 Pulse Source Pulse Oximeter Pulse Oximetry (%) 98 Oxygen Delivery Method Room Air Intake Visit Reasons: 6mon follow up/ Conf Wireless Development Manager Required: Yes Wireless Development Manager Language: Khmer Wireless Development Manager Name: ([phone]) Allergies azithromycin Allergy (Unknown, Verified 01/28/25 08:43) Rash levofloxacin Allergy (Unknown, Verified 01/28/25 08:43) rash metoprolol Allergy (Unknown, Verified 01/28/25 08:43) Rash rifaximin [Xifaxan] Allergy (Unknown, Verified 01/28/25 08:43) Rash risperidone Allergy (Unknown, Verified 01/28/25 08:43) Rash Sulfacet-R Allergy (Unknown, Uncoded 01/28/25 08:43) Rash HPI Comments Details: 69-year-old man with a history of hypertension has been referred for evaluation of hyponatremia. Few months ago he was hospitalized. He had diarrhea and was diagnosed with hypovolemic hyponatremia. Serum sodium was 121 at time admission. Subsequently improved to 131. Recent sodium was 132 and hence the referral. Of note he is on Divalproex and lisinopril. He admits to drinking plenty of water. No specific urinary complaints. No polyuria polydipsia. History of renal cyst He has been followed by Dr. Durant. Underwent cystoscopy which was essentially unremarkable. 01/28/25 Here for follow up Seen 2 weeks ago by my associate for flank pain Renal USG was done .Results reviewed Interpretor was used Having issues with dentition. On antibiotics [facility] Medical History GERD (gastroesophageal reflux disease) Polyp of colon Anxiety and depression Stenosis, cervical spine HLD (hyperlipidemia) H/O bipolar disorder Insomnia HTN (hypertension) Microscopic hematuria (~2016) Surgical History History of total knee replacement Family History Father CAD (coronary artery disease) Brother CAD (coronary artery disease) Physical Exam Vital Signs: Last Vital Signs Pulse 71 01/28/25 08:42 BP 124/78 01/28/25 08:42 Pulse Ox 98 01/28/25 08:42 Oxygen Delivery Method Room Air 01/28/25 08:42 BMI result Body Mass Index 36.9 Const General: comfortable; No acute distress Orientation/consciousness: patient oriented x3 Eyes General: appearance normal, both eyes and all related structures Visual Alra: normal visual lara by confrontation Neck Neck: Yes supple and Yes no JVD Resp Effort & Inspection: normal respiratory effort and respiratory effort not decreased Auscultation: rhonchi Cardio Palpation: no palpable S3 and no palpable S4 Heart sounds: no rubs GI Inspection: Yes normal to inspection Palpation (GI): Soft to palpation Percussion: Yes normal to percussion Auscultation: normal bowel sounds General: Yes no CVA tenderness Back/Spine/Pelvis Back: no CVA tenderness Skin General skin exam: no petechiae and no purpura Neuro General: patient oriented x3 and no focal motor deficits Extrem General: No clubbing and No edema Results Reviewed Results Reviewed: Right kidney: The right kidney measures 12.8 x 6.7 x 6.3 cm. Renal parenchymal echotexture and thickness are normal. There are no masses. There is no hydronephrosis or renal calculi. Left Kidney: The left kidney measures 13.4 x 6.7 x 6.6 cm. Renal parenchymal echotexture and thickness are normal. There is a 3.9 x 3.1 x 3.4 cm cyst at the upper pole. There is no hydronephrosis or renal calculi. US/US renal BI IMPRESSION: 3.9 x 3.1 x 3.4 cm left upper pole renal cyst. Otherwise unremarkable renal ultrasound. Nephrology Results: Sodium 135 mmol/L (135-145) 07/16/24 Potassium 4.6 mmol/L (3.3-5.1) 07/16/24 Chloride 101 mmol/L (96-108) 07/16/24 Carbon Dioxide 27 mmol/L (22-29) 07/16/24 BUN 11 mg/dL (9-16) 07/16/24 Creatinine 0.66 mg/dL (0.5-1.4) 07/16/24 Calcium 9.6 mg/dL (8.4-10.2) 07/16/24 PTH Intact 39.2 pg/mL (8.7-77.1) 07/16/24 Urine Creatinine 158.50 mg/dL 07/16/24 Renal US 01/21/25 Assessment & Plan Assessment & Plan (1) HTN (hypertension): Code(s): I10 - Essential (primary) hypertension Category: Medical Qualifiers: Hypertension type: primary hypertension Qualified Code(s): I10 - Essential (primary) hypertension (2) Hyponatremia: Code(s): E87.1 - Hypo-osmolality and hyponatremia Category: Medical Plan 69-year-old man with history of hypertension and hyponatremia. Blood pressure is well controlled. Hyponatremia most likely due to decreased free water clearance. He has been drinking excess free water which could be a contributing factor. Both divalproex and lisinopril could be contributing to decreased free water clearance. In the meantime encouraged him to limit free water intake. Switched lisinopril to valsartan Tolerating well Goal is to maintain serum sodium more than 133 millimoles. Renal Cyst- Continue follow up with Urology Dental infection- on Amoxicillin . Orders: Orders Basic Metabolic Panel 6 Months E87.1 - Hypo-osmolality and hyponatremia Coding Level of Care Code Est Pt Level 4 (81247) Diagnoses Primary hypertension I10 Hypertension type: primary hypertension Hyponatremia E87.1
--- OUTSIDE RECORDS SUMMARY | 2025-01-28 09:01 | XMS_ITS | Data Portability ---
Author Organization [facility] Address [address] [place] [address] Care Team Providers Care Crime Prevention Worker Name Role Phone MIRIAM BUCHANAN Primary Care Provider [phone] Assessment Encounter Date Assessment Date Assessment LastModified [...] time was 44 minutes in length including vbfp-dc-clcs and djm-rbpq-ch-face time. Not available 03/31/2022 13:06:26 03/13/2023 03/13/2023 [...] time was 45 minutes in length including grse-kg-stnr and fst-wexg-ih-face time. Not available 03/13/2023 16:08:39 Plan of Treatment Reminders Order Date Submit Date Provider Last Modified By Organization Details Last Modified Time Details Appointments None record ed. Lab None record ed. Referral None record ed. Procedures None record ed. Surgeries None record ed. Imaging XR, ankle, 3 or more view 022 03/31/[address], [address], [address], 2 14:43:17 XR, knee, 3 view 022 03/31/[address], [place] [address], [place], [address], 2 14:43:22 Medication Orders None record ed. Patient TargetsNo targets recorded. Patient InstructionsNo instructions recorded. Reason for Referral None Reported. Results Created Date Observation Date Name Description Value Unit Range Abnormal Flag Note LastModifiedBy Organization Detail LastModifiedTime 03/31/20 22 knee lt No observ ation record ed. [email or web address] [address], [address] 03/31/2022 11:17:38 03/31/20 22 XR, knee, 3 view No observ ation record ed. [email or web address] [address], [place], [address], 03/31/2022 11:17:07 03/31/20 22 XR, ankle , 3 or more view No observ ation record ed. [address], [place], [address], 03/31/2022 11:49:54 03/31/20 22 ankle lt No observ ation record ed. [email or web address] [address], [address] 03/31/2022 12:00:32 03/13/20 23 unk No observ ation record ed. [email or web address] [address], [address] 03/13/2023 16:56:04 Result Notes None recorded. Problems Name Problem SNOMED Code Status Onset Date Resolution Date Notes Provider Name and Address Organization Details Recorded Time Hypertens markel disorder 82185989 Active 2015 Recorded 6 11:43AM by Laura Navarro , Office Visit; Promoted; acuity set as * Not Available [facility] 7 02:18:13 Mood disorder Active 2015 Recorded 6 11:43AM by Laura Navarro , Office Visit; Promoted; acuity set as * Not Available [facility] 7 02:18:13 Clinical finding Active 2015 Recorded 6 11:43AM by Laura Navarro , Office Visit; Promoted; acuity set as * Not Available [facility] 7 02:18:13 Rheumatoi d arthritis 28890669 Active 2015 Recorded 6 11:43AM by Laura Navarro , Office Visit; Promoted; acuity set as * Not Available [facility] 7 02:18:13 Osteoarth ritis of knee 944169092 Active 2021 Reyna Stewart PA-C [address] [place], [address] , [facility] 2 13:05:25 Pain of left ankle joint 51653834785 296745 Active 2022 PAUL Tristan [place], , [facility] 3 07:58:28 Acquired bilateral pes planus 16027854607 879817 Active 2022 PAUL Tristan [place], , [facility] 3 12:23:52 Problem Notes None recorded. Procedures Surgical History Date Name Laterality Status Provider Name and Address Organization Details Recorded Time 03/13/20 23 bc ultrasound guided arthrocentesis completed PAUL Tristan [place], , [facility] 03/13/2023 16:03:40 03/13/20 23 BC Ankle Injection completed PAUL Tristan [place], , [facility] 03/13/2023 16:03:08 03/31/20 22 PPE completed PAUL Tristan [place], , [facility] 03/31/2022 13:00:14 03/31/20 22 KANE- Knee Aspiration (right/left) completed PAUL Tristan [place], , [facility] 03/31/2022 13:01:19 total knee replacement completed Jaja Stevenson [facility] 03/13/2023 09:39:26 Imaging Results Imaging Date Name Status LastModified by Organiz ation Details LastModified Time 03/31/2022 knee lt completed [email or web address], [place], [address] 03/31/2022 11:17:38 03/31/2022 XR, knee, 3 view completed [email or web address] [facility] - [address], [place], [place], , 03/31/2022 11:17:07 03/31/2022 XR, ankle, 3 or more view completed [email or web address] [address], [place], [address], 03/31/2022 11:49:54 03/31/2022 ankle lt completed [employer] [address], [address] 03/31/2022 12:00:32 03/13/2023 unk completed [email or web address] [employer] [address], [address] 03/13/2023 16:56:04 Procedure Notes None recorded. Medical Equipment None Reported. Allergies Allergen ID Allergen Name Allergen Category Reaction Reaction Severity Criticality Documentation Date Start Date Code Code System Note Provider Name and Address Organization Details Recorded Time 313346 Product containin g penicilli n (product) medicatio n Not available Not available Not available 12/04/20162015 50897 8001 SNOMED Comme nt: Recor ded 06/19 11:43 AM by Shira Loves mith, Offic e Visit ; Promo lashell; Signi fican ce:*; Reaso n:Nelson giron aller gy; Not Available [facility] 7 21:53:33 958861 Substance with sulfonami de structure and antibacte rial mechanism of action (substanc e) medicatio n Not available Not available Not available 12/04/20162015 68400 8003 SNOMED Comme nt: Recor ded 06/19 11:43 AM by Shira Orellana mith, Offic e Visit ; Promo lashell; Signi fican ce:*; Reaso n:Nelson g aller gy; Not Available [facility] 7 21:53:33 223235 Levoxyl medicatio n Not available Not available Not available 12/04/20162015 54304 2 RxNorm Comme nt: Recor ded 06/19 11:43 AM by Shira Orellana mith, Offic e Visit ; Promo lashell; Signi fican ce:*; Reaso n:Nelson g aller gy; Not Available [facility] 7 21:53:34 290010 metoprolo l succinate medicatio n Not available Not available Not available 12/04/20162015 10418 4 RxNorm Comme nt: Recor ded 06/19 11:43 AM by Shira wesley, Offic e Visit ; Promo lashell; Shahzadi calli ce:*; Reaso n:Nelson seth gy; Not Available [facility] 7 21:53:34 267708 doxycycli ne Not available Not available Not available Not available 03/13/2023 3640 RxNorm Sahar Graham valiente [facility] 3 09:43:38 417826 azithromy demetria medicatio n Not available Not available Not available 03/13/2023 05025 RxNorm Sahar Graham valiente [facility] 3 09:43:44 Medications [...] Updated DateTime 03/31/2022 167.64 cm 37.4 kg/m2 008051.43 g 97 [degF] Rolando Aguilar [facility] 03/31/2022 11:26:19 Date Recorded Body height Body mass index (BMI) Body weight Pain severity - 0-10 verbal numeric rating [Score] - Reported Provider Name and Address Organization Details Last Updated DateTime 03/13/2023 167.64 cm 37.4 kg/m2 241317.43 g 9 Jaja Stevenson [facility] 03/13/2023 09:36:51 Social History None recorded. Functional Status None recorded. Mental Status None recorded. Family History Nothing Reported. Medical History Condition Response Coronary Artery Disease N Dyslipidemia N Gout N Artificial Joints N Thyroid Problems N Lung Disease N Depression N Pacemaker N Anemia N Back Pain N Hearing Impairment N Anesthesia Complications N Heart Attack (MS) N Headaches/Migraines N Deep Vein Thrombosis N Anxiety Disorder N Diabetes N Bleeding Disorder N Arthritis N Seizures/Epilepsy N Cardiac Stent N Blood Clot N Tuberculosis N AIDS/HIV N Inflammatory Bowel Disease N Acid Reflux (GERD) N Cancer N Stroke N Substance Abuse N Peripheral Vascular Disease N Asthma/COPD N Wears Glasses/Contacts N Hepatitis N Heart Disease N Organ Transplant N Rheumatoid Arthritis N Pulmonary Embolism N Fibromyalgia N Hypertension Y Stomach Ulcer N Osteoporosis N Kidney Disease N Past Encounters Encounter ID Performer Location Encounter Start Date Encounter Closed Date Diagnosis/Indication Diagnosis SNOMED-CT Code Diagnosis ICD10 Code Diagnosis Note [id number] PAUL Tristan [address] [place] [address] 03/31/2022 10:53:54 04/04/2022 15:52:15 Pain of left ankle joint 5849089258 9268484 M25.572 Osteoarthr itis of knee 671122055 M17.12 [id number] PAUL Tristan Lockhart [address] [place] [address] 03/13/2023 09:32:51 03/15/2023 10:10:09 Pain of left ankle joint 6957621710 8189361 M25.572 Osteoarthr itis of knee 586158522 M17.12 Acquired b ilateral pes planus 4258489420 9632328 M21.41 M21.42 Health Concerns Section Related Observation LastModified by Organization Detai ls LastModified Time None Recorded Concern Status LastModified by Organization Details LastModified Time None Recorded Advance Directives Directive None Recorded Payers Encounter Date Sequence Insurance Name Policy Number Policy Michelle Covered Member ID Michelle Member ID Guarantor Name 03/31/2022 1 [facility] - DOS PRIOR TO 2023 - MEDICARE [place]VANTAGE [place]ICARE REPLACEMENT/ADV ANTAGE - PPO) Imer Donald [id number] Imer Donald 03/13/2023 1 [facility] - DOS ON OR AFTER 2023 - ONE CARE (MEDICARE REPLACEMENT/ADV ANTAGE - HMO) Imer Bennett [id number] Imer Bennett Notes Date Note Type Note [...] aside from aspiration. He is seeing a network security officer per his report. He is a somewhat [...] an ankle specialist. Reyna Stewart PA-C [address] [facility], [place], [address], [facility] 03/31/2022 13:07:26 03/13/2023 text/html [...] part of the ankle. Reyna Stewart PA-C [address] [place] [address], [address], [facility] 03/13/2023 16:09:39
--- OUTSIDE RECORDS SUMMARY | 2025-01-28 09:01 | XMS_ITS | Data Portability ---
Author Organization [employer] Address [address] [place] [address] Care Team Providers Care Energy And Conservation Technician Name Role Phone MYNORMIRIAM LANDERS Primary Care Provider HIM CCA OTHER Assessment [...] primary team [email or web address] Not available 05/24/2024 00:30:59 01/19/2025 01/19/2025 As noted, we were called to see this patient regarding concerns of dental pain. Evaluation in the field was performed by my lamp inspector colleague, as noted above, I provided real-time [...] worsening serious symptoms, particularly fever, worsening pain [email or web address] Not available 01/19/2025 18:41:57 Plan of Treatment Reminders Order Date Submit Date Provider Last Modified By Organization Details Last Modified Time Details Appointments None recorded. Lab None recorded. Referral None recorded. Procedures None recorded. Surgeries None recorded. Imaging None recorded. Medication Orders chlorhexidi ne gluconate 0.12 % mouthwash 2024 025 [facility], [address], [address], [place], [address], 18:25:09 Patient TargetsNo targets recorded. Patient InstructionsNo instructions recorded. Reason for Referral None Reported. Medical Equipment None Reported. Allergies Allergen ID Allergen Name Allergen Category Reaction Reaction Severity Criticality Documentation Date Start Date Code Code System Note Provider Name and Address Organization Details Recorded Time 7731 Product containin g penicilli n (product) medicatio n Not available Not available Not available 08/05/2024 24209 8001 SNOMED Not Available [facility] - production [...] % 167.64 cm 16 /min 98.7 [degF] 172368. 16 g 138 mm[Hg] 88 mm[Hg] Not Available [facility] - production 21:34:05 Date Recorded Respiratory rate Body temperature Oxygen saturation Oxygen saturation in Arterial blood by Pulse oximetry Heart rate Systolic blood pressure Diastolic blood pressure Provider Name and Address Organization Details Last Updated DateTime 16 /min 98.6 [degF] 98 % 98 % 72 /min 163 mm[Hg] 88 mm[Hg] Not Available [facility] 18:10:56 Social History None recorded. Functional Status None recorded. Mental Status None recorded. Family History Nothing Reported. Medical History No medical history recorded. Past Encounters Encounter ID Performer Location Encounter Start Date Encounter Closed Date Diagnosis/Indication Diagnosis SNOMED-CT Code Diagnosis ICD10 Code Diagnosis Note [id number] Marcin Alberto MD [facility] [address] [place] [phone] 05/23/2024 20:34:02 05/24/2024 18:49:08 Abdominal pain 46434441 R10.9 [id number] CHRISTINE OLMOS MD [facility] [address] [place] [address] 01/19/2025 18:10:52 01/19/2025 19:02:13 Infection of tooth 889990931 K04.7 Acute gingivitis 9355267 5 K05.00 Health Concerns Section Related Observation LastModified by Organization Detai ls LastModified Time None Recorded Concern Status LastModified by Organization Details LastModified Time None Recorded Advance Directives Directive None Recorded Payers Encounter Date Sequence Insurance Name Policy Number Policy Michelle Covered Member ID Michelle Member ID Guarantor Name 05/23/2024 1 [facility] - DOS ON OR AFTER 2023 - DUAL ELIGIBLE - CORRECTION OPTIONS AND ONE CARE (MEDICARE REPLACEMENT/ADV ANTAGE - HMO) Imer Bennett [id number] Imer Bennett 01/19/2025 1 [facility] - DOS ON OR AFTER 2023 - DUAL ELIGIBLE - CORRECTION OPTIONS AND ONE CARE (MEDICARE REPLACEMENT/ADV ANTAGE - HMO) Imer Bennett [id number] Imer Bennett Notes Date Note Type Note [...] ................... ................... ................... ................... ................... ................... ........ Metal Patternmaker Note From Wellington Giles: [facility] makes pt contact, a 68 YO M w/ a CC of LLQ pain.PT explains a lengthy HX of pre existing illness. PT vitals obtained and WNL. PT describes 20 years ago began seeing blood w/ bowel movement. PTs doctor continually brushed him off over all the years. Eventually pt has a colonoscopy in january at [facility] where they found 2 polyps and took them for biopsy. PT explains he never received the results but his symptoms have been slowly getting worse. PT now has a new doctor, Dr. Patton in the [facility] who wants to repeat the colonoscopy and endoscopy but has no paperwork from the [facility]. [facility] contacts [facility] and explains the above mentioned. [facility] confirms that the pts medical documentation is fairly confusing. [facility] recommends PT somehow make a mychart account which would then give him access to the appropriate medical documents and then give them to to have the procedure done. [facility] explains OR does not have the means to immediately [...] and retrieve the documentation for his new [facility] doctor. [facility] explains if his pain gets suddenly worse or he cant have a bowel movement at all that he should seek a higher level of care. And to try and follow up with his PCP and . ................... ................... ................... ................... ................... ................... ................... ........ Disposition: Fulfilled Marcin Alberto MD [address], [place], [address], [facility] [email or web address] 05/24/2024 00:31:11 01/19/2025 text/html CRC Nurse Triage Notes (Cristhian [...] ................... ................... ................... ................... ................... ................... ........ Metal Patternmaker Note From Meng Wilkes: This 69-year-old male [...] ................... ................... ................... ................... ................... ................... ........ [facility] Consulted: Christine Olmos ................... ................... ................... ................... ................... ................... ................... ........ Disposition: Fulfilled CHRISTINE OLMOS MD [address] [place] [address],[address], [place], [address], LAMAR ARZOLA 01/19/2025 18:43:05
--- OUTSIDE RECORDS SUMMARY | 2025-01-28 09:02 | XMS_ITS | Encounter Summary ---
Author Organization [facility] Address [address] [place] [address] Care Team Providers Care Spreader Box Operator Name Role Phone Ezequiel Mena DO Primary Care Provider [phone] Encounter Details Date Type Department Care Team ([facility] st Contact Info) Description 07/09/2024 9:29 AM EDT Hospital Encounter TH HISTORIC ENCOUNTERS EASTERN CONVERSION ONLY Zia Dunn MD [address] [place] [address] Social History Tobacco Use Types Packs/Day Years [...] is a 68 y.o. male. HPI: 68-year-old Martiniquais speaking man, who initially had pulmonary embolism [...] thrombosis (HCC) RECURRENT DEEP VEIN THROMBOSIS 68-year-old Martiniquais speaking man, who has multiple medical issues, [...] on filedocumented in this encounter Care Teams Spreader Box Operator Relationship Specialty Start Date End Date Ezequiel Mena DO [address] [place] [address] PCP - General Internal Medicine 12/27/20 documented as of this encounter
--- OUTSIDE RECORDS SUMMARY | 2025-01-28 09:02 | XMS_ITS | Clinical Summary ---
Author Organization [facility] Address [address] [place] [address] Care Team Providers Care Pick Pack Worker Name Role Phone Unavailable Primary Care Provider [...]
--- OUTSIDE RECORDS SUMMARY | 2025-01-28 09:02 | XMS_ITS | Clinical Summary ---
Author Organization [facility] Address [address] [id number] Care Team Providers Care Internet Marketing Consultant Name Role Phone Ezequiel Mena DO Primary Care Provider [phone] Allergies Active Allergy Reactions Criticality Noted Date [...] age to complete this topic Care Teams Internet Marketing Consultant Relationship Specialty Start Date End Date Ezequiel Mena DO [address] [place] [address] [address] [place] [address] PCP - General Internal Medicine 05/01/24
--- OUTSIDE RECORDS SUMMARY | 2025-01-28 09:02 | XMS_ITS | Clinical Summary ---
Author Organization [facility] [address] [facility] Address [address] [place] [address] Phone Care Team Providers Care Cath Lab Radiological Technologist Name Role Phone Ezequiel Mena DO Primary Care Provider [phone] Allergies Active Allergy Reactions Criticality Noted Date [...] Description 12/22/2024 11:15 AM EDT Office Visit [facility] Hematology Oncology [address] [place] [phone] Zia Dunn MD Recurrent deep venous thrombosis (CMS/HCC V24, CMS/HCC V28) (Primary Dx) 12/16/2024 Telephone [facility] Hematology Oncology [address] [place] [phone] Zia Dunn MD 12/01/2024 3:30 PM EST Office Visit Endocrinology - [address] [phone] Jyoti Iqbal MD Thyroid nodule (Primary Dx) 11/26/2024 4:39 PM EST - 11/26/2024 11:59 PM EST Hospital Encounter Radiology Department - [address] [phone] Thyroid nodule Discharge Disposition: Home or Self Care 11/26/2024 9:00 AM EST Office Visit Endocrinology - [address] [phone] Jyoti Iqbal MD Thyroid nodule (Primary Dx) from Last 3 Months Immunizations Name Administration [...] V24, CMS/HCC V28) 12/11/2013 DX:Bipolar 1 disorder (HCC) BPH without obstruction/lowe r [...] reflex microscopic (01/13/2025 10:57 AM EDT) Specific Lamy Urine 1.004 1.003 - 1.030 LAB URINALYSIS [...] 01/13/2025 1:01 PM [facility] Glucose, Urine Negative Negative mg/dL LAB URINALYSIS - AUTOMATED METHOD 01/13/2025 1:01 PM EDT [facility] Ketones, Urine Negative Negative mg/dL LAB URINALYSIS - AUTOMATED METHOD 01/13/2025 1:01 PM EDT [facility] Urobilinogen, Urine 0.2 0.2 - 1.0 mg/dL LAB URINALYSIS - AUTOMATED METHOD 01/13/2025 1:01 PM EDT [facility] Bilirubin, Urine Negative Negative LAB URINALYSIS - AUTOMATED METHOD 01/13/2025 1:01 PM EDT [facility] Blood, Urine Negative Negative LAB URINALYSIS - AUTOMATED METHOD 01/13/2025 1:01 PM EDT [facility] Urine Urine specimen obtained by clean catch procedure / Unknown Non-blood Collection / Unknown 01/13/2025 10:57 AM EDT 01/13/2025 12:44 PM EDT us Mook Paris MD LAB URINE ORDERABLES Final Resul t [facility] [address] [place] [address], * (ABNORMAL) Creatinine (01/13/2025 10:57 AM EDT) Creatinine 0.50(L) 0.70 - 1.30 mg/dL LAB CHEMISTRY METHOD 01/13/2025 1:53 PM EDT [facility] eGFR 110 >=60 mL/min/1. 73m2 LAB CHEMISTRY METHOD 01/13/2025 1:53 PM EDT [facility] Comment:Calculation based on the??Chronic Kidney Disease Epidemiology Collaboration (CKD-EPI) equation refit??without adjustment for race. Blood Venous blood specimen / Unknown Venipuncture / Unknown 01/13/2025 10:57 AM EDT 01/13/2025 12:42 PM EDT us Mook Paris MD LAB BLOOD ORDERABLES Final Resul t Performing Organization Address [facility]/ZIP Co de Phone Number [facility] [address] [place] [address], [place] [phone] * BUN (01/13/2025 10:57 AM EDT) BUN 9 5 - 25 mg/dL LAB CHEMISTRY METHOD 01/13/2025 1:53 PM EDT [facility] Blood Venous blood specimen / Unknown Venipuncture / Unknown 01/13/2025 10:57 AM EDT 01/13/2025 12:42 PM EDT us Mook Paris MD LAB BLOOD ORDERABLES Final Resul t Performing Organization Address [facility] de Phone Number [facility] [address] [place] [address], [place] [phone] * Calcium (01/13/2025 10:57 AM EDT) Calcium 9.7 8.5 - 10.5 mg/dL LAB CHEMISTRY METHOD 01/13/2025 1:53 PM EDT [facility] Blood Venous blood specimen / Unknown Venipuncture / Unknown 01/13/2025 10:57 AM EDT 01/13/2025 12:42 PM EDT us Mook Paris MD LAB BLOOD ORDERABLES Final Resul t Performing Organization Address [facility] de Phone Number [facility] [address] [place] [address], [place] [phone] * Electrolyte panel (01/13/2025 10:57 AM EDT) Sodium 134 133 - 145 mmol/L LAB CHEMISTRY METHOD 01/13/2025 1:53 PM EDT [facility] Potassium 4.4 3.5 - 5.5 mmol/L LAB CHEMISTRY METHOD 01/13/2025 1:53 PM EDT [facility] Chloride 100 96 - 110 mmol/L LAB CHEMISTRY METHOD 01/13/2025 1:53 PM EDT [facility] CO2 29 21 - 32 mmol/L LAB CHEMISTRY METHOD 01/13/2025 1:53 PM EDT [facility] Anion Gap 5 3 - 11 LAB CHEMISTRY METHOD 01/13/2025 1:53 PM EDT [facility] Blood Venous blood specimen / Unknown Venipuncture / Unknown 01/13/2025 10:57 AM EDT 01/13/2025 12:42 PM EDT Mook Paris MD LAB BLOOD ORDERABLES Final Resul t [facility] [address] [place] [address], [place] [phone] * Antithrombin III antigen (12/23/2024 1:10 PM EDT) Pathologist [facility] Antithrombin III Antigen 90 80 - 120 % 12/26/2024 9:01 AM EDT [facility] Comment: Test performed at [facility], [address] , [place], [place] ??[address] ? [phone] Yenny Mariscal MD, PhD - Protocol Manager Blood Venous blood specimen / Unknown Venipuncture / Unknown 12/23/2024 1:10 PM EDT 12/23/2024 2:28 PM EDT us Gabriel WATERMAN LAB BLOOD ORDERABLES Final Result [facility] [address] [place] [address] * Protein, total (12/23/2024 1:10 PM EDT) Pathologist [facility] Total Protein 6.8 6.0 - 8.0 g/dL LAB CHEMISTRY METHOD 12/23/2024 3:54 PM EDT [facility] Blood Venous blood specimen / Unknown Venipuncture / Unknown 12/23/2024 1:10 PM EDT 12/23/2024 2:28 PM EDT Gabriel WATERMAN LAB BLOOD ORDERABLES Final Result Performing Organization Address City/[facility]/ZIP Co de Phone Number [facility] [address] [place] [address], [place] [phone] * Vitamin B12 (12/23/2024 1:10 PM EDT) [facility] Vitamin B-12 392 250 - 900 pcg/mL LAB CHEMISTRY METHOD 12/23/2024 3:54 PM EDT [facility] Blood Venous blood specimen / Unknown Venipuncture / Unknown 12/23/2024 1:10 PM EDT 12/23/2024 2:28 PM EDT Gabriel WATERMAN LAB BLOOD ORDERABLES Final Result Performing Organization Address City/[facility]/ZIP Co de Phone Number [facility] [address] [place] [address], [place] [phone] * (ABNORMAL) CBC auto differential (12/22/2024 11:43 AM EDT) [facility] WBC 8.0 4.8 - 10.8 K/[facility] LAB HEMETOLOGY METHOD 12/22/2024 1:49 PM EDT [facility] RBC 4.70 4.50 - 5.50 M/[facility] LAB HEMETOLOGY METHOD 12/22/2024 1:49 PM EDT [facility] Hemoglobin 15.0 13.5 - 17.5 g/dL LAB HEMETOLOGY METHOD 12/22/2024 1:49 PM EDT [facility] Hematocrit 44.7 42.0 - 54.0 % LAB HEMETOLOGY METHOD 12/22/2024 1:49 PM EDT [facility] MCV 94.3 79.0 - 98.0 FL LAB HEMETOLOGY METHOD 12/22/2024 1:49 PM EDT [facility] MCH 31.6 27.0 - 32.0 pcg LAB HEMETOLOGY METHOD 12/22/2024 1:49 PM EDT [facility] MCHC 33.6 32.0 - 37.0 g/dL LAB HEMETOLOGY METHOD 12/22/2024 1:49 PM EDT [facility] RDW 13.0 11.0 - 15.0 % LAB HEMETOLOGY METHOD 12/22/2024 1:49 PM EDT [facility] Platelets 177 130 - 400 K/mcL LAB HEMETOLOGY METHOD 12/22/2024 1:49 PM EDT [facility] MPV 12.6(H) 7.0 - 11.0 FL LAB HEMETOLOGY METHOD 12/22/2024 1:49 PM EDT [facility] NRBC 0.0 <1.0 % LAB HEMETOLOGY [facility]/22[facility]24 [facility] NRBC Absolute 0.00 <0.10 K/mcL LAB HEMETOLOGY METHOD 12/22/2024 1:49 PM EDT [facility] Neutrophils Relative 63.1 % LAB HEMETOLOGY METHOD 12/22/2024 1:49 PM EDT [facility] Lymphocytes Relative 25.1 % LAB HEMETOLOGY METHOD 12/22/2024 1:49 PM EDT [facility] Monocytes Relative 8.9 % LAB HEMETOLOGY METHOD 12/22/2024 1:49 PM EDT [facility] Eosinophils Relative 1.8 % LAB HEMETOLOGY METHOD 12/22/2024 1:49 PM EDT [facility] Basophils Relative 0.6 % LAB HEMETOLOGY METHOD 12/22/2024 1:49 PM EDT [facility] Immature Granulocytes Relative 0.5 % LAB HEMETOLOGY METHOD 12/22/2024 1:49 PM EDT [facility] Neutrophils Absolute 5.03 1.50 - 7.00 K/mcL LAB HEMETOLOGY METHOD 12/22/2024 1:49 PM EDT [facility] Lymphocytes Absolute 2.00 1.00 - 5.00 K/mcL LAB HEMETOLOGY METHOD 12/22/2024 1:49 PM EDT [facility] Monocytes Absolute 0.71 0.20 - 1.00 K/mcL LAB HEMETOLOGY METHOD 12/22/2024 1:49 PM EDT [facility] Eosinophils Absolute 0.14 0.00 - 0.50 K/mcL LAB HEMETOLOGY METHOD 12/22/2024 1:49 PM EDT [facility] Basophils Absolute 0.05 0.00 - 0.20 K/mcL LAB HEMETOLOGY METHOD 12/22/2024 1:49 PM EDT [facility] Immature Granulocytes Absolute 0.04(H) 0.00 - 0.03 K/mcL LAB HEMETOLOGY METHOD 12/22/2024 1:49 PM EDT [facility] Blood Venous blood specimen / Unknown Venipuncture / Unknown 12/22/2024 11:43 AM EDT 12/22/2024 1:36 PM EDT us Zia Dunn MD LAB BLOOD ORDERABLES Final R esult [facility] [address] [place] [address], * Lactate dehydrogenase (12/22/2024 11:43 AM EDT) LDH 132 120 - 246 unit/L LAB CHEMISTRY METHOD 12/22/2024 3:11 PM EDT [facility] Blood Venous blood specimen / Unknown Venipuncture / Unknown 12/22/2024 11:43 AM EDT 12/22/2024 1:37 PM EDT us Zia Dunn MD LAB BLOOD ORDERABLES Final R esult [facility] [address] [place] [address], [place] [phone] * [place] Head Neck Soft Tissue (11/26/2024 [...] Signed Date: 11/26/2024 22:29 ET Workstation ID: [id number] Transcribed By: Self Edit Transcribed Date: 11/26/2024 [...] Signed Date: 11/26/2024 22:29 ET Workstation ID: [id number] Transcribed By: Self Edit Transcribed Date: 11/26/2024 22:27 ET us Jyoti Iqbal MD [facility] US PROCEDURES Final Result from Last 3 Months Insurance [facility] MEDICARE Member Subscriber Plan / Payer (Ef fective 2021-Present) Name:Imer Bennett Relation to Subscriber:Self Name:Imer Bennett Payer ID:[id number] Group ID:[id number] Type:Not on file Address: [place] [address] [id number] Care Teams Cath Lab Radiological Technologist Relationship Specialty Start Date End Date Ezequiel Mena DO [address] [place] [phone] PCP - General Internal Medicine 12/27/20
--- OUTSIDE RECORDS SUMMARY | 2025-01-28 09:02 | XMS_ITS | Data Portability ---
Author Organization [place] - [facility], Allergy Address [address] [address] Care Team Providers Care Concrete Mason Name Role Phone MIRIAM BUCHANAN Primary [...] a CT maxilloface with contrast 10/24/2024 at [facility] which was personally reviewed. CT did [...] Referral oral surgery/d entist referral 2024 025 [facility], [address] [place], [address], 08:54:37 Procedures None recorded. Surgeries None recorded. [...] contr ast No observ ation record ed. [email or web address] Not Available 12/07 13:45:34 Result Notes None recorded. Problems Name Problem SNOMED Code Status Onset Date Resolution Date Notes Provider Name and Address Organization Details Recorded Time Bilateral tinnitus 54666146446 02 Active 2018 Tinnitus, bilateral ; Note: Date Diagnosed : 07/09/2019 3:39 PM (H93.13) Not Available [facility] 4 02:25:38 Deviated nasal septum 665885583 Active 2015 Deviated nasal septum; Note: Date Diagnosed : 09/15/2016 3:35 PM (J34.2) Not Available [facility] 4 02:25:38 Obstructi ve sleep apnea syndrome 92366734 Active 2018 Obstructi ve sleep apnea (adult) (pediatri c); Note: Date Diagnosed : 07/09/2019 3:39 PM (G47.33) Not Available [facility] 4 02:25:29 Hypertrop hy of nasal turbinate s 15222349 Active 2015 Hypertrop hy of nasal turbinate s; Note: Date Diagnosed : 09/15/2016 3:40 PM (J34.3) Not Available [facility] 4 02:25:22 Pain of left temporoma ndibular joint 12683645769 776621 Active 2018 Arthralgi a of left temporoma ndibular joint; Note: Date Diagnosed : 11/05/2018 3:34 PM (M26.622) Not Available [facility] 4 02:25:24 Impacted cerumen in left ear 07759449834 07058 Active 2019 Impacted cerumen, left ear; Note: Date Diagnosed : 05/03/2020 10:11 AM (H61.22) Not Available [facility] 4 02:25:38 Impacted cerumen of bilateral ears 40641549940 91298 Active 2017 Impacted cerumen, bilateral ; Note: Date Diagnosed : 8 11:12 AM (H61.23) Not Available [facility] 4 02:25:33 Allergic rhinitis 60104919 Active 2017 Perennial allergic rhinitis; Note: Date Diagnosed : 09/09/2018 12:47 PM (J30.89) Not Available [facility] 4 02:25:32 Otalgia of left ear 4290212970 Active 2018 Otalgia, left ear; Note: Date Diagnosed : 11/05/2018 3:34 PM (H92.02) Not Available [facility] 4 02:25:20 Tinnitus of left ear 86885185351 06 Active 2017 Tinnitus, left ear; Note: Date Diagnosed : 8 11:28 AM (H93.12) Not Available [facility] 4 02:25:30 Nasal congestio n 00312197 Active 2015 Nasal congestio n; Note: Date Diagnosed : 09/15/2016 3:35 PM (R09.81) Not Available [facility] 4 02:25:29 Hemoptysi s 67624967 Active 2018 Hemoptysi s; Note: Date Diagnosed : 11/22/2018 12:51 PM (R04.2) Not Available [facility] 4 02:25:36 Sensorine ural hearing loss of bilateral ears 444923664 Active 2017 Sensorine ural hearing loss, bilateral ; Note: Date Diagnosed : 8 11:28 AM (H90.3) Not Available [facility] 4 02:25:42 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; Note: Date Diagnosed : 9 3:26 PM (E04.1) Not Available [facility] 4 02:25:39 Bleeding from nose 421878549 Active 2024 BINTA BADILLO PA-C 100 [facility], [place], [address] , [place] - [facility] 5 10:27:14 Nasal mucosa dry 65895857 Active 2024 BINTA BADILLO PA-C [address], [place], [address] , [place] - [facility] 10:27:27 Infection of tooth 934945333 Active 2024 NERI PIERCE PA-C [address], [place], [address] , [place] - [facility] 16:39:52 Pain in face 56461677 Active 2024 NERI PIERCE PA-C [address], [place], [address] , [place] - [facility] 16:39:57 Atypical facial pain 90357045 Active 2024 NERI PIERCE PA-C [address], [place], [address] , [place] - [facility] 16:40:10 Anterior epistaxis 171202262 Active 2024 NERI PIERCE PA-C [address], [place], [address] , [place] - [facility] 16:40:20 Problem Notes None recorded. Procedures Surgical History Date Name Laterality Status Provider Name and Address Organization Details Recorded Time 01/01/2025 FOL_DP completed NERI PIERCE PA-C [address] [facility] [place] [address], [place], [address], [place] - [facility] 01/01/2025 16:45:05 11/25/2024 Comp Audio with Tymps (44997 & 64642) completed Larry VALDERRAMA [address], [place], [address], [place] - [facility] 11/25/2024 09:59:04 Imaging Results Imaging Date Name Status LastModified by Organiz ation Details LastModified Time 11/25/2024 audiogram completed BARCODE Information no t available 11/25/2024 11:27:09 10/24/2024 CT, maxillofacial, w/ contrast completed [email or web address] Information not available 01/02/2025 13:45:34 Procedure Notes None recorded. Medical Equipment None Reported. Allergies Allergen ID Allergen Name Allergen Category Reaction Reaction Severity Criticality Documentation Date Start Date Code Code System Note Provider Name and Address Organization Details Recorded Time 05577 levofloxa demetria medicatio n other Not available Not available 02/19/2024 02848 RxNorm React ion: unkno wn, unspe cifie d;; Not Available [facility] 4 00:55:46 87893 penicilli n V potassium medicatio n other Not available Not available 02/19/2024 43271 5 RxNorm React ion: unkno wn, unspe cifie d;; Not Available [facility] 4 00:55:48 48080 Substance with sulfonami de structure and antibacte rial mechanism of action (substanc e) medicatio n other Not available Not available 02/19/2024 85285 8003 SNOMED React ion: unkno wn, unspe cifie d;; Not Available [facility] 4 00:55:54 Medications Name Sig Start Date Stop Date Status Note LastModified by Organization Details LastModified Time quetiapin e 25 mg tablet 11/25 completed Medicati on ID: [id number] D uration Value: 90 Brand Name: quetiapi ne Send Method: E-Prescr ibed Sub s Allowed: subs OK Medic ationGen ericName : quetiapi ne Not Available Not Available Not Available amoxicill in 500 mg capsule 11/25 completed Not Available Not Available Not Available neomycin- polymyxin -hydrocor t 3.5 mg/mL-10, 000 unit/mL-1 % ear solution 05/03 completed Medicati on ID: [id number] D uration Value: 10 Reason: () Brand Name: neomycin -polymyx in-HC Se nd Method: E-Prescr ibed Sub s Allowed: subs OK Medic ationGen ericName : neomycin -polymyx in-HC Not Available Not Available Not Available acetic acid 2 % ear solution 11/25 completed Not Available Not Available Not Available prednison e 10 mg tablet 12/08 completed Medicati on ID: [id number] D uration Value: 5 Brand Name: predniso ne Send Method: E-Prescr ibed Sub s Allowed: subs OK Medic ationGen ericName : predniso ne Not Available Not Available Not Available doxycycli ne hyclate 100 mg capsule 09/15 completed Medicati on ID: [id number] D uration Value: 10 Brand Name: doxycycl ine hyclate Send Method: E-Prescr ibed Sub s Allowed: subs OK Medic ationGen ericName : doxycycl ine hyclate Not Available Not Available Not Available cefuroxim e axetil 250 mg tablet 05/03 completed Medicati on ID: [id number] D uration Value: 10 Reason: () Brand Name: cefuroxi me axetil S end Method: E-Prescr ibed Sub s Allowed: subs OK Medic ationGen ericName : cefuroxi me axetil Not Available Not Available Not Available clindamyc in HCl 300 mg capsule 11/25 completed Not Available Not Available Not Available Vitamin C 500 mg tablet 2018 active Medicati on ID: [id number] D uration Value: 100 Brand Name: Vitamin [...] mg tablet 05/03 completed Medicati on ID: [id number] P rescribe d By Name: Mateusz Dowell [...] tablet 10/20/ 2020 active Medicati on ID: [id number] D uration Value: 90 Prescri bed By [...] mg tablet 11/29 completed Medicati on ID: [id number] D uration Value: 30 Reason: () Brand Name: quetiapi ne Send Method: E-Prescr ibed Sub s Allowed: subs OK Medic ationGen ericName : quetiapi ne Not Available Not Available Not Available alprazola m 0.5 mg tablet 05/03 completed Medicati on ID: [id number] D uration Value: 1 Reason: () Brand Name: alprazol am Send Method: E-Prescr ibed Sub s Allowed: subs OK Medic ationGen ericName : alprazol am Not Available Not Available Not Available lorazepam 0.5 mg tablet 2018 active Medicati on ID: [id number] D uration Value: 30 Brand Name: lorazepa m Send Method: E-Prescr ibed Sub s Allowed: subs OK Medic ationGen ericName : lorazepa m Not Available Not Available Not Available trazodone 100 mg tablet 11/25 completed Not Available Not Available Not Available Ponaris nasal solution 2 puff into both nostrils 11/25 completed Medicati on ID: [id number] B rand Name: Ponaris Send Method: E-Prescr ibed Sub s Allowed: subs OK Medic ationGen ericName : Ponaris Not Available Not Available Not Available triamcino lone acetonide 0.1 % topical ointment 11/25 completed Not Available Not Available Not Available clotrimaz ole-betam ethasone 1 %-0.05 % topical cream 12/08 completed Medicati on ID: [id number] D uration Value: 15 Brand Name: clotrima zole-bet amethaso ne Send Method: E-Prescr ibed Sub s Allowed: subs OK Medic ationGen ericName : clotrima zole-bet amethaso ne Not Available Not Available Not Available divalproe x ER 500 mg tablet,ex tended release 24 hr active Not Available Not Available Not Available omeprazol e 20 mg capsule,d elayed release 11/25 completed Medicati on ID: [id number] D uration Value: 30 Brand Name: omeprazo le Send Method: E-Prescr ibed Sub s Allowed: subs OK Medic ationGen ericName : omeprazo le Not Available Not Available Not Available gabapenti n 100 mg capsule 12/08 completed Medicati on ID: [id number] D uration Value: 90 Brand Name: gabapent in Send Method: E-Prescr ibed Sub s Allowed: subs OK Medic ationGen ericName : gabapent in Not Available Not Available Not Available lorazepam 1 mg tablet active Not Available Not Available Not Available azelastin e 137 mcg (0.1 %) nasal spray 2 spray into both nostrils 12/08 completed Medicati on ID: [id number] P marline d By Name: Mateusz Le [...] mg capsule 05/03 completed Medicati on ID: [id number] D uration Value: 30 Reason: () Brand Name: dicyclom ine Send Method: E-Prescr ibed Sub s Allowed: subs OK Medic ationGen ericName : dicyclom ine Not Available Not Available Not Available ipratropi um bromide 21 mcg (0.03 %) nasal spray 2 spray into both nostrils 05/03 completed Medicati on ID: [id number] P marline [place] By Name: Mateusz Le [...] kendra wade 2018 active Medicati on ID: [id number] D uration Value: 1 Brand Name: peg 3350-charlette ctrolyte s Send Method: E-Prescr ibed Sub s Allowed: subs OK Medic ationGen ericName : peg 3350-charlette ctrolyte s Not Available Not Available Not Available FeroSul 325 mg (65 mg iron) tablet 11/25 completed Medicati on ID: [id number] D uration Value: 100 Brand Name: ferrous sulfate Send Method: E-Prescr ibed Sub s Allowed: subs OK Medic ationGen ericName : ferrous sulfate Not Available Not Available Not Available diclofena c 1 % topical gel 05/03 completed Medicati on ID: [id number] D uration Value: 14 Reason: () Brand Name: diclofen ac sodium S end Method: E-Prescr ibed Sub s Allowed: subs OK Medic ationGen ericName : diclofen ac sodium Not Available Not Available Not Available GaviLyte- G 236 gram-22.7 4 gram-6.74 gram-5.86 gram oral solution 05/03 completed Medicati on ID: [id number] D uration Value: 1 Reason: () Brand Name: GaviLyte -G Send Method: E-Prescr ibed Sub s Allowed: subs OK Medic ationGen ericName : GaviLyte -G Not Available Not Available Not Available Xifaxan 550 mg tablet 12/08 completed Medicati on ID: [id number] D uration Value: 14 Brand Name: Xifaxan Send Method: E-Prescr ibed Sub s Allowed: subs OK Medic ationGen ericName : Xifaxan Not Available Not Available Not Available sodium,po tassium,m ag sulfates 17.5 gram-3.13 gram-1.6 gram oral soln active Not Available Not Available Not Available naproxen sodium 220 mg capsule 2 capsule by mouth 2018 active Medicati on ID: [id number] P marline d By Name: Mateusz Dowell [...] by mouth 11/25 completed Medicati on ID: [id number] D uration Value: 30 Brand Name: Radha [...] Updated DateTime 01/01/2025 167.64 cm 36.8 kg/m2 269154.06 g Miguel Katie [place] - [facility] 01/01/2025 14:36:35 Date Recorded Body height Body mass index (BMI) Body weight Provider Name and Address Organization Details Last Updated DateTime 11/25/2024 167.64 cm 36.8 kg/m2 076841.[address] [facility] 11/25/2024 09:17:02 Social History None recorded. Functional Status None recorded. Mental Status None recorded. Family History Nothing Reported. Medical History No medical history recorded. Past Encounters Encounter ID Performer Location Encounter Start Date Encounter Closed Date Diagnosis/Indication Diagnosis SNOMED-CT Code Diagnosis ICD10 Code Diagnosis Note [id number] PALAK BUCHANAN MD [facility] [address] [address] 11/25/2024 09:05:46 11/25/2024 10:17:30 Sensorineural hearing loss of bilateral ears 254555494 H90.3 Audiologic al evaluation results: Right ear: [...] maintain a hermetic seal}} Bleeding from nose 75574 6005 R04.0 Nasal mucosa dry 4551039 2 J34.89 [id number] BRENDON ROSSI MD [facility] [address] [address] 01/01/2025 14:23:08 01/01/2025 15:19:01 Infection of tooth 798748662 K04.7 Atypical facial pain 713 89378 G50.1 Anterior epistaxis 47604 4002 R04.0 Health Concerns Section Related Observation LastModified by Organization Detai ls LastModified Time None Recorded Concern Status LastModified by Organization Details LastModified Time None Recorded Advance Directives Directive None Recorded Payers Encounter Date Sequence Insurance Name Policy Number Policy Michelle Covered Member ID Michelle Member ID Guarantor Name 11/25/2024 1 [facility] - DOS ON OR AFTER 2023 - [employer] OPTIONS AND ONE CARE (MEDICARE REPLACEMENT/ADV ANTAGE - PPO) Imer Bennett [id number] Imer Bennett 01/01/2025 1 [facility] - DOS ON OR AFTER 2023 - DUAL ELIGIBLE - [employer] OPTIONS AND ONE CARE (MEDICARE REPLACEMENT/ADV ANTAGE - HMO) mIer Bennett [id number] Imer Bennett Notes Date Note Type Note [...] ongoing for years. 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 PALAK BUCHANAN MD [address] [place] [address], [address], [facility] - [facility] 11/25/2024 21:43:24 01/01/2025 text/html 69-year-old male presents [...] resolved. He reports recent CT scan at [facility]. BRENDON ROSSI MD [address] [place] [address],[address], [address], [facility] - [facility] 01/01/2025 17:12:27
== END 2025-01-28 09:00 | disposition home or self-care (01) ==
LOC: HO.HKAS 08:38
PROVIDERS: PCP Internal Medicine; Visit Provider Internal Medicine Hypertension Specialist
DX: I10 Essential (primary) hypertension (principal); E87.1 Hypo-osmolality and hyponatremia
CPT/HCPCS: 99214

== ENCOUNTER → 2025-01-28 08:38 | Outpatient (BNVA) | payer OTHER, SELFPAY | PROVIDERS: PCP Internal Medicine; Visit Provider Internal Medicine Hypertension Specialist | DX: I10 Essential (primary) hypertension (principal); E87.1 Hypo-osmolality and hyponatremia | CPT/HCPCS: 99212 ==

== ENCOUNTER 2025-08-03 15:18 | Outpatient (REF) | payer OTHER, SELFPAY ==
--- OUTSIDE RECORDS SUMMARY | 2024-07-09 09:29 | XMS_ITS | Encounter Summary ---
[facility] Organization [facility] Address [address] [place] [address] Care Team Providers Care Mc Kay Stitcher Name Role Phone Ezequiel Mena DO Primary Care Provider [phone] Encounter Details Date Type Department Care Team ([facility] st Contact Info) Description 07/09/2024 9:29 AM EDT Hospital Encounter TH HISTORIC ENCOUNTERS EASTERN CONVERSION ONLY Zia Dunn MD [address] [place] [id number] Social History Tobacco Use Types Packs/Day Years Used Date Smoking Tobacco: Never Smokeless Tobacco: Never Alcohol Use Standard Drinks/Week Comments Not Currently 0 (1 standard drink = 0.6 oz pur e alcohol) Sex and Gender Information Value Date Recorded Sex Assigned at Not on file Legal Sex Male 6:12 PM EST Gender Identity Not on file Sexual Orientation Not on file documented as of this encounter Last Filed Vital Signs Vital Sign Reading Time Taken Comments Blood Pressure 141/75 07/09/2024 10:01 AM EDT Sitting Left arm Pulse 70 07/09/2024 10:01 AM EDT Temperature - - Respiratory Rate - - Oxygen Saturation - - Inhaled Oxygen Concentration - - Weight 103 kg (227 lb 9.6 oz) 07/09/2024 10:01 AM EDT Height 167.6 cm (5' 6 ) 05/20/2024 1:32 PM EDT Body Mass Index 36.74 05/20/2024 1:32 PM EDT documented in this encounter Progress Notes * Zia Dunn MD - 07/09/2024 10:00 AM EDT CHIEF COMPLAINT: Follow-up IDENTIFIER:Imer Bennett is a 68 y.o. male. HPI: 68-year-old Samoan speaking man, who initially had pulmonary embolism embolism (question provoked )in 2013, he earlier this year presented with right lower extremity deep venous thrombosis, Doppler study showed femoral vein thrombosis, it is unclear if it was a provoked phenomena (patient told me input to the he has some procedure of right lower extremity and had a blood clot and was on Xarelto for a while about 8 years ago, I do not have any record). Patient has been on apixaban 5 mg twicea day, patient referred to me for evaluation of coagulopathy, his limited coagulopathy workup is negative ROS: Has been feeling very well No chest pain chest pressure No significant bleeding and bruising except sometimes easy bruising because of blood No significant GI symptoms like black stool blood in stool PAST MEDICAL HISTORY: Pulmonary embolism History of DVT BPH Hypertension Dyslipidemia Bipolar disorder GERD Thyroid nodule Cervical radiculopathy ?? PAST SURGICAL HISTORY: Right knee surgery ?? SOCIAL HISTORY: Never smoker Used to drink socially , lives by himself ?? FAMILY HISTORY: No significant family history of clotting disorder Current Outpatient Medications: ??? alfuzosin (UROXATRAL) 10 MG 24 hr tablet, Take 1 tablet (10 mg total) by mouth daily., Disp: , Rfl: ??? clindamycin (CLEOCIN) 150 MG capsule, Take 1 capsule (150 mg total) by mouth continuous prn., Disp: , Rfl: ??? divalproex (DEPAKOTE) 500 MG EC tablet, Take 1 tablet (500 mg total) by mouth. 500mg in am/1000mg in pm, Disp: , Rfl: ??? Glucosamine-Chondroitin (GLUCOSAMINE CHONDR COMPLEX PO), Take by mouth., Disp: , Rfl: ??? lisinopril (PRINIVIL,ZESTRIL) tablet 10 mg, Take 4 tablets (40 mg total) by mouth daily., Disp:, Rfl: ??? Loratadine (CLARITIN) 10 MG CAPS, Take by mouth., Disp: , Rfl: ??? Multiple Vitamin (MULTI VITAMIN DAILY PO), Take by mouth., Disp: , Rfl: ??? propranolol (INDERAL LA) 60 MG 24 hr capsule, Take 1 capsule (60 mg total) by mouth 2 (two) times a day., Disp: , Rfl: ??? QUEtiapine (SEROQUEL) 25 MG tablet, Take 6 tablets (150 mg total) by mouth. 50 mg afternoon, 100 mg nightime, Disp: , Rfl: ??? rosuvastatin (CRESTOR) tablet 20 mg, Take 1 tablet (20 mg total) by mouth daily., Disp: , Rfl: ??? apixaban (ELIQUIS) 2.5 MG TABS tablet, Take 1 tablet (2.5 mg total) by mouth every 12 (twelve) hours., Disp: 60 tablet, Rfl: 9 You are allergic to the following Date Reviewed: 07/09/2024 Allergen Reactions Azithromycin Not Noted Metoprolol Not Noted Penicillins Not Noted Sulfa Antibiotics Not Noted PHYSICAL EXAM: BP 141/75 (BP Location: Left arm) Pulse 70 Temp 97.7 ??F (36.5 ??C) (Temporal) Wt 103.2 kg (227 lb 9.6 oz) SpO2 99% BMI 36.74 kg/m?? ECOG 1 APPEARANCE: Alert and in no acute distress EYES: nonicteric sclera pink conjunctiva ORAL CAVITY: No significant change NECK: Neck supple, no significant adenopathy, HEART: normal S1 and S2 LUNG: clear to auscultation bilaterally LYMPH NODES: No palpable superficial adenopathy ABDOMEN: soft, nontender and no organomegaly appreciated EXTREMITIES: Erythema swelling or tenderness LABS: Anticardiolipin antibody negative Lupus anticoagulant not detected Factor V Leyden and prothrombin gene mutation test not done due to insurance coverage IMPRESSION: SNOMED CT(R) 1. Recurrent deep venous thrombosis (HCC) RECURRENT DEEP VEIN THROMBOSIS 68-year-old Samoan speaking man, who has multiple medical issues, has multiple episodes of venous thromboembolism (PE/lower extremity DVT), there is a possibility it was unprovoked at time, I didsome limited coagulopathy workup which is unremarkable, since patient has been very active, we discussed about different options including continuing anticoagulation indefinitely with regular dose but there is a risk of significant bleeding bruising, there is other option that prophylactic dose of anticoagulation like apixaban 2.5 mg twice a day, patient like this idea of prophylactic anticoagulation which is not unreasonable, especially since his limited coagulopathy workup is negative. PLAN: Because of patient's recurrent venous thrombosis, I would recommend he should continue anticoagulation indefinitely but he can use prophylactic dose that is apixaban 2.5 mg twice a day Return to office in 1 year or as needed Zia Dunn MD documented in this encounter Plan of Treatment Upcoming Encounters Date Type Department Care Team (Late st Contact Info) Description 07/29/2026 9:30 AM EDT Office Visit [facility] Hematology Oncology [address] [place] [address] Zia Dunn MD [address] [place] [address] documented as of this encounter Procedures Procedure Name Priority Date/Time Associated Diagnosis Comments ..MISCELLANEOUS REFERENCE LAB TEST 07/09/2024 ..MISCELLANEOUS REFERENCE LAB TEST 07/09/2024 ..MISCELLANEOUS REFERENCE LAB TEST 07/09/2024 documented in this encounter Results * Miscellaneous reference lab test (07/09/2024) Provider Onbase MD LAB BLOOD ORDERABLES Final Re sult * Miscellaneous reference lab test (07/09/2024) Provider Onbase MD LAB BLOOD ORDERABLES Final Re sult * Miscellaneous reference lab test (07/09/2024) Provider Onbase MD LAB BLOOD ORDERABLES Final Re sult documented in this encounter Visit Diagnoses Not on filedocumented in this encounter Care Teams Mc Kay Stitcher Relationship Specialty Start Date End Date Ezequiel Mena DO [address] [place] [phone] PCP - General Internal Medicine 12/27/20 documented as of this encounter
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
[2025-08-03 18:21] LABS: Anion Gap 11 (12-20); Blood Urea Nitrogen 8 mg/dL (9-16); Calcium 8.9 mg/dL (8.4-10.2); Carbon Dioxide 28 mmol/L (22-29); Chloride 100 mmol/L (96-108); Estimated Glomerular Filt Rate > 60; Potassium 4.2 mmol/L (3.3-5.1); Sodium 135 mmol/L (135-145)
--- OUTSIDE RECORDS SUMMARY | 2025-08-03 18:33 | XMS_ITS | Encounter Summary ---
Author Organization [facility] Address [address] [place] [address] Care Team Providers Care Shrinker Name Role Phone Ezequiel Mena DO Primary Care Provider [phone] Encounter Details Date Type Department Care Team ([facility] Contact Info) Description 07/06/2025 Lab Requisition [facility] - Main Lab [address] [facility] [place] [phone] José Miguel Durant MD [address] [facility] [address] [place] [address] Dysuria Social History Tobacco Use Types Packs/Day Years [...] on file documented as of this encounter Plan of Treatment Upcoming Encounters Date Type Department Care Team (Late Contact Info) Description 07/29/2026 9:30 AM EDT Office Visit [facility] Hematology Oncology [address] [place] [phone] Zia Dunn MD [address] [place] [address] documented as of this encounter Procedures Procedure Name Priority Date/Time Associated Diagnosis Comments CHLAMYDIA TRACHOMATIS PCR Routine 07/06/2025 12:00 AM EDT Dysuria documented in this encounter Results * Chlamydia trachomatis molecular study (07/06/2025 12:00 AM EDT) Chlamydia trachomatis PCR Negative Negative LAB MOLECULAR DIAGNOSTICS METHOD 07/07/2025 11:36 AM EDT [facility] LAB Urine Urine specimen from urethra / Unknown 07/06/2025 07/06/2025 6:44 PM EDT us José Miguel Durant MD LAB MICROBIOLOGY - GENERAL ORDERABLES Final Result [facility] [address] [place] [address], documented in this encounter Visit Diagnoses Diagnosis Dysuria documented in this encounter Care Teams Shrinker Relationship Specialty Start Date End Date Ezequiel Mena DO [address] [place] [phone] PCP - General Internal Medicine 12/27/20 documented as of this encounter
--- OUTSIDE RECORDS SUMMARY | 2025-08-03 18:33 | XMS_ITS | Encounter Summary ---
Author Organization [facility] Address [address] [place] [address] Phone Care Team Providers Care Furnace Operator And Tender Name Role Phone Jack Perez MD Primary Care Provid er Ezequiel Mena DO Primary Care Provider [phone] Encounter Details Date Type Department Care Team (Late st Contact Info) Description 02/23/2022 Procedure Pass [facility] 4 ENDO DEPT [address] [facility] [facility]th [place] [address] Social History Tobacco Use Types Packs/Day Years Used Date Smoking Tobacco: Never Smokeless Tobacco: Never Alcohol Use Standard Drinks/Week Comments Never 0 (1 standard drink = 0.6 oz pur e alcohol) Sex and Gender Information Value Date Recorded Sex Assigned at Male 12/01/2021 11:44 AM EST Legal Sex Male 6:24 PM EST Gender Identity Male 12/01/2021 11:44 AM EST Sexual Orientation Straight 12/01/2021 11 :44 AM EST documented as of this encounter Plan of Treatment Upcoming Encounters Date Type Department Care Team (Late st Contact Info) Description 08/12/2025 10:30 AM EST Appointment [facility] [address] [place] [address] Abrahan Gómez MD, PhD [address] [place] [address] [email or web address] 08/24/2025 3:00 PM EST Office Visit [facility] Endocrine, Diabetes, and Hypertension [address] [place] [address] Rell Barbosa MD [address] [facility] Endocrinology, Diabetes and Hypertension, [address] [place] [address] [email or web address] documented as of this encounter Visit Diagnoses Not on filedocumented in this encounter Care Teams Furnace Operator And Tender Relationship Specialty Start Date End Date Jack Perez MD PCP - General 04/07/14 09/28/22 Ezequiel Mena DO [address] [place] [address] PCP - General Internal Medicine 09/29/22 documented as of this encounter Additional Source Comments The information contained in this document represents components of the legal health record. It is not the complete legal health record.[facility]
--- OUTSIDE RECORDS SUMMARY | 2025-08-03 18:33 | XMS_ITS | Data Portability ---
Author Organization [employer] [facility] Address [address] [place] [address] Care Team Providers Care Software Tools Engineer Name Role Phone MIRIAM BUCHANAN Primary Care Provider [phone] HIM CCA OTHER Assessment Encounter Date Assessment [...] in the field was performed by my line lead colleague, as noted above, I provided real-time [...] worsening serious symptoms, particularly fever, worsening pain [email or web address] Not available 01/19/2025 18:41:57 Plan of Treatment Reminders Order Date Submit Date Provider Last Modified By Organization Details Last Modified Time Details Appointments None recorded. Lab None recorded. Referral None recorded. Procedures None recorded. Surgeries None recorded. Imaging None recorded. Medication Orders chlorhexidi ne gluconate 0.12 % mouthwash 2024 025 [id number], [address], [address], [place], [address], 18:25:09 Patient TargetsNo targets recorded. Patient InstructionsNo instructions recorded. Reason for Referral None Reported. Medical Equipment None Reported. Allergies Allergen ID Allergen Name Allergen Category Reaction Reaction Severity Criticality Documentation Date Start Date Code Code System Note Provider Name and Address Organization Details Recorded Time 7731 Product containin g penicilli n (product) medicatio n Not available Not available Not available 08/05/2024 37615 8001 SNOMED Not Available [facility] - production 4 03:39:25 7732 metoprolo l Not available Not available Not available Not available 08/05/2024 6918 RxNorm Not Available [facility] - production 03:39:25 Medications Name Sig Start Date Stop Date Status Note LastModified by Organization Details LastModified Time neomycin-bernardino ymyxin-hydro virgilio 3.5 mg/mL-10,000 unit/mL-1 % ear solution active Not Available Not Available Not Available trazodone 50 mg tablet active Not Available Not Available No t Available sucralfate 100 mg/mL oral suspension active Not Available Not Available N ot Available prednisone 20 mg tablet active Not Available Not Available Not Available clindamycin HCl 150 mg capsule active Not Available Not Available Not Available propranolol 60 mg tablet active Not Available Not Available Not Available amlodipine 5 mg tablet active Not Available Not Available No t Available doxycycline monohydrate 100 mg tablet active Not Available Not Available Not Available triamcinolon e acetonide 0.1 % topical cream active Not Available Not Available Not Available oxycodone-ac etaminophen 5 mg-325 mg tablet active Not Available Not Available Not Available cephalexin 500 mg capsule active Not Available Not Available Not Available tacrolimus 0.1 % topical ointment active Not Available Not Available Not Available prednisone 50 mg tablet TAKE 1 TABLET BY MOUTH EVERY DAY FOR 5 DAYS active Not Available Not Available No t Available divalproex ER 500 mg tablet,exten ded release 24 hr active Not Available Not Available Not Available lorazepam 1 mg tablet active Not Available Not Available No t Available albuterol sulfate HFA 90 mcg/actuatio n aerosol inhaler INHALE 2 PUFFS BY MOUTH EVERY 4 TO 6 HOURS NEEDED FOR DYSPNEA active Not Available Not Available No t Available lisinopril 40 mg tablet active Not Available Not Available Not Available ondansetron 4 mg disintegrati ng tablet DISSOLVE 1 TABLET ON THE TONGUE EVERY 8 HOURS NEEDED FOR NAUSEA AND VOMITING active Not Available Not Available No t Available fluticasone propionate 50 mcg/actuatio n nasal spray,suspen lorraine active Not Available Not Available Not Available clotrimazole 1 % topical cream APPLY TWO TIMES A DAY FOR 14 DAYS active Not Available Not Available Not Available neomycin 3.5 mg/g-polymyx in B 10,000 unit/g-dexam eth 0.1 % eye oint APPLY TO THE RIGHT EYE TWICE DAILY FOR 7 DAYS active Not Available Not Available No t Available Allergy Relief (loratadine) 10 mg tablet active Not Available Not Available Not Available ciprofloxaci n 0.3 %-dexamethas one 0.1 % ear drops,suspen lorraine active Not Available Not Available Not Available rosuvastatin 20 mg tablet active Not Available Not Available Not Available alfuzosin ER 10 mg tablet,exten ded release 24 hr active Not Available Not Available Not Available chlorhexidin e gluconate 0.12 % mouthwash Place 15 mL twice a day by mucous membrane route. 2024 active Not Available Not Available Not Avai lable fluocinolone acetonide oil 0.01 % ear drops INSTILL 5 DROPS INTO AFFECTED EAR TWICE A DAY FOR 7 DAYS active Not Available Not Available No t Available quetiapine 50 mg tablet active Not Available Not Available Not Available Eliquis 5 mg tablet TAKE 2 TABLETS BY MOUTH TWO TIMES A DAY FOR 6 DAYS THEN DECREASE TO 1 TABLET TWO TIMES A DAY THEREAFTER active Not Available Not Available N ot Available Vitals Date Recorded Respiratory rate Body temperature Oxygen saturation Oxygen saturation in Arterial blood by Pulse oximetry Heart rate Systolic And Diastolic Provider Name and Address Organization Details Last Updated DateTime 5 16 /min 98.6 [degF] 98 % 98 % 72 /min 163/88 mm[Hg] Not Available [facility] 5 18:10:56 Date Recorded Heart rate Oxygen saturation Oxygen saturation in Arterial blood by Pulse oximetry Body height Respiratory rate Body temperature Body weight Systolic And Diastolic Provider Name and Address Organization Details Last Updated DateTime 4 72 /min 98 % 98 % 167.64 cm 16 /min 98.7 [degF] 338254. 16 g 138/88 mm[Hg] Not Available [facility] production 4 21:34:05 Social History None recorded. Functional Status None recorded. Mental Status None recorded. Family History Nothing Reported. Medical History No medical history recorded. Past Encounters Encounter ID Performer Location Encounter Start Date Encounter Closed Date Diagnosis/Indication Diagnosis SNOMED-CT Code Diagnosis ICD10 Code Diagnosis IMO Codes Diagnosis Note [id number] Marcin Alberto MD Main - [facility] [address] [place] [phone] 05/23/2024 20:34:02 05/24/2024 18:49:08 Abdominal pain 59003788 R10.9 [id number] CHRISTINE OLMOS MD Main - [facility] [address] [place] [phone] 01/19/2025 18:10:52 01/19/2025 19:02:13 Infection of tooth 782982150 K04.7 072243 Acute gingivitis 6466279 5 K05.00 7843 Health Concerns Section Related Observation LastModified by Organization Detai ls LastModified Time None Recorded Concern Status LastModified by Organization Details LastModified Time None Recorded Advance Directives Directive None Recorded Payers Insurance Date Sequence Insurance Name Policy Number Policy Michelle Covered Member ID Michelle Member ID Guarantor Name 01/19/2025 1 [facility] - DOS ON OR AFTER 2023 - DUAL ELIGIBLE - LONG TERM OPTIONS AND ONE CARE (MEDICARE REPLACEMENT/ADV ANTAGE - HMO) Imer Bennett [id number] Imer Bennett Notes Date Note Type Note [...] ................... ................... ................... ................... ................... ................... ........ Field Crop Harvest Contractor Note From Wellington Giles: [facility] makes pt contact, a 68 YO M w/ a CC of LLQ pain.PT explains a lengthy HX of pre existing illness. PT vitals obtained and WNL. PT describes 20 years ago began seeing blood w/ bowel movement. PTs doctor continually brushed him off over all the years. Eventually pt has a colonoscopy in january at [facility] where they found 2 polyps and took them for biopsy. PT explains he never received the results but his symptoms have been slowly getting worse. PT now has a new doctor, Dr. Patton in the [facility] who wants to repeat the colonoscopy and endoscopy but has no paperwork from the [facility]. [facility] contacts [facility] and explains the above mentioned. [facility] confirms that the pts medical documentation is fairly confusing. [facility] recommends PT somehow make a mychart account which would then give him access to the appropriate medical documents and then give them to to have the procedure done. [facility] explains [place] does not have the means to immediately fix this issue with documentation. PT LLQ pain noted on palpation, although is recurring pain and symptoms of bloating. PT does have a prescribed stool softener that he explains works well but without it he would be in a lot of pain. [facility] confirms with PT the need for my chart to try and retrieve the documentation for his new [facility] doctor. [facility] explains if his pain gets suddenly worse or he cant have a bowel movement at all that he should seek a higher level of care. And to try and follow up with his PCP and . ................... ................... ................... ................... ................... ................... ................... ........ Disposition: Doanld Alberto MD [address] [facility] [address], [place], [address], RO - [employer] LAMAR 05/24/2024 00:31:11 01/19/2025 text/html ROS as noted in the HPI CRC Nurse Triage Notes (Cristhian Guerra): Reason [...] Complaint PMH: Hypertension, COPD/Asthma PMH Reviewed at 01/19/2025: Allergies Reviewed at 01/19/2025:41 Comments: 69 y.o [...] ................... ................... ................... ................... ................... ................... ........ Field Crop Harvest Contractor Note From Meng Wilkes: This 69-year-old male [...] ................... ................... ................... ................... ................... ................... ........ [facility] Consulted: Christine Olmos ................... ................... ................... ................... ................... ................... ................... ........ Disposition: Fulfilled CHRISTINE OLMOS MD [address], [place], [address], RO - [facility]AM[facility] DAVIS 01/19/2025 18:43:05
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
--- OUTSIDE RECORDS SUMMARY | 2025-08-03 18:33 | XMS_ITS | Data Portability ---
Author Organization [place] [facility] Address [address] [place] [address] Care Team Providers Care Elementary Instructional Coach Name Role Phone MIRIAM BUCHANAN Primary Care [...] time was 44 minutes in length including cahb-zu-uhgf and pub-lkzi-vc-face time. Not available 03/31/2022 13:06:26 03/13/2023 03/13/2023 [...] time was 45 minutes in length including cxym-zr-pqrf and ifo-pepz-dr-face time. Not available 03/13/2023 16:08:39 Plan of Treatment Reminders Order Date Submit Date Provider Last Modified By Organization Details Last Modified Time Details Appointments None record ed. Lab None record ed. Referral None record ed. Procedures None record ed. Surgeries None record ed. Imaging XR, ankle, 3 or more view 022 03/31/[address], [address], 2 14:43:17 XR, knee, 3 view 022 03/31/20 [address] [address], [place], [address], 2 14:43:22 Medication Orders None record ed. Patient TargetsNo targets recorded. Patient InstructionsNo instructions recorded. Reason for Referral None Reported. Results Created Date Observation Date Name Description Value Unit Range Abnormal Flag Note LastModifiedBy Organization Detail LastModifiedTime 03/31/20 22 knee lt No observ ation record ed. [email or web address], [address] 03/31/2022 11:17:38 03/31/20 22 XR, knee, 3 view No observ ation record ed. [address], [place], [address], 03/31/2022 11:17:07 03/31/20 22 XR, ankle , 3 or more view No observ ation record ed. [address], [place], [address], 03/31/2022 11:49:54 03/31/20 22 ankle lt No observ ation record ed. [email or web address] [address], [address] 03/31/2022 12:00:32 03/13/20 23 unk No observ ation record ed. [email or web address] [address], [address] 03/13/2023 16:56:04 Result Notes None recorded. Problems Name Problem SNOMED Code Status Onset Date Resolution Date Notes Provider Name and Address Organization Details Recorded Time Hypertens markel disorder 65220863 Active 2015 Recorded 6 11:43AM by Laura Navarro , Office Visit; Promoted; acuity set as * Not Available [facility] 7 02:18:13 Mood disorder Active 2015 Recorded 6 11:43AM by Laura Navarro , Office Visit; Promoted; acuity set as * Not Available [facility] 7 02:18:13 Clinical finding Active 2015 Recorded 6 11:43AM by Laura Navarro , Office Visit; Promoted; acuity set as * Not Available [facility] 7 02:18:13 Rheumatoi d arthritis 41345938 Active 2015 Recorded 6 11:43AM by Laura Navarro , Office Visit; Promoted; acuity set as * Not Available [facility] 7 02:18:13 Osteoarth ritis of knee 394164565 Active 2021 Reyna Stewart PA-C [address] [place], [address] , [facility] 2 13:05:25 Pain of left ankle joint 18394632595 335607 Active 2022 PAUL Tristan [place], [place], , [facility] 3 07:58:28 Acquired bilateral pes planus 76700772786 847984 Active 2022 PAUL Tristan [place], [place], , [facility] 3 12:23:52 Problem Notes None recorded. Procedures Surgical History Date Name Laterality Status Provider Name and Address Organization Details Recorded Time 03/13/20 23 bc ultrasound guided arthrocentesis completed PAUL Tristan [place], [place], , [facility] 03/13/2023 16:03:40 03/13/20 23 BC Ankle Injection completed PAUL Tristan [place], [place], , [facility] 03/13/2023 16:03:08 03/31/20 22 PPE completed Reyna Stewart PA-C [address] [place] [address], , [facility] 03/31/2022 13:00:14 03/31/20 22 KANE- Knee Aspiration (right/left) completed PAUL Tristan [place], [place], , [facility] 03/31/2022 13:01:19 total knee replacement completed Jaja Stevenson [facility] 03/13/2023 09:39:26 Imaging Results None recorded. Procedure Notes None recorded. Medical Equipment None Reported. Allergies Allergen ID Allergen Name Allergen Category Reaction Reaction Severity Criticality Documentation Date Start Date Code Code System Note Provider Name and Address Organization Details Recorded Time 359410 Product containin g penicilli n (product) medicatio n Not available Not available Not available 12/04/20162015 79706 8001 SNOMED Comme nt: Recor ded 06/19 11:43 AM by Shira Orellana mith, Offic e Visit ; Promo lashell; Signi fican ce:*; Reaso n:Nelson seth gy; Not Available [facility] 7 21:53:33 275995 Substance with sulfonami de structure and antibacte rial mechanism of action (substanc e) medicatio n Not available Not available Not available 12/04/20162015 28029 8003 SNOMED Comme nt: Recor ded 06/19 11:43 AM by Shira Orellana mith, Offic e Visit ; Promo lashell; Signi fican ce:*; Reaso n:Nelson seth gy; Not Available [facility] 7 21:53:33 499522 Levoxyl medicatio n Not available Not available Not available 12/04/20162015 13038 2 RxNorm Comme nt: Recor ded 06/19 11:43 AM by Shira Orellana mith, Offic e Visit ; Promo lashell; Signi fican ce:*; Reaso n:Nelson seth gy; Not Available [facility] 7 21:53:34 131500 metoprolo l succinate medicatio n Not available Not available Not available 12/04/20162015 93417 4 RxNorm Comme nt: Recor ded 06/19 11:43 AM by Shira Orellana mith, Offic e Visit ; Promo lashell; Signi fican ce:*; Reaso n:Nelson seth gy; Not Available [facility] 7 21:53:34 876592 doxycycli ne Not available Not available Not available Not available 03/13/2023 3640 RxNorm Jaja valiente [place] - [facility] 3 09:43:38 377842 azithromy demetria medicatio n Not available Not available Not available 03/13/2023 30477 RxNorm Ehsanr Graham valiente [place] - [facility] 3 09:43:44 Medications Name [...] Updated DateTime 03/13/2023 167.64 cm 37.4 kg/m2 600863.43 g 9 Jaja Stevenson [facility] 03/13/2023 09:36:51 Date Recorded Body height Body mass index (BMI) Body weight Body temperature Provider Name and Address Organization Details Last Updated DateTime 03/31/2022 167.64 cm 37.4 kg/m2 330711.43 g 97 [degF] Rolando Aguilar [facility] 03/31/2022 11:26:19 Social History None recorded. Functional Status None recorded. Mental Status None recorded. Family History Nothing Reported. Medical History Condition Response Coronary Artery Disease N Dyslipidemia N Gout N Artificial Joints N Thyroid Problems N Depression N Lung Disease N Pacemaker N Anemia N Back Pain N Hearing Impairment N Anesthesia Complications N Heart Attack ([place]) N Headaches/Migraines N Deep Vein Thrombosis N [...] ICD10 Code Diagnosis IMO Codes Diagnosis Note [id number] Reyna Stewart PA-C [address] [address] 03/31/2022 10:53:54 04/04/2022 15:52:15 Pain of left ankle joint 8279266836 9911062 M25.572 Osteoarthr itis of knee 799124357 M17.12 [id number] Reyna Stewart PA-C KANE [address] [address] 03/13/2023 09:32:51 03/15/2023 10:10:09 Pain of left ankle joint 7892591092 9788527 M25.572 Osteoarthr itis of knee 835511560 M17.12 Acquired b ilateral pes planus 2205497894 3594726 M21.41 M21.42 Health Concerns Section Related Observation LastModified by Organization Detai ls LastModified Time None Recorded Concern Status LastModified by Organization Details LastModified Time None Recorded Advance Directives Directive None Recorded Payers None recorded. Notes Date Note Type Note Provider Name and Address Organization Details Recorded Time 03/31/2022 text/html This is a 66-year-old male who presents to clinic for evaluation [...] aside from aspiration. He is seeing a cooler deliverer per his report. He is a somewhat [...] an ankle specialist. Reyna Stewart PA-C [address] [place], [address], [facility] 03/31/2022 13:07:26 03/13/2023 text/html [...] part of the ankle. Reyna Stewart PA-C [address] [place], [address], [facility] 03/13/2023 16:09:39
--- OUTSIDE RECORDS SUMMARY | 2025-08-03 18:33 | XMS_ITS | Clinical Summary ---
Author Organization [facility] Address [address] [place] [address] Phone Care Team Providers Care Kettle Firer Name Role Phone Ezequiel Mena DO Primary Care Provider [phone] Allergies Active Allergy Reactions Criticality Noted Date Comments Albuterol 12/05/2021 Other reaction(s): Elevated blood pressure Azithromycin Diarrhea 12/27/2018 Cefuroxime 12/05/2021 Doxycycline Hyclate Rash with Blisters High 12/15/19 23 Levofloxacin 12/05/2021 Other reaction(s): difficulty breathing Metoprolol 11/27/2017 Penicillins 11/27/2017 Rifaximin 12/05/2021 Risperidone 12/05/2021 Sulfa (Sulfonamide Antibiotics) Rash with Blisters High 11/27/2017 Medications * This document contains information received from the source organization and may not represent a complete record from that organization. LORazepam (ATIVAN) 0.5 MG tablet lorazepam Take No date recorded No form recorded No frequency recorded No route recorded No set duration recorded No set duration amount recorded active No dosage strength recorded No dosage strength units of measure recorded Active propranoloL (INDERAL) 60 MG immediate release tablet Take 60 mg by mouth 2 (two) times a day. Active sucralfate (CARAFATE) 1 gram tablet sucralfate Take No date recorded No form recorded No frequency recorded No route recorded No set duration recorded No set duration amount recorded active No dosage strength recorded No dosage strength units of measure recorded Active alfuzosin (UROXATRAL) 10 mg 24 hr tablet Take 10 mg by mouth daily. Active aspirin 81 MG EC tablet Take 81 mg by mouth daily. Active betamethasone dipropionate 0.05 % cream 2 Active clotrimazole (LOTRIMIN) 1 % cream APPLY TOPICALLY 1-2 TIMES A DAY 2 Active famotidine (PEPCID) 20 MG tablet 2 Active fluticasone propionate (FLONASE) 50 mcg/actuation nasal spray 2 Active lisinopril (PRINIVIL,ZESTRI L) 40 MG tablet Take 40 mg by mouth. 1 Active QUEtiapine (SEROQUEL) 100 MG tablet nightly at bedtime. 2 Active QUEtiapine (SEROQUEL) 50 MG tablet daily. 1 Active rosuvastatin (CRESTOR) 20 MG tablet 2 Active traZODone (DESYREL) 50 MG tablet 1 Active diclofenac sodium (VOLTAREN) 1 % Gel 2 Active ALLERGY RELIEF, LORATADINE, 10 mg tablet 2 Active divalproex (DEPAKOTE ER) 500 MG ER 24 hr tablet 2 Active desoximetasone (TOPICORT) 0.25 % ointment Apply topically 2 (two) times a day. 100 g 3 2 Active Additional Information Patient not taking.Reported on 02/16/2025 mirtazapine (REMERON) 15 MG tabletIndication s:Pruritus Take 1 tablet (15 mg total) by mouth nightly at bedtime. 30 tablet 2 Active Additional Information Patient not taking.Reported on 02/16/2025 tacrolimus (PROTOPIC) 0.1 % ointmentIndicati ons:Pruritus Apply topically 2 (two) times a day. Use on legs for itching 60 g 1 2 Active Additional Information Patient not taking.Reported on 02/16/2025 dicyclomine (BENTYL) 20 mg tabletIndication s:Abdominal pain, epigastric Take 1 tablet (20 mg total) by mouth every 6 (six) hours. 120 tablet 1 2 Active triamcinolone acetonide 0.1 % cream Apply topically 2 (two) times a day for 7 days. Apply to the skin around the ear that is irritated 30 g 3 Active divalproex (DEPAKOTE ER) 500 MG ER 24 hr tablet Take 1,000 mg by mouth nightly at bedtime. Active apixaban (ELIQUIS) 5 mg tablet TAKE 2 TABLETS BY MOUTH TWO TIMES A DAY FOR 6 DAYS THEN DECREASE TO 1 TABLET TWO TIMES A DAY THEREAFTER 4 Active valsartan (DIOVAN) 80 MG tablet 4 Active Active Problems No known active problems Immunizations No known immunizations Family History Medical History Relation Comments Hearing loss Neg Hx Social History Tobacco Use Types Packs/Day Years Used Date Smoking Tobacco: Never Smokeless Tobacco: Never Tobacco Cessation:Counseling Given: Not Answered Alcohol Use Standard Drinks/Week Comments Never 0 [...] Orientation Straight 12/01/2021 11 :44 AM EST Last Filed Vital Signs Vital Sign Reading Time Taken Comments Blood Pressure 120/60 02/16/2025 2:12 PM EDT Pulse 67 02/16/2025 2:12 PM EDT Temperature 36.4 C (97.6 F) 03/07/2023 11:45 AM EDT Respiratory Rate 18 03/07/2023 3:10 PM EDT Oxygen Saturation 98% 02/16/2025 2:12 PM EDT Inhaled Oxygen Concentration - - Weight 104.1 kg (229 lb 8 oz) 02/16/2025 2:12 PM EDT Height 165.1 cm (5' 5 ) 02/16/2025 2:12 PM EDT Body Mass Index 38.19 02/16/2025 2:12 PM EDT Plan of Treatment Upcoming Encounters Date Type Department Care Team (Late st Contact Info) Description 08/12/2025 10:30 AM EST Appointment [facility] [address] [place] [address] Abrahan Gómez MD, PhD [address] [place] [address] [email or web address] 08/24/2025 3:00 PM EST Office Visit [facility] Endocrine, Diabetes, and Hypertension [address] [place] [address] Rell Barbosa MD [address] [facility] Endocrinology, Diabetes and Hypertension, [address] [place] [address] [email or web address] Health Maintenance Due Date Last Done Comments VALPROIC ACID (DEPAKENE) LEVEL 1955 HEPATITIS C SCREENING 1973 COLOGUARD 2000 COLONOSCOPY 2000 COLORECTAL CANCER SCREENING 2000 FIT TEST 2000 FOBT 2000 SIGMOIDOSCOPY 2000 VIRTUAL COLONOSCOPY 2000 ZOSTER VACCINES (1 of 2) 2005 PNEUMOCOCCAL VACCINES (50+ years) (2 of 2 - PCV) 02/07/2020 02/06/2019 CREATININE LEVEL 07/05/2023 07/05/2022, , 01/20/2022, Additional history exists INFLUENZA VACCINE (#1) 2025 , 08/20/2023, 08/04/2022, Additional history exists COVID-19 VACCINE (2024- season) 2025 01/25/2022, 09/14/2021, 02/15/2021, Additional history exists SCREENING FOR DIABETES 07/05/2025 07/05/2022 POTASSIUM LEVEL 01/13/2026 01/13/2025, 06/09, 01/20/2022, Additional history exists DEPRESSION SCREENING 02/16/2026 02/16/2025 LIPID PANEL 07/27/2028 07/27/2023, 07/05/2022 RSV VACCINE (1 - 1-dose 75+ series) 2030 Adult Td,Tdap Booster 11/21/2031 11/21/2021 SMOKING STATUS SCREENING (Once After 26 Yrs) Completed 02/16/2025 HEPATITIS A VACCINES Aged Out No long er eligible based on patient's age to complete this topic HIB VACCINES Aged Out No longer eligi ble based on patient's age to complete this topic MENINGOCOCCAL VACCINES (ACWY) Aged Out No longer eligible based on patient's age to complete this topic MENINGOCOCCAL VACCINES (B) Aged Out N o longer eligible based on patient's age to complete this topic Medical Devices Not on file Procedures Procedure Name Priority Date/Time Associated Diagnosis Comments EXTERNALLY RESULTED CHEMISTRY Routine 07/05/2022 from Last 3 Months or Most Recently Relevant to Health Maintenance Results * (ABNORMAL) EXTERNALLY RESULTED CHEMISTRY (07/05/2022) Sodium - External 139 135 - 145 mEq/L Comment:Done At [facility] Potassium - External 4.4 3.5 - 5.5 mmol/L Comment:Done At [facility] Chloride - External 104 96 - 110 mmol/L Comment:Done At [facility] CO2 - External 28 21 - 32 mmol/L Comment:Done At [facility] BUN - External 20 5 - 25 mg/dL Comment:Done At [facility] Creatinine, serum - External 0.73 0.7 - 1.3 mg/dL Comment:Done At [facility] BUN/Creatinine - External eGFR - External eGFR () - External Glucose - External 101(A) 70 - 100 mg/dL Comment:Done At [facility] Calcium - External 9.6 8.5 - 10.5 mg/dL Comment:Done At [facility] Phosphorus - External Magnesium - External Albumin - External 3.8 3.2 - 5.0 G/dL Comment:Done At [facility] Bilirubin, total - External 0.4 0.0 - 1.4 mg/dL Comment:Done At [facility] Bilirubin, direct - External Bilirubin (conjugated) - External Bilirubin, indirect - External Protein - External 7.1 6.0 - 8.0 G/dL Comment:Done At [facility] Alkaline Phosphatase - External 72 4 - 121 U/L Comment:Done At [facility] AST - External 18 10 - 42 U/L Comment:Done At [facility] ALT - External 33 10 - 60 U/L Comment:Done At [facility] Amylase - External Lipase (u/L) - External Cholesterol, total - External 167 0 - 200 mg/dL Comment:Done At [facility] LDL - External 109(A) 0 - 100 mg/dL Comment:Done At [facility] Triglycerides - External 203(A) 0 - 150 mg/dL Comment:Done At [facility] HDL - External 18(A) >=40 mg/dL Comment:Done At [facility] TIBC - External Iron - External Ferritin - External Folate - External Vitamin B12 - External CK - External Cotinine - External C-peptide (ng/mL) - External C-peptide (pmol/L) - External HCG, qualitative - External HCG, total - External NT-proBNP - External PTH - External TSH - External T3 - External Total T4 - External Free T4 - External Vitamin D 25(OH) - External AFP (Tumor Marker) - External Uric Acid - External PSA - External GGT - External Lactate, dehydrogenase - External Ammonia - External Vitamin A - External Alk phos: Intestinal Isoenzymes - External Alk phos: Bone Isoenzymes - External Alk phos: Liver Isoenzymes - External Alk phos: Placental Isoenzymes - External Alk phos: Macrohepatic Isoenzymes - External Cystatin C - External 07/05/2022 us Historical Provider LAB BLOOD ORDERABLES Alycia l Result from Last 3 Months or Most Recently Relevant to Health Maintenance Insurance MEDICARE PART A & B MEDICARE PART A & B [facility] MEDICARE REPLACEMENT MEDICARE PART A & B [facility] MEDICARE REPLACEMENT MEDICARE PART A & B MEDICARE PART A & B MEDICARE PART A & B [facility] MEDICARE REPLACEMENT MEDICARE PART A & B [facility] MEDICARE REPLACEMENT MEDICARE PART A & B [facility] MEDICARE REPLACEMENT MEDICARE PART A & B [facility] [employer] MEDICARE REPLACEMENT Care Teams Kettle Firer Relationship Specialty Start Date End Date Ezequiel Mena DO [address] [place] [address] [address] [place] [address] PCP - General Internal Medicine 09/29/22 Additional Source Comments The information contained in this document represents components of the legal health record. It is not the complete legal health record.[facility]
--- OUTSIDE RECORDS SUMMARY | 2025-08-03 18:33 | XMS_ITS | Clinical Summary ---
Author Organization [facility] Address [address] [place] [address] Care Team Providers Care Technical Asst Name Role Phone Unavailable Primary Care Provider [...] of 2) 2005 COVID-19 Vaccine ( - 2024-2 6 season) 2025 Influenza (#1) 2025 RSV (1 - 1-dose 75+ series) 2030 Abdominal Aorta Imaging Discontinued HPV Vaccine (No Doses Required) Completed Hep A Aged Out No longer eligi [...]
--- OUTSIDE RECORDS SUMMARY | 2025-08-03 18:33 | XMS_ITS | Patient Health Record ---
[facility] Address [address] [place] [address] Care Team Providers Care Poleyard Supervisor Name Role Phone Rajesh YOU, Ezequiel Primary Care Provider Shruti Quintero Unavailable [phone] Allergies Allergen (clinical drug ingredient) Drug/Non Drug Allergy documented on EMR Reaction Allergy Type Onset Date Status sulfamethoxazole / trimethoprim Bactrim Unknown Drug Allergy Active erythromycin Erythromycin Unknown Drug Allergy A ctive Reason For Referral No Information Medications Medication SIG (Take, Route, Frequency, Duration) Notes Start Date End Date Status Mupirocin 2 % External; Duration: 10 Days Active Depakote Active Ciprofloxacin HCl 500 MG Oral; Duration: 7 Days Active Seracal Active Azithromycin 250 MG Oral; Duration: 3 Days Active Crestor Active Amoxicillin-Pot Clavulanate 875-125 MG Oral; Duration: 7 Days Activ e Triamcinolone Acetonide 0.025 % External; Duration: 7 Days Active Clindamycin HCl 300 MG Oral; Duration: 7 Days Active Fluocinolone Acetonide 0.01 % Otic; Duration: 10 Days Acti ve Valsartan 80 MG Oral; Duration: 90 Days Active Propranolol HCl 60 MG Oral; Duration: 30 Days Active Ketoconazole 2 % 1 application Apply a thin layer to externally to feet, even between toes Twice a day; Duration: 30 days Active Eliquis 2.5 MG Oral; Duration: 30 Days Active Immunizations Vaccine Route Administration Date Status Comme nts Influenza Unknown 07/29/2024 Administered Social History Tobacco Use: Social History Observation Description Date Details (start date - stop date) Never Smoker NA - NA Tobacco use other than smoking: Question Answer Notes Are you an other tobacco user? No Tobacco Control (Standard) Question Answer Notes Tobacco use: Nonsmoker Additional Findings: Tobacco non-user Current no nsmoker AUDIT-C (Standard) Question Answer Notes Did you have a drink containing alcohol in the p ast year? No Points 0 Interpretation Negative Vital Signs Blood pressure diastolic 80 mm Hg 07/21/2025 Height 5ft 6in in 07/21/2025 Blood pressure systolic 130 mm Hg 07/21/2025 Weight 233 lbs 07/21/2025 BMI 37.6 kg/m2 07/21/2025 Encounters Encounter Location Date Provider Diagnosis [facility] [address] 07/21/2025 Shruti Black Tinea pedis of both feet B35.3 and Ingrown nail L60.0 [facility] [address] [place] [address] 07/07/2025 Shruti Black Assessments Encounter Date Diagnosis (ICD Code) Assessment Notes Treatment Notes Treatment Clinical Notes Section Notes 07/21/2025 Ingrown nail (ICD-10 - L60.0) 07/21/2025 Tinea pedis of both feet (ICD-10 - B35.3) Patient Educated with: ATHELETE .pdf (ATHELETE .pdf) Plan Of Treatment No Information Insurance Providers Payer Name Payer Address Payer Phone Subscriber Number Group Number Insured Name Patient Relationship to Insured Coverage Start Date Coverage End Date [facility] [employer] Claims [place] [id number] GUEVARA Aguero [id number] Imer Bennett Self - patient is the insured Medical (General) History Medical History History ICD Code Anxiety Depression High Blood Pressure Stomach Ulcer Thyroid Ulcer Surgical History Surgery Date(Month/Year) knee replacement right knee Hospitalization History Reason Date(Month/Year) infection in mouth 08/01
--- OUTSIDE RECORDS SUMMARY | 2025-08-03 18:33 | XMS_ITS | Data Portability ---
Author Organization [place] - [facility], Allergy Address [address] [address] Care Team Providers Care Business Support Specialist Name Role Phone MIRIAM BUCHANAN Primary Care [...] a CT maxilloface with contrast 10/24/2024 at [facility] which was personally reviewed. CT did [...] instructed to call the office for reevaluation. [email or web address] Not available 01/01/2025 16:49:50 04/03/2025 04/03/2025 1. Facial swelli ng The left parotid gland enlargement observed through imaging measures approximately 7 cm with no evidence of mass. A conservative approach is warranted as no interventions are necessary. [email or web address] Not available 04/03/2025 12:59:52 06/26/2025 06/26/2025 Has multiple concerns and has seen multiple medical record clerk for this. He is concerned about recurring infections throughout the head and neck and the rest of his body., And hes been between [facility] and [place] for his care. 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 Primarily he's had recurring dental infections, specifically of tooth 11. He says he has multiple MRI and Xrays for this. Today i don't see any oral purulence either Nasal endoscopy didn't reveal any nasal purulence or polyps today. He notes some nasal itching but i dont see obvious vestibulitis. Either way i think we can prophylatically treat him for this. 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 I do want him to talk with his neurologist who I will see send a message to to see if he has some insight. -Follow up with the dental team for control of potential dental infections -Start mupirocin ointment to nasal tip BID for 14 days -RV with PA team PRN For parotid: - Ensure adequate hydration - Warm compress and firm massage to the area - Use of sialagogue frequently throughout the day - Antibiotic and steroid therapy as necessary if noted purulence or tenderness of the gland - Can consider sialadenoscopy, likely would be done in [place], versus potential gland excision - Return visit: [email or web address] Not available 06/26/2025 13:56:55 Plan of Treatment Reminders Order Date Submit Date Provider Last Modified By Organization Details Last Modified Time Details Appointments None recorded. Lab None recorded. Referral oral surgery/de ntist referral 2024 025 [facility] [address] [place] [address], [address], 08:54:37 Procedures None recorded. Surgeries None recorded. Imaging None recorded. Medication Orders mupirocin 2 % topical ointment 2024 025 [facility], [address] [facility], [address], [place], [address], 13:49:31 Patient TargetsNo targets recorded. Patient Instructions Encounter Date Encounter Id Patient Instructions Last Modified By Organization Details Last Modified Time 04/03/2025 [id number] Please note: Parts of this encounter note have been generated by AI based on audio conversation. Patient consent was required prior to utilizing this technology. Content review was required prior to finalizing the note. [email or web address] Not available 04/03/2025 10:04:29 Reason for Referral Oral Surgery/dentist Referra l for Infection of tooth Referring Physician: Neri Garcia, Otolaryngology, Encounter Date: 01/01/2025 Results Created Date Observation Date Name Description Value Unit Range Abnormal Flag Note LastModifiedBy Organization Detail LastModifiedTime 11/25/19 audio gram No observ ation record ed. BARCODE Not Available 2024 11:27:09 01/03/20 25 10/24/2024 CT, maxil lofac ial, w/ contr ast No observ ation record ed. [email or web address] Not Available 12/07 13:45:34 02/13/20 25 02/06/2025 US, head + neck No observ ation record ed. [email or web address] [facility] [place] [address] [facility] [address], [place], [address], 02/17/2025 10:40:52 Result Notes None recorded. Problems Name Problem SNOMED Code Status Onset Date Resolution Date Notes Provider Name and Address Organization Details Recorded Time Deviated nasal septum 755341909 Active 2015 Deviated nasal septum; Note: Date Diagnosed : 09/15/2016 3:35 PM (J34.2) Not Available [facility] 4 02:25:38 Hypertrop hy of nasal turbinate s 03143789 Active 2015 Hypertrop hy of nasal turbinate s; Note: Date Diagnosed : 09/15/2016 3:40 PM (J34.3) Not Available [facility] 4 02:25:22 Nasal congestio n 21085245 Active 2015 Nasal congestio n; Note: Date Diagnosed : 09/15/2016 3:35 PM (R09.81) Not Available [facility] 4 02:25:29 Impacted cerumen of bilateral ears 09701186973 78665 Active 2017 Impacted cerumen, bilateral ; Note: Date Diagnosed : 8 11:12 AM (H61.23) Not Available [facility] 4 02:25:33 Tinnitus of left ear 43215943229 06 Active 2017 Tinnitus, left ear; Note: Date Diagnosed : 8 11:28 AM (H93.12) Not Available [facility] 4 02:25:30 Sensorine ural hearing loss of bilateral ears 486711620 Active 2017 Sensorine ural hearing loss, bilateral ; Note: Date Diagnosed : 8 11:28 AM (H90.3) Not Available [facility] 4 02:25:42 Allergic rhinitis 38694487 Active 2017 Perennial allergic rhinitis; Note: Date Diagnosed : 09/09/2018 12:47 PM (J30.89) Not Available [facility] 4 02:25:32 Pain of left temporoma ndibular joint 44739019453 054720 Active 2018 Arthralgi a of left temporoma ndibular joint; Note: Date Diagnosed : 11/05/2018 3:34 PM (M26.622) Not Available [facility] 4 02:25:24 Otalgia of left ear 1946218168 Active 2018 Otalgia, left ear; Note: Date Diagnosed : 11/05/2018 3:34 PM (H92.02) Not Available [facility] 4 02:25:20 Hemoptysi s 74387287 Active 2018 Hemoptysi s; Note: Date Diagnosed : 11/22/2018 12:51 PM (R04.2) Not Available [facility] 4 02:25:36 Bilateral tinnitus 53514427572 02 Active 2018 Tinnitus, bilateral ; Note: Date Diagnosed : 07/09/2019 3:39 PM (H93.13) Not Available [facility] 4 02:25:38 Obstructi ve sleep apnea syndrome 78287711 Active 2018 Obstructi ve sleep apnea (adult) (pediatri c); Note: Date Diagnosed : 07/09/2019 3:39 PM (G47.33) Not Available [facility] 4 02:25:29 Non-toxic uninodula r goiter 532046578 Active 2018 Nontoxic uninodula r goiter; Note: Date Diagnosed : 9 3:26 PM (E04.1) Not Available [facility] 4 02:25:39 Impacted cerumen in left ear 65764378417 23816 Active 2019 Impacted cerumen, left ear; Note: Date Diagnosed : 05/03/2020 10:11 AM (H61.22) Not Available [facility] 4 02:25:38 Bleeding from nose 539862189 Active 2024 Binta valiente [place] - [facility] 5 10:27:14 Nasal mucosa dry 87912404 Active 2024 Binta valiente [place] - [facility] 5 10:27:27 Infection of tooth 836326642 Active 2024 NERI GARCIA PA-C [address], [place], [address] , [place] - [facility] 5 16:39:52 Pain in face 98343933 Active 2024 NERI GARCIA PA-C [address], [place], [address] , [place] - [facility] 16:39:57 Atypical facial pain 89436019 Active 2024 Wellington Segal DO [address], [place], [address] , [place] - [facility] 5 13:57:01 Anterior epistaxis 395086047 Active 2024 NERI GARCIA PA-C [address], [place], [place], [address] , [place] - [facility] 16:40:20 Parotitis 51480428 Active 2024 WELLINGTON FORMAN MD [address], [place], [address] , [place] - [facility] 5 09:58:15 Nasal vestibuli tis 67761347 Active 2024 Wellington Segal DO [address], [place], [address] , [place] - [facility] 13:49:00 Problem Notes None recorded. Procedures Surgical History Date Name Laterality Status Provider Name and Address Organization Details Recorded Time 06/26/2025 Nasal Endo DDx_DHL completed Wellington Segal, DO [address] [facility] [address], [place], [address], [facility] 06/26/2025 13:51:10 01/01/2025 FOL_DP completed NERI GARCIA, GUEVARA-C [address] [facility],[address], [address], [facility] 01/01/2025 16:45:05 11/25/2024 Comp Audio with Tymps - 61940 & 44416 completed LANDON PULLIAM, AuD [address] [facility] [address], [place], [address], [facility] 11/25/2024 09:59:04 Imaging Results None recorded. Procedure Notes None recorded. Medical Equipment None Reported. Allergies Allergen ID Allergen Name Allergen Category Reaction Reaction Severity Criticality Documentation Date Start Date Code Code System Note Provider Name and Address Organization Details Recorded Time 30767 levofloxa demetria medicatio n other Not available Not available 02/19/2024 87079 RxNorm React ion: unkno wn, unspe cifie d;; Not Available [facility] 4 00:55:46 78304 penicilli n V potassium medicatio n other Not available Not available 02/19/2024 09252 5 RxNorm React ion: unkno wn, unspe cifie d;; Not Available [facility] 4 00:55:48 12736 Substance with sulfonami de structure and antibacte rial mechanism of action (substanc e) medicatio n other Not available Not available 02/19/2024 32085 8003 SNOMED React ion: unkno wn, unspe cifie d;; Not Available [facility] 4 00:55:54 Medications Name Sig Start Date Stop Date Status Note LastModified by Organization Details LastModified Time quetiapin e 25 mg tablet 11/25 completed Medicati on ID: [id number] D uration Value: 90 Brand Name: quetiapi ne Send Method: E-Prescr ibed Sub s Allowed: subs OK Medic ationGen ericName : quetiapi ne Not Available Not Available Not Available amoxicill in 500 mg capsule 11/25 completed Not Available Not Available Not Available neomycin- polymyxin -hydrocor t 3.5 mg/mL-10, 000 unit/mL-1 % ear solution 05/03 completed Medicati on ID: [id number] D uration Value: 10 Reason: () Brand Name: neomycin -polymyx in-HC Se nd Method: E-Prescr ibed Sub s Allowed: subs OK Medic ationGen ericName : neomycin -polymyx in-HC Not Available Not Available Not Available acetic acid 2 % ear solution 11/25 completed Not Available Not Available Not Available prednison e 10 mg tablet 12/08 completed Medicati on ID: [id number] D uration Value: 5 Brand Name: predniso ne Send Method: E-Prescr ibed Sub s Allowed: subs OK Medic ationGen ericName : predniso ne Not Available Not Available Not Available doxycycli ne hyclate 100 mg capsule 09/15 completed Medicati on ID: [id number] D uration Value: 10 Brand Name: doxycycl ine hyclate Send Method: E-Prescr ibed Sub s Allowed: subs OK Medic ationGen ericName : doxycycl ine hyclate Not Available Not Available Not Available cefuroxim e axetil 250 mg tablet 05/03 completed Medicati on ID: [id number] D uration Value: 10 Reason: () Brand Name: cefuroxi me axetil S end Method: E-Prescr ibed Sub s Allowed: subs OK Medic ationGen ericName : cefuroxi me axetil Not Available Not Available Not Available clindamyc in HCl 300 mg capsule 11/25 completed Not Available Not Available Not Available Vitamin C 500 mg tablet 2018 active Medicati on ID: [id number] D uration Value: 100 Brand Name: Vitamin [...] mg tablet 05/03 completed Medicati on ID: [id number] P karinajanay d By Name: Mateusz Dowell nd Name: clonazep am Send Method: E-Prescr ibed Sub s Allowed: subs OK Speci al Instruct ion: Take 1 tablet 1 hour prior to MRI, may take second one if needed M tatumjuwan nGdonna Name: clonazep am Not Available Not Available Not Available clindamyc in HCl 150 mg capsule active Not Available Not Available Not Available valsartan 80 mg tablet active Not Available Not Available Not Available Zyrtec 10 mg tablet 2019 active Medicati on ID: [id number] D uration Value: 90 Prescri bed By Name: Mateusz Le nd Name: Zyrtec S end Method: E-Prescr ibed Sub s Allowed: subs OK Speci al Instruct ion: TAKE 1 TABLET BY MOUTH EVERY DAY Medi cationGe nericNam e: Zyrtec Not Available Not Available Not Available propranol ol 60 mg tablet TAKE A 1/2 TAB BY MOUTH TWICE A DAY BY MOUTH active Not Available Not Available No t Available quetiapin e 100 mg tablet 11/29 completed Medicati on ID: [id number] D uration Value: 30 Reason: () Brand Name: quetiapi ne Send Method: E-Prescr ibed Sub s Allowed: subs OK Medic ationGen ericName : quetiapi ne Not Available Not Available Not Available alprazola m 0.5 mg tablet 05/03 completed Medicati on ID: [id number] D uration Value: 1 Reason: () Brand Name: alprazol am Send Method: E-Prescr ibed Sub s Allowed: subs OK Medic ationGen ericName : alprazol am Not Available Not Available Not Available lorazepam 0.5 mg tablet 2018 active Medicati on ID: [id number] D uration Value: 30 Brand Name: lorazepa m Send Method: E-Prescr ibed Sub s Allowed: subs OK Medic ationGen ericName : lorazepa m Not Available Not Available Not Available trazodone 100 mg tablet 11/25 completed Not Available Not Available Not Available Ponaris nasal solution 2 puff into both nostrils 11/25 completed Medicati on ID: [id number] B rand Name: Nadeem Send Method: E-Prescr ibed Sub s Allowed: subs OK Medic ationGen ericName : Ponaris Not Available Not Available Not Available triamcino lone acetonide 0.1 % topical ointment 11/25 completed Not Available Not Available Not Available clotrimaz ole-betam ethasone 1 %-0.05 % topical cream 12/08 completed Medicati on ID: [id number] D uration Value: 15 Brand Name: clotrima zole-bet amethaso ne Send Method: E-Prescr ibed Sub s Allowed: subs OK Medic ationGen ericName : clotrima zole-bet amethaso ne Not Available Not Available Not Available divalproe x ER 500 mg tablet,ex tended release 24 hr active Not Available Not Available Not Available omeprazol e 20 mg capsule,d elayed release 11/25 completed Medicati on ID: [id number] D uration Value: 30 Brand Name: omeprazo le Send Method: E-Prescr ibed Sub s Allowed: subs OK Medic ationGen ericName : omeprazo le Not Available Not Available Not Available mupirocin 2 % topical ointment APPLY A SMALL AMOUNT TO THE AFFECTED AREA BY TOPICAL ROUTE 3 TIMES PER DAY - apply to nose 2024 active Not Available Not Available Not Avai lable gabapenti n 100 mg capsule 12/08 completed Medicati on ID: [id number] D uration Value: 90 Brand Name: gabapent in Send Method: E-Prescr ibed Sub s Allowed: subs OK Medic ationGen ericName : gabapent in Not Available Not Available Not Available lorazepam 1 mg tablet active Not Available Not Available Not Available azelastin e 137 mcg (0.1 %) nasal spray 2 spray into both nostrils 12/08 completed Medicati on ID: [id number] P rescribe d By Name: Mateusz Le nd Name: [...] mg capsule 05/03 completed Medicati on ID: [id number] D uration Value: 30 Reason: () Brand Name: dicyclom ine Send Method: E-Prescr ibed Sub s Allowed: subs OK Medic ationGen ericName : dicyclom ine Not Available Not Available Not Available ipratropi um bromide 21 mcg (0.03 %) nasal spray 2 spray into both nostrils 05/03 completed Medicati on ID: [id number] P rescribe d By Name: Mateusz Le nd Name: ipratrop [...] gram-elec trolytes 22.72 gram-6.72 g-5.84 g powdr for soln 04/03 completed Medicati on ID: [id number] D uration Value: 1 Brand Name: peg 3350-charlette ctrolyte s Send Method: E-Prescr ibed Sub s Allowed: subs OK Medic ationGen ericName : peg 3350-charlette ctrolyte s Not Available Not Available Not Available FeroSul 325 mg (65 mg iron) tablet 11/25 completed Medicati on ID: [id number] D uration Value: 100 Brand Name: ferrous sulfate Send Method: E-Prescr ibed Sub s Allowed: subs OK Medic ationGen ericName : ferrous sulfate Not Available Not Available Not Available diclofena c 1 % topical gel 05/03 completed Medicati on ID: [id number] D uration Value: 14 Reason: () Brand Name: diclofen ac sodium S end Method: E-Prescr ibed Sub s Allowed: subs OK Medic ationGen ericName : diclofen ac sodium Not Available Not Available Not Available GaviLyte- G 236 gram-22.7 4 gram-6.74 gram-5.86 gram oral solution 05/03 completed Medicati on ID: [id number] D uration Value: 1 Reason: () Brand Name: GaviLyte -G Send Method: E-Prescr ibed Sub s Allowed: subs OK Medic ationGen ericName : GaviLyte -G Not Available Not Available Not Available Xifaxan 550 mg tablet 12/08 completed Medicati on ID: [id number] D uration Value: 14 Brand Name: Xifaxan Send Method: E-Prescr ibed Sub s Allowed: subs OK Medic ationGen ericName : Xifaxan Not Available Not Available Not Available sodium,po tassium,m ag sulfates 17.5 gram-3.13 gram-1.6 gram oral soln active Not Available Not Available Not Available naproxen sodium 220 mg capsule 2 capsule by mouth 2018 active Medicati on ID: [id number] P rescribe d By Name: Mateusz Dowell [...] by mouth 11/25 completed Medicati on ID: [id number] D uration Value: 30 Brand Name: Radha [...] Updated DateTime 11/25/2024 167.64 cm 36.8 kg/m2 225614.06 g Sienna Ortiz [place] - [facility] 11/25/2024 09:17:02 Date Recorded Body height Body mass index (BMI) Body weight Provider Name and Address Organization Details Last Updated DateTime 01/01/2025 167.64 cm 36.8 kg/m2 010865.06 g Miguel Wilson [place] - [facility] 01/01/2025 14:36:35 Date Recorded Body height Provider Name an d Address Organization Details Last Updated DateTime 04/03/2025 167.64 cm ALEXUS THIBODEAUX [place] - [facility] [facility] 04/03/2025 09:22:31 Date Recorded Body height Body mass index (BMI) Body weight Provider Name and Address Organization Details Last Updated DateTime 06/26/2025 167.64 cm 35.8 kg/m2 410534.51 g Jenna Abebe [place] - [facility] 06/26/2025 13:22:15 Social History None recorded. Functional Status None recorded. Mental Status None recorded. Family History Nothing Reported. Medical History No medical history recorded. Past Encounters Encounter ID Performer Location Encounter Start Date Encounter Closed Date Diagnosis/Indication Diagnosis SNOMED-CT Code Diagnosis ICD10 Code Diagnosis IMO Codes Diagnosis Note [id number] BINTA BADILLO PA-C [facility] [address] [address] 11/25/2024 09:05:46 11/25/2024 10:17:30 Sensorineural hearing loss of bilateral ears 706000605 H90.3 Audiologic al evaluation results: Right ear: Mild high frequency sensorineu ral hearing loss with excellent word recognitio n. Left ear: Moderately -severe high frequency sensorineu ral hearing loss with excellent word recognitio n. Tympanomet ry: Right Ear:Type A Left Ear:Type A Bleeding from nose 30826 6005 R04.0 Nasal mucosa dry 5431766 2 J34.89 [id number] NERI GARCIA PA-C [facility] [address] [address] 01/01/2025 14:23:08 01/01/2025 15:19:01 Infection of tooth 746572253 K04.7 Atypical facial pain 713 82747 G50.1 Anterior epistaxis 86657 4002 R04.0 [id number] WELLINGTON FORMAN MD [facility] [address] [address] 04/03/2025 09:21:21 04/03/2025 10:04:28 Parotitis 41442413 K11.20 [id number] Wellington Segal DO [facility] [address] [address] 06/26/2025 13:14:09 06/26/2025 13:56:07 Parotitis 01476264 K11.20 35665 Nasal vestibulitis 02169 000 J34.89 539596 Atypical facial pain 713 33118 G50.1 [id number] Health Concerns Section Related Observation LastModified by Organization Detai ls LastModified Time None Recorded Concern Status LastModified by Organization Details LastModified Time None Recorded Advance Directives Directive None Recorded Payers Insurance Date Sequence Insurance Name Policy Number Policy Michelle Covered Member ID Michelle Member ID Guarantor Name 12/24/2024 1 [facility] - DOS ON OR AFTER 2023 - HALFWAY OPTIONS AND ONE CARE (MEDICARE REPLACEMENT/ADV ANTAGE - PPO) Imer Donald [id number] Imer Donald 07/06/2025 1 [facility] - DOS ON OR AFTER 2023 - DUAL ELIGIBLE - HALFWAY OPTIONS AND ONE CARE (MEDICARE REPLACEMENT/ADV ANTAGE - HMO) Imer Donald [id number] Imer Donald Notes Date Note Type Note Provider Name and Address Organization Details Recorded Time 5 text/html ROS as noted in the [facility] 69 year old male presents for evaluation [...] ongoing for years. 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 PALAK BUCHANAN MD [address] [place] [address], [address], [facility] 11/25/2024 21:43:24 5 text/html ROS as noted in the HPI 69-year-old male presents for reevaluation of facial [...] resolved. He reports recent CT scan at [facility]. WELLINGTON FORMAN MD [address] [facility] [address], [place], [address], [place] - [facility] 01/01/2025 17:12:27 5 text/html parotid mass 02/06/2025 [facility] ultrasound parotid Left parotid measures 7 x 2.8 x 3.6 cm Right parotid measures 6.4 x 2.2 x 2.8 cm with normal echotexture Multiple lymph nodes within bilateral neck with reniform shape and echogenic hilum. Largest lymph node is in the left mid neck measuring 19 x 3 x 10 mm PV 01/01/25 Neri - left facial swelling. CT maxilloface with contrast 10/24/2024 at [facility] did not show any evidence of sinusitis. Incidental finding of right mucous retention cyst in the right maxillary sinus. There is also a small periapical lucency in the left cuspid differential including apical periodontitis, small periapical abscess, or cyst. Recommended oral surgery followup The patient is a 69-year-old male presenting with facial swelling on the left side of his face. WELLINGTON FORMAN MD [address] [facility] [address], [place], [address], [place] - [facility] 04/03/2025 13:01:10 5 text/html ROS as noted in the HPI Interval history: Had multiple recurrences of swelling and infection. Went to see dentist to have tooth number 11 removed. The dentist removed multiple teeth but not 11. Had [address] scan shows removal of left maxillary canine with empty socket with some soft tissue edema for potential cellulitis. Mildly prominent submandibular lymph nodes on both sides. Likely reactive. This is from 05/28/2025. Previously seen by Dr. Forman and Neri 02/06/2025 [facility] ultrasound parotidLeft parotid measures 7 x 2.8 x 3.6 cmRight parotid measures 6.4 x 2.2 x 2.8 cm with normal echotextureMultiple lymph nodes within bilateral neck with reniform shape and echogenic hilum. Largest lymph node is in the left mid neck measuring 19 x 3 x 10 mm PV 01/01/25 Neri - left facial swelling. CT maxilloface with contrast 10/24/2024 at [facility] did not show any evidence of sinusitis. Incidental finding of right mucous retention cyst in the right maxillary sinus. There is also a small periapical lucency in the left cuspid differential including apical periodontitis, small periapical abscess, or cyst. Recommended oral surgery followup The patient is a 69-year-old male presenting with facial swelling on the left side of his face. Wellington Segal, [address] [facility] [address], [place], [address], [facility] 06/26/2025 13:57:14
--- OUTSIDE RECORDS SUMMARY | 2025-08-03 18:33 | XMS_ITS | Clinical Summary ---
Author Organization [facility] Address [address] [id number] Care Team Providers Care Dress Finisher Name Role Phone Ezequiel Mena DO Primary Care Provider [phone] Allergies Active Allergy Reactions Criticality Noted Date [...] 70 07/09/2024 10:01 AM EDT Temperature 36.5 C (97.7 F) 07/09/2024 10:01 AM EDT Respiratory Rate - - Oxygen [...] 2020 02/06/2019, 05/07/2009 COVID-19 Vaccine (3 - 2024-2 6 season) 2025 02/15/2021, 01/25/2021 Influenza Vaccine (#1) 2025 08/06/2018 RSV Adult > 60+ Yrs or (1 - 1-dose 75+ series) 2030 Hepatitis B Vaccines Aged Out No long er eligible based on patient's age to complete this topic RSV Ped < 20 months Aged Out No longe r eligible based on patient's age to complete this topic Care Teams Dress Finisher Relationship Specialty Start Date End Date Ezequiel Mena DO [address] [place] [address] [address] [place] [address] PCP - General Internal Medicine 05/01/24
--- OUTSIDE RECORDS SUMMARY | 2025-08-03 18:33 | XMS_ITS | Encounter Summary ---
Author Organization [facility] Address [address] [place] [address] Phone Care Team Providers Care Supercalender Operator Helper Name Role Phone Vickileida Ezequiel Primary Care Provider [phone] Encounter Details Date Type Department Care Team (Late st Contact Info) Description 12/14/[address] [facility] Emergency Department [address] [place] [address] Juarez Glover MD [address] [place] [address] [email or web address] Social History Tobacco Use Types Packs/Day Years [...] AM EST documented as of this encounter Functional Status * Calculated C-SSRS Risk Score (Lifetime/Recent) Answer Date of Assessment Author No Risk Indicated 12/14/2022 3:21 PM Vivek Grant RN * [place] Suicide Severity Rating Scale (Screener/Recent Self-Report) Question Answer Date of Assessment Author 1. Wish to be (Past 1 Month) No 12/14/2022 3:21 PM Vivek Avalos, DAVID 2. Non-Specific Active Suicidal Thoughts (Past 1 Month) No 12/14/2022 3:21 PM Vivek Avalos, RN 6. Suicidal Behavior (Lifetime) No 12/14/2022 3:21 PM Vivek Avalos, RN documented as of this encounter Plan of Treatment Upcoming Encounters Date Type Department Care Team (Late st Contact Info) Description 08/12/2025 10:30 AM EST Appointment [facility] [address] [place] [address] Abrahan Gómez MD, PhD [address] [place] [address] [email or web address] 08/24/2025 3:00 PM EST Office Visit [facility] Endocrine, Diabetes, and Hypertension [address] [address] Rell Barbosa MD 221 [facility] Endocrinology, Diabetes and Hypertension, [address] [place] [address] [email or web address] documented as of this encounter Visit Diagnoses Not on filedocumented in this encounter Care Teams Supercalender Operator Helper Relationship Specialty Start Date End Date Ezequiel Mena DO [address] [place] [address] 18 [place] [address] PCP - General Internal Medicine 09/29/22 documented as of this encounter Additional Source Comments The information contained in this document represents components of the legal health record. It is not the complete legal health record.[facility]
--- OUTSIDE RECORDS SUMMARY | 2025-08-03 18:33 | XMS_ITS | Encounter Summary ---
Author Organization [facility] Address [address] [place] [address] Phone Care Team Providers Care Gas Mask Inspector Name Role Phone Jack Perez MD Primary Care Provid er Ezequiel Mena DO Primary Care Provider [phone] Encounter Details Date Type Department Care Team (Late st Contact Info) Description 12/05/2021 Ophth Exam [facility] [place] [facility] [address] [place] [address] Clinton Hammond MD, MPH [address] [place] [address] [email or web address] Social History Tobacco Use Types Packs/Day Years [...] Date of Assessment Author No Risk Indicated 12/05/2021 9:41 AM EST Duy Sharif RN * [place] Suicide Severity Rating Scale (Screener/Recent Self-Report) Question Answer Date of Assessment Author 1. Wish to be (Past 1 Month) No 12/05/2021 9:41 AM EST Duy Sharif am, RN 2. Non-Specific Active Suici mere Thoughts (Past 1 Month) No 12/05/2021 9:41 AM Duy Gonzalez RN 6. Suicidal Behavior (Lifetime) No 9:41 AM Duy Gonzalez, RN documented as of this encounter Plan of Treatment Upcoming Encounters Date Type Department Care Team (Late st Contact Info) Description 08/12/2025 10:30 AM EST Appointment [facility] [address] [place] [address] Abrahan Gómez MD, PhD [address] [place] [address] [email or web address] 08/24/2025 3:00 PM EST Office Visit [facility] Endocrine, Diabetes, and Hypertension [address] [address] Rell Barbosa MD 221 [facility] Endocrinology, Diabetes and Hypertension, [address] [place] [address] [email or web address] documented as of this encounter Visit Diagnoses Not on filedocumented in this encounter Care Teams Gas Mask Inspector Relationship Specialty Start Date End Date Jack Perez MD PCP - General 04/07/14 09/28/22 Ezequiel Mena DO [address] [place] [address] 18 [place] [address] PCP - General Internal Medicine 09/29/22 documented as of this encounter Additional Source Comments The information contained in this document represents components of the legal health record. It is not the complete legal health record.[facility]
== END 2025-08-03 15:19 | disposition home or self-care (01) ==
LOC: HO.HKASLDS 15:18
PROVIDERS: PCP Internal Medicine; Visit Provider Internal Medicine Hypertension Specialist
DX: E87.1 Hypo-osmolality and hyponatremia (principal)
CPT/HCPCS: 36415; 80048

== ENCOUNTER 2025-08-05 10:43 | Outpatient (AMB) | payer OTHER, SELFPAY ==
--- OUTSIDE RECORDS SUMMARY | 2024-07-09 09:29 | XMS_ITS | Encounter Summary ---
[facility] Organization [facility] Address [address] [place] [address] Care Team Providers Care Broadcast Producer Name Role Phone Ezequiel Mena DO Primary Care Provider [phone] Encounter Details Date Type Department Care Team ([facility] st Contact Info) Description 07/09/2024 9:29 AM EDT Hospital Encounter TH HISTORIC ENCOUNTERS EASTERN CONVERSION ONLY Zia Dunn MD [address] [place] [phone] Social History Tobacco Use Types Packs/Day Years [...] is a 68 y.o. male. HPI: 68-year-old South [place]ese speaking man, who initially had pulmonary embolism [...] thrombosis (HCC) RECURRENT DEEP VEIN THROMBOSIS 68-year-old [place]ese speaking man, who has multiple medical issues, [...] Description 07/29/2026 9:30 AM EDT Office Visit [facility] Hematology Oncology [address] [place] [phone] Zia Dunn MD [address] [place] [address] documented as of this encounter Procedures Procedure [...] on filedocumented in this encounter Care Teams Broadcast Producer Relationship Specialty Start Date End Date Ezequiel Mena DO [address] [place] [phone] PCP - General Internal Medicine 12/27/20 documented as of this encounter
[2025-08-05 10:54] VITALS: BP 130/74; PULSE 68; O2SAT 96; BMI 37.1
--- NOTE | 2025-08-05 10:54 | HO.NEPHOV_ITS ---
Vital Signs 08/05/25 10:54 Height 5 ft 6 in Weight 230 lb BMI 37.1 BP 130/74 Blood Pressure Location Lt brachial Position Sitting Pulse 68 Pulse Source Pulse Oximeter Pulse Oximetry (%) 96 Oxygen Delivery Method Room Air Intake Visit Reasons: 6mon follow-up w/labs confirmed Manager Wellness Required: No Accompanied by: Self / Same As Patient Allergies azithromycin Allergy (Unknown, Verified 08/05/25 10:56) Rash levofloxacin Allergy (Unknown, Verified 08/05/25 10:56) rash metoprolol Allergy (Unknown, Verified 08/05/25 10:56) Rash rifaximin (Xifaxan) Allergy (Unknown, Verified 08/05/25 10:56) Rash risperidone Allergy (Unknown, Verified 08/05/25 10:56) Rash Sulfacet-R Allergy (Unknown, Uncoded 01/28/25 08:43) Rash Medication List - Last Reconciled 08/05/25 by Cyrus Messina MD apixaban (Eliquis) 2.5 mg PO BID divalproex ER 500 mg PO TID fluocinolone acetonide oil 0.01% drps otic (ears) PRN lorazepam 1 mg PO DAILY PRN propranolol 20 mg PO BID quetiapine (Seroquel) 100 - 200 mg PO DAILY rosuvastatin 20 mg PO BEDTIME trazodone 50 mg PO BEDTIME PRN valsartan 80 mg PO DAILY HPI Comments Details: 69-year-old man with a history of hypertension has been referred for evaluation of hyponatremia. Few months ago he was hospitalized. He had diarrhea and was diagnosed with hypovolemic hyponatremia. Serum sodium was 121 at time admission. Subsequently improved to 131. Recent sodium was 132 and hence the referral. Of note he is on Divalproex and lisinopril. He admits to drinking plenty of water. No specific urinary complaints. No polyuria polydipsia. History of renal cyst He has been followed by Dr. Durant. Underwent cystoscopy which was essentially unremarkable. 01/28/25 Here for follow up Seen 2 weeks ago by my associate for flank pain Renal USG was done .Results reviewed Interpretor was used Having issues with dentition. On antibiotics 08/05/25 - The patient is a 69-year-old male presenting with low sodium levels and hypertension management. - History of benign prostatic hyperplasia with urinary pain. - Intestinal polyps confirmed by recent testing. - Renal cysts monitored as benign. - Improved blood pressure and sodium levels with medication changes. Complaints ofLUQ pain waiting for CT scan [facility] Medical History GERD (gastroesophageal reflux disease) Polyp of colon Anxiety and depression Stenosis, cervical spine HLD (hyperlipidemia) H/O bipolar disorder Insomnia HTN (hypertension) Microscopic hematuria (~2016) Surgical History History of total knee replacement Family History Father CAD (coronary artery disease) Brother CAD (coronary artery disease) Physical Exam Vital Signs: Last Vital Signs Pulse 68 08/05/25 10:54 BP 130/74 08/05/25 10:54 Pulse Ox 96 08/05/25 10:54 Oxygen Delivery Method Room Air 08/05/25 10:54 BMI result Body Mass Index 37.1 Const General: comfortable; No acute distress Orientation/consciousness: patient oriented x3 Eyes General: appearance normal, both eyes and all related structures Visual Red[place]: normal visual redding by confrontation Neck Neck: Yes supple and Yes no JVD Resp Effort & Inspection: normal respiratory effort and respiratory effort not decreased Auscultation: rhonchi Cardio Palpation: no palpable S3 and no palpable S4 Heart sounds: no rubs GI Inspection: Yes normal to inspection Palpation (GI): Soft to palpation Percussion: Yes normal to percussion Auscultation: normal bowel sounds General: Yes no CVA tenderness Back/Spine/Pelvis Back: no CVA tenderness Skin General skin exam: no petechiae and no purpura Neuro General: patient oriented x3 and no focal motor deficits Extrem General: No clubbing and No edema Results Reviewed Results Reviewed: Right kidney: The right kidney measures 12.8 x 6.7 x 6.3 cm. Renal parenchymal echotexture and thickness are normal. There are no masses. There is no hydronephrosis or renal calculi. Left Kidney: The left kidney measures 13.4 x 6.7 x 6.6 cm. Renal parenchymal echotexture and thickness are normal. There is a 3.9 x 3.1 x 3.4 cm cyst at the upper pole. There is no hydronephrosis or renal calculi. US/US renal BI IMPRESSION: 3.9 x 3.1 x 3.4 cm left upper pole renal cyst. Otherwise unremarkable renal ultrasound. Nephrology Results: Sodium, (135-145) 135 mmol/L 08/03/25 Potassium, (3.3-5.1) 4.2 mmol/L 08/03/25 Chloride, (96-108) 100 mmol/L 08/03/25 Carbon Dioxide, (22-29) 28 mmol/L 08/03/25 BUN, (9-16) 8 mg/dL L 08/03/25 Creatinine, (0.5-1.4) 0.52 mg/dL 08/03/25 Calcium, (8.4-10.2) 8.9 mg/dL Δ 08/03/25 PTH Intact, (8.7-77.1) 39.2 pg/mL 07/16/24 Urine Creatinine 158.50 mg/dL 07/16/24 Renal US 01/21/25 Assessment & Plan Assessment & Plan (1) HTN (hypertension): Code(s): I10 - Essential (primary) hypertension Category: Medical Qualifiers: Hypertension type: primary hypertension Qualified Code(s): I10 - Essential (primary) hypertension (2) Hyponatremia: Code(s): E87.1 - Hypo-osmolality and hyponatremia Category: Medical Plan 69-year-old man with history of hypertension and hyponatremia. Blood pressure is well controlled. History of Hyponatremia most likely due to decreased free water clearance. He has been drinking excess free water which could be a contributing factor. Both divalproex and lisinopril could be contributing to decreased free water clearance. In the meantime encouraged him to limit free water intake. Switched lisinopril to valsartan Hyponatremia stance corrected Tolerating well Goal is to maintain serum sodium more than 133 millimoles. Renal Cyst- Continue follow up with Urology Left lower quadrant pain. Await CT scan. Follow-up with PCP . Orders: Orders Basic Metabolic Panel 1 Year E87.1 - Hypo-osmolality and hyponatremia, I10 - Essential (primary) hypertension Coding Level of Care Code Est Pt Level 4 (56251) Diagnoses Primary hypertension I10 Hypertension type: primary hypertension Hyponatremia E87.1
--- OUTSIDE RECORDS SUMMARY | 2025-08-05 13:24 | XMS_ITS | Encounter Summary ---
Author Organization [facility] Address [address] [place] [address] Care Team Providers Care Anthropometrist Name Role Phone Ezequiel Mena DO Primary Care Provider [phone] Encounter Details Date Type Department Care Team ([facility] Contact Info) Description 07/06/2025 Lab Requisition [facility] - Main Lab [address] [facility] [place] [phone] José Miguel Durant MD [address] [facility] [address] [place] [address] Dysuria Social History Tobacco Use Types Packs/Day [...] Description 07/29/2026 9:30 AM EDT Office Visit [facility] Hematology Oncology [address] [place] [phone] Zia Dunn MD [address] [place] [address] documented as of this encounter Procedures Procedure Name Priority Date/Time Associated Diagnosis Comments CHLAMYDIA TRACHOMATIS PCR Routine 07/06/2025 12:00 AM EDT Dysuria documented in this encounter Results * Chlamydia trachomatis molecular study (07/06/2025 12:00 AM EDT) Chlamydia trachomatis PCR Negative Negative LAB MOLECULAR DIAGNOSTICS METHOD 07/07/2025 11:36 AM EDT [facility] Urine Urine specimen from urethra / Unknown 07/06/2025 07/06/2025 6:44 PM EDT us José Miguel Durant MD LAB MICROBIOLOGY - GENERAL ORDERABLES Final Result [facility] [address] [place] [address], documented in this encounter Visit Diagnoses Diagnosis Dysuria documented in this encounter Care Teams Anthropometrist Relationship Specialty Start Date End Date Ezequiel Mena DO [address] [place] [phone] PCP - General Internal Medicine 12/27/20 documented as of this encounter
--- OUTSIDE RECORDS SUMMARY | 2025-08-05 13:25 | XMS_ITS | Encounter Summary ---
Author Organization [facility] Address [address] [place] [address] Phone Care Team Providers Care Lapper Name Role Phone Ezequiel Mena DO Primary Care Provider [phone] Encounter Details Date Type Department Care Team (Late st Contact Info) Description 07/24/2023 Procedure Pass MRI, [facility] - [place] [address] [place] [address] Social History Tobacco Use Types Packs/Day Years [...] [facility] [address] [place] [address] Abrahan Gómez MD, PhD [address] [place] [address] [email or web address] 08/24/2025 3:00 PM EST Office Visit [facility] Endocrine, Diabetes, and Hypertension [address] [address] Rell Barbosa MD 221 [facility] Endocrinology, Diabetes and Hypertension, [address] [place] [address] [email or web address] documented as of this encounter Visit Diagnoses Not on filedocumented in this encounter Care Teams Lapper Relationship Specialty Start Date End Date Ezequiel Mena DO [address] [place] [address] 18 [place] [address] PCP - General Internal Medicine 09/29/22 documented as of this encounter Additional Source Comments The information contained in this document represents components of the legal health record. It is not the complete legal health record.[facility]
--- OUTSIDE RECORDS SUMMARY | 2025-08-05 13:25 | XMS_ITS | Clinical Summary ---
Author Organization [facility] Address [address] [place] [address] Care Team Providers Care Operations Dispatcher Name Role Phone Unavailable Primary Care Provider [...]
--- OUTSIDE RECORDS SUMMARY | 2025-08-05 13:25 | XMS_ITS | Clinical Summary ---
Author Organization [facility] Address [address] [address] [place] [address] Phone Care Team Providers Care Pss Delivery Professional Name Role Phone Ezequiel Mena DO Primary Care Provider [phone] Allergies Active Allergy Reactions Criticality Noted Date [...] Info) Description 08/12/2025 10:30 AM EST Appointment [facility] [address] [place] [address] Abrahan Gómez MD, PhD [address] [place] [address] [email or web address] 08/24/2025 3:00 PM EST Office Visit [facility] Endocrine, Diabetes, and Hypertension 221 [facility] [address] [place] [address] Rell Barbosa MD 221 [facility] Endocrinology, Diabetes and Hypertension, [address] [place] [address] [email or web address] Due Date Last Done Comments [...] 139 135 - 145 mEq/L Comment:Done At [facility] Potassium - External 4.4 3.5 - 5.5 mmol/L Comment:Done At [facility] Chloride - External 104 96 - 110 mmol/L Comment:Done At [facility] CO2 - External 28 21 - 32 mmol/L Comment:Done At [facility] BUN - External 20 5 - 25 mg/dL Comment:Done At [facility] Creatinine, serum - External 0.73 0.7 - 1.3 mg/dL Comment:Done At [facility] BUN/Creatinine - External eGFR - External eGFR () - External Glucose - External 101(A) 70 - 100 mg/dL Comment:Done At [facility] Calcium - External 9.6 8.5 - 10.5 mg/dL Comment:Done At [facility] Phosphorus - External Magnesium - External Albumin - External 3.8 3.2 - 5.0 G/dL Comment:Done At [facility] Bilirubin, total - External 0.4 0.0 - 1.4 mg/dL Comment:Done At [facility] Bilirubin, direct - External Bilirubin (conjugated) - External Bilirubin, indirect - External Protein - External 7.1 6.0 - 8.0 G/dL Comment:Done At [facility] Alkaline Phosphatase - External 72 4 - 121 U/L Comment:Done At [facility] AST - External 18 10 - 42 U/L Comment:Done At [facility] ALT - External 33 10 - 60 U/L Comment:Done At [facility] Amylase - External Lipase (u/L) - External Cholesterol, total - External 167 0 - 200 mg/dL Comment:Done At [facility] LDL - External 109(A) 0 - 100 mg/dL Comment:Done At [facility] Triglycerides - External 203(A) 0 - 150 mg/dL Comment:Done At [facility] HDL - External 18(A) >=40 mg/dL Comment:Done At [facility] TIBC - External Iron - [...] & B MEDICARE PART A & B [facility] MEDICARE REPLACEMENT MEDICARE PART A & B [facility] MEDICARE REPLACEMENT MEDICARE PART A & B MEDICARE PART A & B MEDICARE PART A & B [facility] REPLACEMENT MEDICARE PART A & B [facility] MEDICARE REPLACEMENT MEDICARE PART A & B [facility] MEDICARE REPLACEMENT MEDICARE PART A & B [facility] MEDIC[facility]PLACEMENT Care Teams Pss Delivery Professional Relationship Specialty Start Date End Date Ezequiel Mena DO [address] [place] [address] [address] [place] [address] PCP - General Internal Medicine 09/29/22 Additional Source Comments The information contained in this document represents components of the legal health record. It is not the complete legal health record.[facility]
--- OUTSIDE RECORDS SUMMARY | 2025-08-05 13:25 | XMS_ITS | Clinical Summary ---
Author Organization [facility] Address [address] [id number] Care Team Providers Care Senior Power Scheduler Name Role Phone Ezequiel Mena DO Primary Care Provider Allergies Active Allergy Reactions Criticality Noted Date [...] age to complete this topic Care Teams Senior Power Scheduler Relationship Specialty Start Date End Date Ezequiel Mena DO [address] [place] [address] [address] [place] [address] PCP - General Internal Medicine 05/01/24
--- OUTSIDE RECORDS SUMMARY | 2025-08-05 13:25 | XMS_ITS | Clinical Summary ---
Author Organization [facility] Address [address] [place] [address] Phone Care Team Providers Care Forestry Scientist Name Role Phone Ezequiel Mena DO Primary Care Provider [phone] Allergies Active Allergy Reactions Criticality Noted Date [...] (12/17/2023): Comments: dx'ed 2009 Bipolar 1 disorder ([facility] V24, [facility] V28) Hemorrhoids 12/11/2013 Microscopic hematuria 12/11/2013 Pulmonary [...] Description 07/29/2025 9:30 AM EDT Office Visit [facility] Hematology Oncology [address] [place] [address] Zia Dunn MD History of recurrent deep vein thrombosis (Primary Dx) 07/06/2025 Lab Requisition [facility] Main Lab [address] [facility] [place] [address] José Miguel Durant MD Dysuria [...] EDT Office Visit [facility] Hematology Oncology [address] [place] [address] Zia Dunn MD [address] [place] [address] Health Maintenance Due Date Last Done Comments [...] K/mcL LAB HEMETOLOGY METHOD 07/29/2025 12:21 PM [facility] RBC 4.80 4.50 - 5.50 M/mcL LAB HEMETOLOGY METHOD 07/29/2025 12:21 PM [facility] Hemoglobin 14.4 13.5 - 17.5 g/dL LAB HEMETOLOGY METHOD 07/29/2025 12:21 PM [facility] Hematocrit 43.8 42.0 - 54.0 % LAB HEMETOLOGY METHOD 07/29/2025 12:21 PM [facility] MCV 92.2 79.0 - 98.0 FL LAB HEMETOLOGY METHOD 07/29/2025 12:21 PM [facility] MCH 30.3 27.0 - 32.0 pcg LAB HEMETOLOGY METHOD 07/29/2025 12:21 PM [facility] MCHC 32.9 32.0 - 37.0 g/dL LAB HEMETOLOGY METHOD 07/29/2025 12:21 PM [facility] RDW 12.9 11.0 - 15.0 % LAB HEMETOLOGY METHOD 07/29/2025 12:21 PM [facility] Platelets 188 130 - 400 K/mcL LAB HEMETOLOGY METHOD 07/29/2025 12:21 PM [facility] MPV 12.1(H) 7.0 - 11.0 FL LAB HEMETOLOGY METHOD 07/29/2025 12:21 PM [facility] NRBC 0.0 <1.0 % LAB HEMETOLOGY METHOD 07/29/2025 12:21 PM [facility] NRBC Absolute 0.00 <0.10 K/mcL LAB HEMETOLOGY METHOD 07/29/2025 12:21 PM [facility] Neutrophils Relative 62.1 % LAB HEMETOLOGY METHOD 07/29/2025 12:21 PM [facility] Lymphocytes Relative 21.7 % LAB HEMETOLOGY METHOD 07/29/2025 12:21 PM [facility] Monocytes Relative 11.6 % LAB HEMETOLOGY METHOD 07/29/2025 12:21 PM [facility] Eosinophils Relative 3.0 % LAB HEMETOLOGY METHOD 07/29/2025 12:21 PM [facility] Basophils Relative 0.8 % LAB HEMETOLOGY METHOD 07/29/2025 12:21 PM [facility] Immature Granulocytes Relative 0.8 % LAB HEMETOLOGY METHOD 07/29/2025 12:21 PM [facility] Neutrophils Absolute 4.59 1.50 - 7.00 K/mcL LAB HEMETOLOGY METHOD 07/29/2025 12:21 PM [facility] Lymphocytes Absolute 1.60 1.00 - 5.00 K/mcL LAB HEMETOLOGY METHOD 07/29/2025 12:21 PM [facility] Monocytes Absolute 0.86 0.20 - 1.00 K/mcL LAB HEMETOLOGY METHOD 07/29/2025 12:21 PM [facility] Eosinophils Absolute 0.22 0.00 - 0.50 K/mcL LAB HEMETOLOGY METHOD 07/29/2025 12:21 PM [facility] Basophils Absolute 0.06 0.00 - 0.20 K/mcL LAB HEMETOLOGY METHOD 07/29/2025 12:21 PM EDT [facility] Immature Granulocytes Absolute 0.06(H) 0.00 - 0.03 K/[facility] LAB HEMETOLOGY METHOD 07/29/2025 12:21 PM EDT [facility] Blood Venous blood specimen / Unknown Venipuncture / Unknown 07/29/2025 9:53 AM EDT 07/29/2025 11:41 AM EDT us Zia Dunn MD LAB BLOOD ORDERABLES Final R esult [facility] [address] [place] [address], [place] [phone] * Chlamydia trachomatis molecular study (07/06/2025 12:00 AM EDT) [facility] Chlamydia trachomatis PCR Negative Negative LAB MOLECULAR DIAGNOSTICS METHOD 07/07/2025 11:36 AM EDT [facility] Urine Urine specimen from urethra / Unknown 07/06/2025 07/06/2025 6:44 PM EDT us José Miguel Durant MD LAB MICROBIOLOGY - GENERAL ORDERABLES Final Result Performing Organization Address City/[facility]/ZIP Co de Phone Number [facility] [address] [place] [address], [place] [phone] * (ABNORMAL) Lipid panel with reflex to direct LDL (03/24/2025 1:56 PM EDT) [facility] Cholesterol 144 0 - 200 mg/dL LAB CHEMISTRY METHOD 03/24/2025 4:28 PM EDT [facility] Triglycerides 220(H) 0 - 150 mg/dL LAB CHEMISTRY METHOD 03/24/2025 4:28 PM EDT [facility] HDL 19(L) >=40 mg/dL LAB CHEMISTRY METHOD 03/24/2025 4:28 PM EDT [facility] LDL Calculated 81 0 - 100 mg/dL LAB CHEMISTRY METHOD 03/24/2025 4:28 PM EDT [facility] VLDL Cholesterol Efren 44 mg/dL LAB CHEMISTRY METHOD 03/24/2025 4:28 PM EDT [facility] Non HDL Chol. (LDL+VLDL) 125 <145 mg/dL LAB CHEMISTRY METHOD 03/24/2025 4:28 PM EDT [facility] Chol/HDL Ratio 7.6(H) 0.0 - 4.4 LAB CHEMISTRY METHOD 03/24/2025 4:28 PM EDT [facility] Blood Venous blood specimen / Unknown Venipuncture / Unknown 03/24/2025 1:56 PM EDT 03/24/2025 1:56 PM EDT us Adalid Linda LAB BLOOD ORDERABLES Final Resul t [facility] [address] [place] [address], [place] [phone] * (ABNORMAL) Comprehensive metabolic panel (03/24/2025 1:56 PM EDT) Sodium 140 133 - 145 mmol/L LAB CHEMISTRY METHOD 03/24/2025 4:28 PM [facility] Potassium 4.2 3.5 - 5.5 mmol/L LAB CHEMISTRY METHOD 03/24/2025 4:28 PM [facility] Chloride 106 96 - 110 mmol/L LAB CHEMISTRY METHOD 03/24/2025 4:28 PM [facility] CO2 25 21 - 32 mmol/L LAB CHEMISTRY METHOD 03/24/2025 4:28 PM [facility] Anion Gap 9 3 - 11 LAB CHEMISTRY METHOD 03/24/2025 4:28 PM EDT [facility] Glucose 118(H) 70 - 100 mg/dL LAB CHEMISTRY METHOD 03/24/2025 4:28 PM [facility] BUN 13 5 - 25 mg/dL LAB CHEMISTRY METHOD 03/24/2025 4:28 PM [facility] Creatinine 0.61(L) 0.70 - 1.30 mg/dL LAB CHEMISTRY METHOD 03/24/2025 4:28 PM [facility] eGFR 104 >=60 mL/min/1. 73m2 LAB CHEMISTRY METHOD 03/24/2025 4:28 PM [facility] Comment:Calculation based on the Chronic Kidney Disease Epidemiology Collaboration (CKD-EPI) equation refit without adjustment for race. BUN/Creatinine Ratio 21.3 LAB CHEMISTRY METHOD 03/24/2025 4:28 PM [facility] Calcium 9.2 8.5 - 10.5 mg/dL LAB CHEMISTRY METHOD 03/24/2025 4:28 PM [facility] AST (SGOT) 20 10 - 42 unit/L LAB CHEMISTRY METHOD 03/24/2025 4:28 PM [facility] ALT (SGPT) 28 10 - 60 unit/L LAB CHEMISTRY METHOD 03/24/2025 4:28 PM [facility] Alkaline Phosphatase 65 42 - 121 unit/L LAB CHEMISTRY METHOD 03/24/2025 4:28 PM [facility] Total Protein 6.5 6.0 - 8.0 g/dL LAB CHEMISTRY METHOD 03/24/2025 4:28 PM [facility] Albumin 3.6 3.2 - 5.0 g/dL LAB CHEMISTRY METHOD 03/24/2025 4:28 PM [facility] Total Bilirubin 0.4 0.0 - 1.4 mg/dL LAB CHEMISTRY METHOD 03/24/2025 4:28 PM [facility] Blood Venous blood specimen / Unknown Venipuncture / Unknown 03/24/2025 1:56 PM EDT 03/24/2025 1:56 PM EDT us Adalid Linda LAB BLOOD ORDERABLES Final Resul t [facility] [address] [place] [address], [place] [phone] from Last 3 Months or Most Recently Relevant to Health Maintenance Insurance [facility] MEDICARE Member Subscriber Plan / Payer (Ef fective 2021-Present) Name:Imer Bennett Relation to Subscriber:Self Name:Imer Bennett Payer ID:[id number] Group ID:[id number] Type:Not on file Address: [place] [address] [address] [phone] Care Teams Forestry Scientist Relationship Specialty Start Date End Date Ezequiel Mena DO [address] [place] [phone] PCP - General Internal Medicine 12/27/20
--- OUTSIDE RECORDS SUMMARY | 2025-08-05 13:25 | XMS_ITS | Encounter Summary ---
Author Organization [facility] Address [address] [place] [address] Phone Care Team Providers Care Lockstitch Back Maker Name Role Phone Vickileida Ezequiel Primary Care Provider [phone] Encounter Details Date Type Department Care Team (Late st Contact Info) Description 12/14/[address] [facility] Emergency Department [address] [place] [address] Juarez Glover MD [address] [place] [address] [email or web address] Social History Tobacco Use Types Packs/Day [...] 12/14/2022 3:21 PM Vivek Grant RN * [place] Suicide Severity Rating Scale (Screener/Recent Self-Report) Question [...] [facility] [address] [place] [address] Abrahan Gómez MD, PhD [address] [place] [address] [email or web address] 08/24/2025 3:00 PM EST Office Visit [facility] Endocrine, Diabetes, and Hypertension [address] [address] Rell Barbosa MD 221 [facility] Endocrinology, Diabetes and Hypertension, [address] [place] [address] [email or web address] documented as of this encounter Visit Diagnoses Not on filedocumented in this encounter Care Teams Lockstitch Back Maker Relationship Specialty Start Date End Date Ezequiel Mena DO [address] [place] [address] [address] [place] [address] PCP - General Internal Medicine 09/29/22 documented as of this encounter Additional Source Comments The information contained in this document represents components of the legal health record. It is not the complete legal health record.[facility]
--- OUTSIDE RECORDS SUMMARY | 2025-08-05 13:25 | XMS_ITS | Encounter Summary ---
Author Organization [facility] Address [address] [place] [address] Phone Care Team Providers Care University Librarian Name Role Phone Jack Perez MD Primary Care Provid er Ezequiel Mena DO Primary Care Provider [phone] Encounter Details Date Type Department Care Team (Late st Contact Info) Description 12/05/2021 Ophth Exam [facility] [address] [place] [address] Clinton Hammond MD, MPH [address] [place] [address] [email or web address] Social History Tobacco Use Types Packs/Day [...] No Risk Indicated 12/05/2021 9:41 AM EST Dyu Sharif RN * [place] Suicide Severity Rating Scale (Screener/Recent Self-Report) Question [...] Info) Description 08/12/2025 10:30 AM EST Appointment [facility] [address] [place] [address] Abrahan Gómez MD, PhD [address] [place] [address] [email or web address] 08/24/2025 3:00 PM EST Office Visit [facility] Endocrine, Diabetes, and Hypertension [address] [address] Rell Barbosa MD 221 [facility] Endocrinology, Diabetes and Hypertension, [address] [place] [address] [email or web address] documented as of this encounter Visit Diagnoses Not on filedocumented in this encounter Care Teams University Librarian Relationship Specialty Start Date End Date Jack Perez MD PCP - General 04/07/14 09/28/22 Ezequiel Mena DO [address] [place] [address] [address] [place] [address] PCP - General Internal Medicine 09/29/22 documented as of this encounter Additional Source Comments The information contained in this document represents components of the legal health record. It is not the complete legal health record.[facility]
--- OUTSIDE RECORDS SUMMARY | 2025-08-05 13:25 | XMS_ITS | Patient Health Record ---
Author Organization [facility] Address [address] [place] [address] Care Team Providers Care Hose Tender Name Role Phone Rajesh YOU, Ezequiel Primary Care Provider Shruti Quintero Unavailable [phone] Allergies Allergen (clinical drug ingredient) Drug/Non Drug [...] 07/21/2025 Encounters Encounter Location Date Provider Diagnosis [facility] [address] 07/21/2025 Shruti Black Tinea pedis of both feet B35.3 and Ingrown nail L60.0 [facility] [address] [place] [address] 07/07/2025 Shruti Black Assessments Encounter Date Diagnosis [...] Insured Coverage Start Date Coverage End Date [facility] [employer] Claims [place] [id number] [place] [id number] Imer Bennett Self - patient is the insured Medical (General) History Medical History History ICD Code Anxiety Depression High Blood Pressure Stomach Ulcer Thyroid Ulcer Surgical History Surgery Date(Month/Year) knee replacement right knee Hospitalization History Reason Date(Month/Year) infection in mouth 08/01
--- OUTSIDE RECORDS SUMMARY | 2025-08-05 13:25 | XMS_ITS | Encounter Summary ---
Author Organization [facility] Address [address] [place] [address] Phone Care Team Providers Care Dining Car Waiter/Waitress Name Role Phone Jack Perez MD Primary Care Provid er Ezequiel Mena DO Primary Care Provider [phone] Encounter Details Date Type Department Care Team (Late st Contact Info) Description 02/23/2022 Procedure Pass [facility] 4 ENDO DEPT [address] [facility], 4th [place] [address] Social History Tobacco Use Types Packs/Day Years [...] EST Appointment [facility] [address] [place] [address] Abrahan Gómez MD, PhD [address] [place] [address] [email or web address] 08/24/2025 3:00 PM EST Office Visit [facility] Endocrine, Diabetes, and Hypertension [address] [facility] 2nd [place] [address] Rell Barbosa MD 221 [facility] Endocrinology, Diabetes and Hypertension, [address] [place] [address] [email or web address] documented as of this encounter Visit Diagnoses Not on filedocumented in this encounter Care Teams Dining Car Waiter/Waitress Relationship Specialty Start Date End Date Jack Perez MD PCP - General 04/07/14 09/28/22 Ezequiel Mena DO [address] [place] [address] PCP - General Internal Medicine 09/29/22 documented as of this encounter Additional Source Comments The information contained in this document represents components of the legal health record. It is not the complete legal health record.[facility]
== END 2025-08-05 11:14 | disposition home or self-care (01) ==
LOC: HO.HKAS 10:44
PROVIDERS: PCP Internal Medicine; Visit Provider Internal Medicine Hypertension Specialist
DX: I10 Essential (primary) hypertension (principal); E87.1 Hypo-osmolality and hyponatremia
CPT/HCPCS: 99214

== ENCOUNTER → 2025-08-05 10:43 | Outpatient (BNVA) | payer OTHER, SELFPAY | PROVIDERS: PCP Internal Medicine; Visit Provider Internal Medicine Hypertension Specialist | DX: E87.1 Hypo-osmolality and hyponatremia (principal); I10 Essential (primary) hypertension | CPT/HCPCS: 99212 ==